=== PATIENT | male | born 1980 | race Caucasian/White ===

== ENCOUNTER 2018-04-01 10:23 | Observation (INO) | payer OTHER, SELFPAY ==
[2018-04-01] VITALS (9 sets, daily range): BP systolic 112–175; BP diastolic 76–127; PULSE 83–125; RESP 15–25; TEMP 36.7–36.9; O2SAT 93–99; BMI 27.0; BMI 24.4
--- NOTE | 2018-04-01 10:38 | EKG12_ITS ---
Test Reason : SOB Blood Pressure : / mmHG Vent. Rate : 113 BPM Atrial Rate : 113 BPM P-R Int : 134 ms QRS Dur : 084 ms QT Int : 322 ms P-R-T Axes : 061 052 048 degrees QTc Int : 441 ms Sinus tachycardia Otherwise normal ECG Confirmed by ELLY NICHOLS, AVELINO ([id number]), editor farm journal DIAMOND KIM ([id number]) on 04/03/2018 4:20:00 PM Referred By: Alhaji Martinez Confirmed By:AVELINO SANABRIA MD
--- NOTE | 2018-04-01 10:42 | NURSING ---
NO OLD EKGS
[2018-04-01 10:53] LABS: Absolute Lymphocyte Count 2.04 X10^3/ul (0.83-4.51); Absolute Neutrophil Count 7.9 X10^3/uL (2.0-7.7); Basophil# 0.02 X10^3/uL; Basophil% 0.2 % (0-1); Eosinophil# 0.32 X10^3/uL; Hematocrit 47.3 % (40-54); Hemoglobin 16.7 g/dl (13.0-16.5); Lymphocyte # 2.04 X10^3/ul (4.0); Lymphocyte % 18.9 % (19-41); Mean Corp Hgb Conc 35.3 g/gl (32-36); Mean Corpuscular Hgb 35.4 pg (27.0-32.0); Mean Corpuscular Volume 100.2 fL (80-94); Mean Platelet Vol. 9.2 fl (6.2-12.0); Monocyte# 0.44 X10^3/uL; Monocyte% 4.1 % (0-10); Neutrophil # 7.91 X10^3/uL (2.7-7.7); Neutrophil % 73.4 % (47-70); POSITIVE COUNT NO; POSITIVE DIFFERENTIAL NO; POSITIVE MORPHOLOGY NO; Platelet Count 169 K/mm3 (150-450); RBC Distribution Width CV 12.1 % (11.6-14.6); RBC Distribution Width SD 44.4 fl (35.1-43.9); Red Blood Count 4.72 M/mm3 (4.6-6.2); White Blood Count 10.8 K/mm3 (4.4-11.0)
--- NOTE | 2018-04-01 10:53 | ED.VISSUMM ---
- ER Visit Summary Date of Service: 04/01/18 Chief Complaint: Rash History of Present Illness: The patient is a 37 M presenting for evaluation secondary to a rash. Patient states that about 2 days ago he fell asleep with his hooded sweatshirt on. He woke up with a rash over his left posterior neck and upper shoulder area which he states that he has been putting antibiotic ointment on. He states that just prior to arrival however he broke out in a head to toe rash that initially was extremely itchy, and now was not so much itching. He denies that there is any sort of prodrome associated with this such as bug bite, fever, illness such as nausea vomiting diarrhea abdominal pain cough or sore throat. He denies any new exposures such as closed, foods, pets, detergents. Patient states that he did switch soaps but this was a couple of weeks ago, and nothing recently. He is never had any prior similar episodes in the past. He denies any travel. He denies anybody with any sort of similar skin rashes. He denies any history of injections or drug use. Denies any new [id number] remedies. Physical Examination: Vital signs notable for heart rate of 114. Well-nourished male no acute distress. Head normocephalic. No conjunctival pallor or scleral icterus. Mucous membranes are moist, no evidence of lip or tongue swelling oropharynx is clear. Neck was supple. Heart was tachycardic and regular no murmurs. Lung sounds are clear. Abdomen was soft nontender extremities were nontender nonedematous. Skin exam shows evidence of what appears to be healing vesicles on patient's left upper back. There are raised palpable wheals noted on the patient's chest, flanks, and arms. Some of these are rather erythematous, but still blanching especially one on the patient's right AC. Negative Nikolsky sign. Test Results: CBC, CMP, coags, urinalysis, toxicology, lactic acid, ethanol unremarkable. Chest x-ray unremarkable. EKG shows sinus tachycardia with rate of 113 no ischemic changes. Emergency Department Course and Treatment: Patient presented for evaluation secondary to a rash. This was a very abnormal appearing rash, so I performed a workup on the patient which ultimately was found to be negative. Patient was given Benadryl Pepcid Solu-Medrol and a liter of normal saline. Repeat evaluation actually showed the patient's rash to be worsening with involvement of his right elbow, nonblanching of the wheel on the patient's right forearm. And some worsening of the rash diffusely across the patient's rest of his body. This point I am unsure if this is infectious, allergic, rheumatologic, but it is worsening and I do believe that he warrants observation. I discussed this with hospitalist and the patient will be admitted. Disposition: Admission Impression: 1. Worsening rash This note was generated with [employer] dictation software. It may contain incorrect words, spelling, and punctuation that were not noted in review of the chart prior to signing ED Disposition - Plan for ED Patient: Chief Complaint: Allergic Reaction Referrals: Care Physician,No Primary [Primary Care Provider] -
[2018-04-01 10:56] LABS: Prothrombin Time (Protime)PT. 12.7 SECONDS (11.7-14.9)
[2018-04-01] MEDS: Famotidine 20 MG Tablet 40 MG PO (10:57)
[2018-04-01] MEDS: 0.9% Normal Saline 1,000 ML 1000 ML IV (10:57)
[2018-04-01] MEDS: MethylPREDNISolone 125 MG/2 ML Vial IV (10:57)
[2018-04-01] MEDS: DiphenhydrAMINE 50 MG/ML Syringe 25 MG IV (10:58)
[2018-04-01 11:05] LABS: ALB/GLOB Ratio 0.9 RATIO (0.9-2.4); AST(SGOT) 60 U/L (15-37); Alanine Aminotransfer ALT/SGPT 87 U/L (16-61); Albumin, Serum 3.9 g/dL (3.2-5.0); Alkaline Phosphatase 72 U/L (45-117); Anion Gap 8 (5-15); BUN 9 mg/dL (7-18); Chloride 107 mmol/L (98-107); EST Glomerular Filtration Rate 89 mL/min (>60); Est Glom Filt Rate - Afr Amer 107 mL/min (>60); Estimated Creatinine Clearance 113.19 ml/min; Globulin 4.2 g/dL (2.2-4.2); Glucose 105 mg/dL (74-106); Potassium 3.6 mmol/L (3.5-5.1); Protein, Total 8.1 g/dL (6.4-8.2); Sodium Level 138 mmol/L (136-145)
--- NOTE | 2018-04-01 11:15 | RAD_ITS ---
STUDY: X-RAY CHEST REASON FOR EXAM: Male, 37 years old. Allergic reaction. TECHNIQUE: PA and lateral views of the chest. COMPARISON: None. FINDINGS: The lungs are clear and expanded. There is no demonstrated pleural abnormality. Normal size heart. Normal mediastinum and yazan. Normal visualized pulmonary arteries. Normal visualized aortic arch and descending thoracic aorta. Normal visualized thoracic spine. Normal visualized ribs, clavicles, and shoulders. There is no demonstrated abnormality of the visualized soft tissue structures of the upper abdomen. RAD/Chest PA and Lateral IMPRESSION: No evidence of acute cardiopulmonary process. Electronically Signed: Jackson Monge DO at 11:30 EST , Service support ,
[2018-04-01 11:31] LABS: Lactic Acid 1.4 mmol/L (0.4-2.0)
[2018-04-01 11:34] LABS: Alcohol, Blood (Medical)-Serum < 3.0 mg/dL
[2018-04-01 12:13] LABS: Mucous, Urine 0 SEEN /hpf (<or=2+); Red Blood Cells-Urine 0 SEEN /hpf (0-5); Squamous Epithelial Cells - UA 0 SEEN /hpf (0-5); White Blood Cells 0 SEEN /hpf (0-5)
[2018-04-01 12:31] LABS: Color, Urine Yellow (Yellow); Glucose, Dipstick Normal (Normal); Ketone-Dipstick Negative (Negative); Leukocyte Esterase-Dipstick Negative /ul (Negative); Nitrite-Dipstick Negative (Negative); Occult Blood-Urine Negative /ul (Negative); Protein-Dipstick Negative (Negative); Urine Bilirubin Dipstick Negative (Negative); Urine Clarity Sl. Cloudy (Clear); Urine Urobilinogen Normal (Normal)
[2018-04-01 12:35] LABS: Amphetamine Urine VISTA NEGATIVE (<1000 ng/mL); Bacteria RARE /hpf (None Seen); Barbiturate Urine VISTA NEGATIVE (< 200 ng/mL); Benzodiazepine Urine VISTA NEGATIVE (< 200 ng/mL); Cocaine Urine VISTA NEGATIVE (< 300 ng/mL); Ecstacy Urine VISTA NEGATIVE (< 500 ng/mL); Methadone Urine VISTA NEGATIVE (< 300 ng/mL); PCP Urine VISTA NEGATIVE (< 25 ng/mL); THC Urine VISTA NEGATIVE (< 50 ng/mL); Vista UDS pH Range 5
--- NOTE | 2018-04-01 13:02 | NURSING ---
MED SURG RASH SEMENTI
--- NOTE | 2018-04-01 14:30 | PCM.HP.STD ---
Problem List (1) Tobacco dependence Status: Chronic History of Present Illness Date of Admission: 04/01/18 Chief Complaint: Rash. The patient is a 37 year old M who presents emergency room due to rash which began this morning. Patient reports itching on the back of the neck area which began this morning. He states he applied antibacterial cream with no relief. He states his rash began to appear other places including lower back, right arm and generalized as well. He reports itching has resolved. Denies fever, chills. He lives at home alone. Not on any daily medications. Has not taken any new medications or other drugs. Denies history of similar rash. He denies any medical history. He is a daily smoker and drinks 2 beers per day. Past Medical History Past Medical History (Chronic Problems): Chronic Problems Tobacco dependence (Chronic) Allergies No Known Allergies Allergy (Verified 04/01/18 10:24) Home Medications: Ambulatory Orders Medication Instructions Recorded NK 04/01/18 Surgical History: no surgical history Psychiatric History: No pertinent psych hx Smoking Status: Current every day smoker Tobacco Use: Cigarettes Drugs: None - *Family History Maternal History Items: Diabetes Paternal History Items: Heart Disease Review of Systems Constitutional: Denies: Chills, Fever, Weight Change HEENT: Denies: Head Aches, Sinus Congestion, Sinus Drainage Cardiovascular: Denies: Chest Pain, Palpitations Respiratory: Denies: Cough, Shortness of breath at rest, Sputum production Gastrointestinal: Denies: Abdominal Pain, Nausea, Vomiting Genitourinary: Denies: Dysuria Musculoskeletal: Denies: Joint Pain, Joint Tenderness Skin: Reports: Rash - Generalized, associated itching Neurological: Denies: Numbness, Tingling, Focal weakness Psychiatric: Denies: Anxiety, Depression, Homicidal Ideations, Suicidal Ideations Hematologic/ Lymphatic: Denies: Easy Bruising, Easy Bleeding VTE Information - Inpt Only VTE Present on Admission: No VTE Mechan Device Prophylaxis: None VTE Pharm Prophylaxis ordered?: No Reason prophylaxis not ordered:: Treatment Not Indicated - Physical Exam General: Alert, Oriented x3, Cooperative, No apparent distress HEENT: Atraumatic, PERRLA, EOMI, Normocephalic Neck: Supple, No JVD, Negative Carotid Bruits Lungs: Clear to auscultation, Normal air movement Cardiovascular: Regular rate, Regular Rhythm, Normal S1, Normal S2, No murmurs Abdomen: Bowel Sounds Present, Soft, Non Tender, Non-Distended Extremities: No clubbing, No cyanosis, No edema, Capillary Refill Less than 3 Seconds Skin: - - Generalized rash with worsened areas on the neck, right arm and lower back. Honey crust colored lesions as well as bullae which appear to be exudate filled with surrounding erythema. Vital Signs Temp Pulse Resp BP Pulse Ox 98.4 F 83 18 158/107 H 93 04/01/18 10:24 04/01/18 13:00 04/01/18 13:00 04/01/18 13:00 04/01/18 13:00 Oxygen Delivery Method Room Air Weight: 205 lb Body Mass Index (BMI) 27.0 Laboratory Tests Past 24 Hrs 04/01/18 04/01/18 04/01/18 10:33 10:33 10:33 WBC 10.8 RBC 4.72 Hgb 16.7 H Hct 47.3 MCV 100.2 H MCH 35.4 H MCHC 35.3 RDW 12.1 RDW Differential 44.4 H Plt Count 169 MPV 9.2 Immature Gran % (Auto) 0.400 Neut % (Auto) 73.4 H Lymph % (Auto) 18.9 L [place] % (Auto) 4.1 Eos % (Auto) 3.0 Baso % (Auto) 0.2 Absolute Neuts (auto) 7.9 H Absolute Lymphs (auto) 2.04 Total Counted Not Reportable PT 12.7 INR 1.0 APTT 23.0 L Sodium 138 Potassium 3.6 Chloride 107 Carbon Dioxide 23.0 Anion Gap 8 BUN 9 Creatinine 1.00 Estim Creat Clear Calc 113.19 Est GFR (MDRD) Af Amer 107 Est GFR (MDRD) Non-Af 89 BUN/Creatinine Ratio 9.0 L Glucose 105 Lactic Acid Calcium 9.0 Total Bilirubin 0.90 AST 60 H ALT 87 H Alkaline Phosphatase 72 Total Protein 8.1 Albumin 3.9 Globulin 4.2 Albumin/Globulin Ratio 0.9 Urine Color Urine Clarity Urine pH Ur Specific [place] Urine Protein Urine Glucose (UA) Urine Ketones Urine Occult Blood Urine Nitrite Urine Bilirubin Urine Urobilinogen Ur Leukocyte Esterase Urine RBC Urine WBC Ur Squamous Epith Cells Urine Bacteria Urine Mucus Urine Opiates Screen Urine Methadone Screen Ur Barbiturates Screen Ur Phencyclidine Scrn Ur Amphetamines Screen U Methamphetamin-MDMA U Benzodiazepines Scrn Urine Cocaine Screen U Cannabinoids Screen Ur Drug Screen Comment Ethyl Alcohol 04/01/18 04/01/18 04/01/18 10:55 10:55 11:55 WBC RBC Hgb Hct MCV MCH MCHC RDW RDW Differential Plt Count MPV Immature Gran % (Auto) Neut % (Auto) Lymph % (Auto) [place] % (Auto) Eos % (Auto) Baso % (Auto) Absolute Neuts (auto) Absolute Lymphs (auto) Total Counted PT INR APTT Sodium Potassium Chloride Carbon Dioxide Anion Gap BUN Creatinine Estim Creat Clear Calc Est GFR (MDRD) Af Amer Est GFR (MDRD) Non-Af BUN/Creatinine Ratio Glucose Lactic Acid 1.4 Calcium Total Bilirubin AST ALT Alkaline Phosphatase Total Protein Albumin Globulin Albumin/Globulin Ratio Urine Color Yellow Urine Clarity Sl. Cloudy Urine pH 6.0 Ur Specific [place] 1.010 Urine Protein Negative Urine Glucose (UA) Normal Urine Ketones Negative Urine Occult Blood Negative Urine Nitrite Negative Urine Bilirubin Negative Urine Urobilinogen Normal Ur Leukocyte Esterase Negative Urine RBC 0 SEEN Urine WBC 0 SEEN Ur Squamous Epith Cells 0 SEEN Urine Bacteria RARE Urine Mucus 0 SEEN Urine Opiates Screen Urine Methadone Screen Ur Barbiturates Screen Ur Phencyclidine Scrn Ur Amphetamines Screen U Methamphetamin-MDMA U Benzodiazepines Scrn Urine Cocaine Screen U Cannabinoids Screen Ur Drug Screen Comment Ethyl Alcohol < 3.0 04/01/18 11:55 WBC RBC Hgb Hct MCV MCH MCHC RDW RDW Differential Plt Count MPV Immature Gran % (Auto) Neut % (Auto) Lymph % (Auto) [place] % (Auto) Eos % (Auto) Baso % (Auto) Absolute Neuts (auto) Absolute Lymphs (auto) Total Counted PT INR APTT Sodium Potassium Chloride Carbon Dioxide Anion Gap BUN Creatinine Estim Creat Clear Calc Est GFR (MDRD) Af Amer Est GFR (MDRD) Non-Af BUN/Creatinine Ratio Glucose Lactic Acid Calcium Total Bilirubin AST ALT Alkaline Phosphatase Total Protein Albumin Globulin Albumin/Globulin Ratio Urine Color Urine Clarity Urine pH Ur Specific [place] Urine Protein Urine Glucose (UA) Urine Ketones Urine Occult Blood Urine Nitrite Urine Bilirubin Urine Urobilinogen Ur Leukocyte Esterase Urine RBC Urine WBC Ur Squamous Epith Cells Urine Bacteria Urine Mucus Urine Opiates Screen NEGATIVE Urine Methadone Screen NEGATIVE Ur Barbiturates Screen NEGATIVE Ur Phencyclidine Scrn NEGATIVE Ur Amphetamines Screen NEGATIVE U Methamphetamin-MDMA NEGATIVE U Benzodiazepines Scrn NEGATIVE Urine Cocaine Screen NEGATIVE U Cannabinoids Screen NEGATIVE Ur Drug Screen Comment Ethyl Alcohol Assessment/Plan 1. Generalized rash, high suspicion for bullous impetigo based on appearance with associated erythema nodosum-obtain culture if bullae area opens. Begin Bactrim DS 1 tab p.o. twice daily for 5 days given extent of lesions. Isolation precautions. Continue benadryl for itching. 2. Tobacco dependence-encouraged tobacco cessation. Nicotine replacement patch. DVT prophylaxis-not indicated. Encourage early ambulation. This patient was seen by RUSSELL Pérez under the supervision of Dr. Martinez.
[2018-04-01 14:53] LABS: Erythrocyte Sedimentation Rate 16 mm/hr (0-15)
[2018-04-01 14:59] LABS: CRP 4.11 mg/L (0.0-3.0)
[2018-04-01] MEDS: DiphenhydrAMINE 25 MG Capsule PO ×3 (16:57→23:31)
[2018-04-01] MEDS: 0.9% NaCl Peripheral Flush Adult/Peds IV (23:31)
[2018-04-02 02:11] VITALS: BP 132/97; PULSE 95; RESP 18; TEMP 36.9; O2SAT 99
[2018-04-02] MEDS: DiphenhydrAMINE 25 MG Capsule PO (06:21)
[2018-04-02] MEDS: 0.9% NaCl Peripheral Flush Adult/Peds IV (06:22)
[2018-04-02 08:11] VITALS: BP 132/92; PULSE 77; RESP 16; TEMP 36.7; O2SAT 97
[2018-04-02] MEDS: CHLORHEXIDINE GLUC 2% CLOTH 1 EACH TOWELETTE TOPICAL (09:21)
--- NOTE | 2018-04-02 10:32 | DCINST_ITS ---
- Discharge Diagnoses Current Active Problems: Current Active and Chronic Problems Tobacco dependence (Chronic) You will use the following diet at home:: No restrictions Discharge Activity: - - Good handwashing. Wash bedding and clothing at home in hot water. Complete full course of antibiotics. Call your doctor if your incision/area has: Increased Pain/ Swelling, Increased Redness Call your doctor if you observe: Fever of 101 or Higher Allergies/Adverse Reactions: Allergies No Known Allergies Allergy (Verified 04/01/18 10:24) Medications to take at Discharge Chlorhexidine Gluc 2% Cloth 1 each TOPICAL DAILY 5 Days #5 towelette 04/02/18 DiphenhydrAMINE [Benadryl] 25 mg PO TID PRN PRN #12 capsule 04/02/18 Mupirocin Calcium [Bactroban Nasal] 1 gm NS BID 5 Days #1 oint...g. 04/02/18 Smz/Tmp Ds [Bactrim Ds] 1 tablet PO BID #10 tablet 04/02/18 The following prescriptions were given: Chlorhexidine Gluc 2% Cloth 1 each TOPICAL DAILY 5 Days #5 towelette DiphenhydrAMINE [Benadryl] 25 mg PO TID PRN PRN #12 capsule PRN Reason: Itching Mupirocin Calcium [Bactroban Nasal] 1 gm NS BID 5 Days #1 oint...g. Smz/Tmp Ds [Bactrim Ds] 1 tablet PO BID #10 tablet Primary Care Physician: Care Physician,No Primary [Primary Care Provider] - Please follow up with your Primary Care Physician in: 1 Week Test Results: Test results from this visit will be discussed in further detail at your follow- up appointment, if applicable. Proposed Discharge Date: 04/02/18
--- NOTE | 2018-04-02 10:42 | DS.PCM_ITS ---
Discharge Date and Diagnosis Date of Admission: 04/01/18 Date of Discharge: 04/02/18 - Primary Discharge Diagnosis 1. Impetigo with dermal reaction 2. Tobacco dependence - Secondary Discharge Diagnosis Chronic Problems Tobacco dependence (Chronic) Hospital Course and Treatment Imaging Results: Diagnostic Data Chest X-Ray 04/01/18 11:15 IMPRESSION: No evidence of acute cardiopulmonary process. Electronically Signed: Jackson Monge DO at 11:30 EST , Service support , Operations: None Procedures: None Summary of Care Provided: The patient is a 37 year old M admitted 04/01/2018 due to rash. 1. Impetigo with dermal reaction-patient received IV Unasyn during admission. Improvement in overall appearance of lesions. Blood and wound cultures pending. Patient will continue chlorhexidine wipes daily for 5 days and nasal Bactroban twice daily for 5 days. Bactrim 1 tab p.o. twice daily for 5 days. Patient can continue Benadryl 25 mg p.o. 3 times daily as needed for itching. He was instructed not to drive or operate heavy equipment while taking Benadryl. Patient was instructed on handwashing and washing home bedding, towels and clothing in hot water. Follow-up with primary care physician in 1 week. 2. Tobacco dependence-encouraged tobacco cessation. Nicotine replacement patch. General: Alert, Oriented x3, Cooperative, No apparent distress HEENT: Atraumatic, PERRLA, EOMI, Normocephalic Neck: Supple, No JVD, Negative Carotid Bruits Lungs: Clear to auscultation, Normal air movement Cardiovascular: Regular rate, Regular Rhythm, Normal S1, Normal S2, No murmurs Abdomen: Bowel Sounds Present, Soft, Non Tender, Non-Distended Extremities: No clubbing, No cyanosis, No edema, Capillary Refill Less than 3 Seconds Skin: Generalized rash with worsened areas on the neck, right arm and lower back. Honey crust colored lesions as well as bullae with surrounding erythema. Lesions improved. Patient seen and examined prior to discharge. Physical assessment as noted above. Patient stable for discharge home with a follow-up accommodation's as noted above. This patient was seen by RUSSELL Pérez under the supervision of Dr. Martinez. - Physical Exam Vital Signs Temp Pulse Resp BP Pulse Ox 98.0 F 77 16 132/92 H 97 04/02/18 08:11 04/02/18 08:11 04/02/18 08:11 04/02/18 08:11 04/02/18 08:11 Oxygen Delivery Method Room Air Weight: 185 lb 3.013 oz Body Mass Index (BMI) 24.4 Intake and Output for Last 24 Hours 03/31/18 04/01/18 04/02/18 23:59 23:59 23:59 Intake Total 645 / 645 Balance 645 / 645 Laboratory Tests Past 24 Hrs 04/01/18 04/01/18 04/01/18 10:33 10:33 10:33 WBC 10.8 RBC 4.72 Hgb 16.7 H Hct 47.3 MCV 100.2 H MCH 35.4 H MCHC 35.3 RDW 12.1 RDW Differential 44.4 H Plt Count 169 MPV 9.2 Immature Gran % (Auto) 0.400 Neut % (Auto) 73.4 H Lymph % (Auto) 18.9 L [place] % (Auto) 4.1 Eos % (Auto) 3.0 Baso % (Auto) 0.2 Absolute Neuts (auto) 7.9 H Absolute Lymphs (auto) 2.04 Total Counted Not Reportable ESR PT 12.7 INR 1.0 APTT 23.0 L Sodium 138 Potassium 3.6 Chloride 107 Carbon Dioxide 23.0 Anion Gap 8 BUN 9 Creatinine 1.00 Estim Creat Clear Calc 113.19 Est GFR (MDRD) Af Amer 107 Est GFR (MDRD) Non-Af 89 BUN/Creatinine Ratio 9.0 L Glucose 105 Lactic Acid Calcium 9.0 Total Bilirubin 0.90 AST 60 H ALT 87 H Alkaline Phosphatase 72 C-React Prot Ext Range Total Protein 8.1 Albumin 3.9 Globulin 4.2 Albumin/Globulin Ratio 0.9 Urine Color Urine Clarity Urine pH Ur Specific [place] Urine Protein Urine Glucose (UA) Urine Ketones Urine Occult Blood Urine Nitrite Urine Bilirubin Urine Urobilinogen Ur Leukocyte Esterase Urine RBC Urine WBC Ur Squamous Epith Cells Urine Bacteria Urine Mucus Urine Opiates Screen Urine Methadone Screen Ur Barbiturates Screen Ur Phencyclidine Scrn Ur Amphetamines Screen U Methamphetamin-MDMA U Benzodiazepines Scrn Urine Cocaine Screen U Cannabinoids Screen Ur Drug Screen Comment Ethyl Alcohol 04/01/18 04/01/18 04/01/18 10:33 10:33 10:55 WBC RBC Hgb Hct MCV MCH MCHC RDW RDW Differential Plt Count MPV Immature Gran % (Auto) Neut % (Auto) Lymph % (Auto) [place] % (Auto) Eos % (Auto) Baso % (Auto) Absolute Neuts (auto) Absolute Lymphs (auto) Total Counted ESR 16 H PT INR APTT Sodium Potassium Chloride Carbon Dioxide Anion Gap BUN Creatinine Estim Creat Clear Calc Est GFR (MDRD) Af Amer Est GFR (MDRD) Non-Af BUN/Creatinine Ratio Glucose Lactic Acid Calcium Total Bilirubin AST ALT Alkaline Phosphatase C-React Prot Ext Range 4.11 H Total Protein Albumin Globulin Albumin/Globulin Ratio Urine Color Urine Clarity Urine pH Ur Specific [place] Urine Protein Urine Glucose (UA) Urine Ketones Urine Occult Blood Urine Nitrite Urine Bilirubin Urine Urobilinogen Ur Leukocyte Esterase Urine RBC Urine WBC Ur Squamous Epith Cells Urine Bacteria Urine Mucus Urine Opiates Screen Urine Methadone Screen Ur Barbiturates Screen Ur Phencyclidine Scrn Ur Amphetamines Screen U Methamphetamin-MDMA U Benzodiazepines Scrn Urine Cocaine Screen U Cannabinoids Screen Ur Drug Screen Comment Ethyl Alcohol < 3.0 04/01/18 04/01/18 04/01/18 10:55 11:55 11:55 WBC RBC Hgb Hct MCV MCH MCHC RDW RDW Differential Plt Count MPV Immature Gran % (Auto) Neut % (Auto) Lymph % (Auto) [place] % (Auto) Eos % (Auto) Baso % (Auto) Absolute Neuts (auto) Absolute Lymphs (auto) Total Counted ESR PT INR APTT Sodium Potassium Chloride Carbon Dioxide Anion Gap BUN Creatinine Estim Creat Clear Calc Est GFR (MDRD) Af Amer Est GFR (MDRD) Non-Af BUN/Creatinine Ratio Glucose Lactic Acid 1.4 Calcium Total Bilirubin AST ALT Alkaline Phosphatase C-React Prot Ext Range Total Protein Albumin Globulin Albumin/Globulin Ratio Urine Color Yellow Urine Clarity Sl. Cloudy Urine pH 6.0 Ur Specific [place] 1.010 Urine Protein Negative Urine Glucose (UA) Normal Urine Ketones Negative Urine Occult Blood Negative Urine Nitrite Negative Urine Bilirubin Negative Urine Urobilinogen Normal Ur Leukocyte Esterase Negative Urine RBC 0 SEEN Urine WBC 0 SEEN Ur Squamous Epith Cells 0 SEEN Urine Bacteria RARE Urine Mucus 0 SEEN Urine Opiates Screen NEGATIVE Urine Methadone Screen NEGATIVE Ur Barbiturates Screen NEGATIVE Ur Phencyclidine Scrn NEGATIVE Ur Amphetamines Screen NEGATIVE U Methamphetamin-MDMA NEGATIVE U Benzodiazepines Scrn NEGATIVE Urine Cocaine Screen NEGATIVE U Cannabinoids Screen NEGATIVE Ur Drug Screen Comment Ethyl Alcohol Discharge Diet: No Restrictions Discharge Activity: - - Good handwashing. Wash bedding and clothing at home in hot water. Complete full course of antibiotics. Call your doctor if your incision/area has: Increased Pain/ Swelling, Increased Redness Call your doctor if you observe: Fever of 101 or Higher Home Medications: Medications to take at Discharge Chlorhexidine Gluc 2% Cloth 1 each TOPICAL DAILY 5 Days #5 towelette 04/02/18 DiphenhydrAMINE [Benadryl] 25 mg PO TID PRN PRN #12 capsule 04/02/18 Mupirocin Calcium [Bactroban Nasal] 1 gm NS BID 5 Days #1 oint...g. 04/02/18 Smz/Tmp Ds [Bactrim Ds] 1 tablet PO BID #10 tablet 04/02/18 Following Prescrptions Were Given to Patient: Chlorhexidine Gluc 2% Cloth 1 each TOPICAL DAILY 5 Days #5 towelette DiphenhydrAMINE [Benadryl] 25 mg PO TID PRN PRN #12 capsule PRN Reason: Itching Mupirocin Calcium [Bactroban Nasal] 1 gm NS BID 5 Days #1 oint...g. Smz/Tmp Ds [Bactrim Ds] 1 tablet PO BID #10 tablet Primary Care Physician: Care Physician,No Primary [Primary Care Provider] - Please follow up with your Primary Care Physician in: 1 Week Disposition: Home Minutes spent on discharge:: 35 Patient Condition:: Stable Medical Necessity - Tobacco Use Smoking Status: Current every day smoker Tobacco Use: Cigarettes Meaningful Use Info Meaningful Use Diagnoses (Choose all that apply): None applicable
== END 2018-04-02 12:00 | disposition home or self-care (01) ==
LOC: ED 11:33 → MS3 13:28
PROVIDERS: Nurse Practitioner Family; Admitting Provider Internal Medicine; Emergency Provider Emergency Medicine; Referring Provider Internal Medicine; Visit Provider Internal Medicine
DX: L01.00 Impetigo, unspecified (principal); F17.210 Nicotine dependence, cigarettes, uncomplicated; R00.0 Tachycardia, unspecified
CPT/HCPCS: 71046; 80053; 80307; 80320; 81001; 83605; 85025; 85610; 85652; 85730; 86140; 87040; 87070; 87205; 93005; 96365; 96366; 96375; 99218; 99283; 99406; J7030; A4216; G0378; G0480; J0295

== ENCOUNTER → 2018-04-17 12:34 | Outpatient (CLI) | payer OTHER, SELFPAY ==
[2018-04-01 14:29] VITALS: BMI 24.4
--- NOTE | 2018-04-17 12:38 | RAD_ITS ---
STUDY: X-RAY - LEFT HIP REASON FOR EXAM: Male, 37 years old. Pain. TECHNIQUE: 2 views of the hip and a single image of the pelvis. COMPARISON: None. FINDINGS: Normal femoral head, neck, intertrochanteric region and visualized proximal femur. Normal acetabulum. Normal hip joint. Normal visualized superior and inferior pubic rami and ischial tuberosities. RAD/HIP, UNI W/ Pelvis 2-3 Views IMPRESSION: Within normal limits x-ray examination of the hip. Electronically Signed: Cait Villagran MD at 10:30 EST Tel , Service support ,
[2018-04-17 16:35] LABS: M R Staph aureus DNA By PCR Negative (Negative); Probe Check PASS; Specimen Processing Control PASS
--- OUTSIDE RECORDS SUMMARY | 2018-06-03 14:56 | XMS RPT_ITS | Continuity of Care Document ---
:1980 Author Organization [facility] Address [address] [facility] [address] [place] [address] Phone Care Team Providers Name Role Phone Peyton Dickens CNP Unavailable HelenaSelina flores Unavailable Unavailable Unavailable Unavailable Problems Name Dates Details BMI 26.0-26.9,adult (Z68.26, V85.22) Status: Active CRP elevated (R79.82, 790.95) Comments: CRP 4.11 Status: Active Current smoker (F17.200, 305.1) Status: Active Elevated hemoglobin (D58.2, 282.7) Comments: 16.7, is smoker Status: Active Elevated sed rate (R70.0, 790.1) Comments: 16 on 04-01 Status: Active Eye swelling, right (H57.89, 379.92) Comments: ? from rash fromhead Status: Active 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 (M25.552, 719.45) Comments: went to ER x 2 given meloxicam which did not help and xrays x 2 showing calcification and or loose body rt fem head, suggested to get MRI if not improving Status: Active Rash in adult (R21, 782.1) Comments: Impitiego with dermal reaction on antibiotics improving, now normal, was on bactrim Status: Active Staph infection (B95.8, 041.10) Comments: impetiago with dermal reaction per ER, given IV unisyn with improvment in appearnce? cellulitis Status: Active Tachycardia (R00.0, 785.0) Comments: encouraged fluids off work, repeat labs follow up 2 days Status: Active Tremors of nervous system (R25.1, 781.0) Comments: ? per pt since been on antibiotics Status: Active Unspecified Diagnosis Status: Active Medications Name Dates Details Cyclobenzaprine HCl 10 MG Oral Tablet 1 (one) Tablet three times daily prn for 30 days Quantity: 90 {Tablet} Refills: 3 Ordered:24-Apr-2018 Franka GERRI, Peyton Rocha CNP, Peyton Mota Start : 24-Apr-2018 Active DiphenhydrAMINE HCl 25 MG Oral Capsule 1 (one) Capsule tid prn for 30 days Quantity: 30 {Capsule} Refills: 0 Ordered:04-Apr-2018 Franka WASH MILL OPERATOR, Peyton Rocha CNP, Peyton Mota Start : 04-Apr-2018 Active Meloxicam 15 MG Oral Tablet 1 (one) Tablet daily for 30 days Quantity: 30 {Tablet} Refills: 3 Ordered:24-Apr-2018 Franka GERRI, Peyton Rocha CNP, Peyton Mota Start : 24-Apr-2018 Active Bactrim DS 800-160 MG Oral Tablet 1 (one) Tablet bid x 7 days for 7 days Quantity: 14 {Tablet} Refills: 0 Ordered:17-Apr-2018 Franka WASH MILL OPERATOR, Peyton Rocha CNP, Peyton Mota Start : 17-Apr-2018 End : 24-Apr-2018 Inactive Mupirocin 2 % External Ointment 1 (one) Application bid x5 days (nasal) for 30 days Quantity: 30 {Applicator} Refills: 0 Ordered:24-Apr-2018 Selina Malik Start : 04-Apr-2018 End : 24-Apr-2018 Discontinued Allergies and Adverse Reactions Name Dates Details No Known Allergies (Allergy) Onset: 04-Apr-2018 Status: Active No Known Drug Allergies (Allergy) Onset: 04-Apr-2018 Status: Active Procedures Procedure Dates Details left testicle Completed Comments: removal due to hydrocele Date Value Details 23-Apr-2018 Discharge Instruction Result: Comments: See Note; NOTES: [facility] Medical Records Department [address] [place] [address] Discharge Instruction 04/23/18 0626 MR#: [id number] Acct: [id number] Name: Loco UP Rep #: [id number] : 1980 37 From: Gabriele Dela Cruz MD PCP: Peyton Dickens NP Status: REG ER ED Disposition - Plan for ED Patient: Chief Complaint: Lower Extremity Injury Instructions: ED S train Muscle Ext Prescriptions: Cyclobenzaprine [Flexeril] 10 mg PO TID PRN #20 tab PRN Reason: Muscle Spasm Referrals: Peyton Dickens, PUBLIC RELATIONS SENIOR ASSOCIATE-C [Primary Care Provider] - What to do if you have Problems For any increased pain, shortness of breath, bleeding, nausea or vomiting, chest pain, or any unexpected problems, contact your Primary Care Provider. Call [facility] ([phone]) or report to the closest Emergency Room. Call 911 if necessary. 04/23/18626 <Electronically signed by Gabriele Dela Cruz MD> Date Gabriele Dela Cruz MD Co signer Signature (If Indicated): Date CC: Peyton Dickens NP 23-Apr-2018 Emergency Department Summary Result: Comments: See Note; NOTES: [facility] Medical Records Department [address] [place] [address] Emergency Department Summary 04/23/18 0623 MR#: [id number] Acct: [id number] Name: MELISSA UP Rep #: [id number] : 1980 37 From: Gabriele Dela Cruz MD PCP: Peyton Dickens NP Status: REG ER - ER Visit Summary Date of Service: 04/23/18 Chief Complaint: 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. History of Present Illness: The patient is a 37 M who presents with left hip pain. This has been present for about a week. He was seen in the emergency department 2 days ago and was diagnosed with tendinitis. Halie ent states this is not tendinitis. He states it feels like muscle is tight. He complains of some muscle spasm. No history of trauma or injury. No paresthesias or weak ness. He denies any other pain. No fever chest pain shortness of breath abdominal pain vomiting diarrhea. He was prescribed meloxicam which he states is not helping. Physical Examination: Afebrile may ls are unremarkable Heart regular rate and rhythm Lungs are clear Abdomen soft Patient does have lateral left hip and buttock tenderness overlying skin appears normal there is no erythema there is no cr epitus there is no fluctuance this is proximal and posterior to the trochanteric bursa I do not think this is trochanteric bursitis Active full range of motion of the hip without pain No lower extremity edema brisk capillary refill with normal sensation Test Results: Left hip x- ray shows a normal left hip there is a loose body or calcification of the right hip but he has no pain in that area and did not believe it is related to his current symptoms. Emergency Department Course and Treatment: I do believe this is due to musculoskeletal etiology. The patient is already on meloxicam. He is requesting a muscle relaxer. He was given Flexeril and a prescription for the same. I advised that he follow-up with his primary care provider. He may benefit from physical therapy. If symptoms are not improving he may need further evaluation such as an MRI. He understands to return for new or worsening symptoms. He was discharged. Treatment Plan: [] Disposition: Discharge Impression: 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 This n ote was generated with Eye-Fi dictation software. It may contain incorrect words, spelling, and punctuation that were not noted in review of the chart prior to signing ED Disposition - Plan for ED Noel weiss: Chief Complaint: Lower Extremity Injury Referrals: Peyton Dickens, PUBLIC RELATIONS SENIOR ASSOCIATE-C [Primary Care Provider] - What to do if you have Problems For any increased pain, shortness of breath, bleeding, nausea or vomiting, chest pain, or any unexpected problems, contact your Primary Care Provider. Call [facility] ([phone]) or report to the closest Emergency Room. Call 911 if necessary. 04/23/18 0626 <Electronically signed by Gabriele Dela Cruz MD> Date Gabriele Dela Cruz MD Cosigner Signature (If Indicated): Date CC: Peyton Dickens NP 23-Apr-2018 HIP, UNI W/ Pelvis 2-3 Views Result: Comments: See Note; NOTES: [facility] Imaging Services [address] [place] [address] HIP, UNI W/ Pelvis 2-3 Views MR#: [id number] Acct: [id number] Name: MELISSA UP Rep #: [id number] : 1980 M 37 From: Estevan Cunha PCP: Peyton Dickens NP Status: REG ER Study: HIP, UNI W/ Pelvis 2-3 Views Date of Exam: 04/23/18 Exam# [id number] Ordering Dr: Gabriele Dela Cruz MD STUDY: X-RAY - LEFT HIP, SINGLE VIEW OF THE PELVIS REASON FOR EXAM: Male, 37 years old. Left trochanteric tendinitis. TECHNIQUE: 2 views of the left hip. Single view of the pelvis. COMPARISON: None. FINDINGS: Normal femoral head, neck, intertrochanteric region and visualized proximal femur. Normal acetabulum. Normal hip joint. Incidentally noted is an accessory ossicl e less. Normal visualized superior and inferior pubic rami and ischial tuberosities. 7 mm ovoid density adjacent to the superior lateral aspect of the right femoral head. This could represent a soft ti ssue calcification or loose body in the right hip joint. RAD/HIP, UNI W/ Pelvis 2-3 Views IMPRESSION: Normal x-ray examination of the left hip. Soft tissue calcification versus loose body right hip. Correlate clinically. Electronically Signed: Estevan Cunha MD at 6:02 EST , Service support , Fax CC: Peyton Dickens NP; Gabriele Dela Cruz MD [employer]: Signed 23-Apr-2018 HIP, UNI W/ Pelvis 2-3 Views Result: Comments: See Note; NOTES: [facility] Imaging Services [address] [place] [address] HIP, UNI W/ Pelvis 2-3 Views MR#: [id number] Acct: [id number] Name: MELISSA UP Rep #: [id number] : 1980 M 37 From: Estevan Cunha PCP: Peyton Dickens NP Status: DEP ER Study: HIP, UNI W/ Pelvis 2-3 Views Date of Exam: 04/23/18 Exam# [id number] Ordering Dr: Gabriele Dela Cruz MD STUDY: X-RAY - LEFT HIP, SINGLE VIEW OF THE PELVIS REASON FOR EXAM: Male, 37 years old. Left trochanteric tendinitis. TECHNIQUE: 2 views of the left hip. Single view of the pelvis. COMPARISON: None. FINDINGS: Normal femoral head, neck, intertrochanteric region and visualized proximal femur. Normal acetabulum. Normal hip joint. Incidentally noted is an accessory ossicl e less. Normal visualized superior and inferior pubic rami and ischial tuberosities. 7 mm ovoid density adjacent to the superior lateral aspect of the right femoral head. This could represent a soft ti ssue calcification or loose body in the right hip joint. RAD/HIP, UNI W/ Pelvis 2-3 Views IMPRESSION: Normal x-ray examination of the left hip. Soft tissue calcification versus loose body right hip. Correlate clinically. Electronically Signed: Estevan Cunha MD at 6:02 EST , Service support , Fax CC: Peyton Dickens NP; Gabriele Dela Cruz MD [employer]: Signed 23-Apr-2018 HIP, UNI W/ Pelvis 2-3 Views Result: Comments: See Note; NOTES: [facility] Imaging Services [address] [place] [address] HIP, UNI W/ Pelvis 2-3 Views MR#: [id number] Acct: [id number] Name: MELISSA UP Rep #: [id number] : 1980 M 37 From: Estevan Cunha PCP: Chrissie CORRIGAN, Peyton Status: DEP ER Study: HIP, UNI W/ Pelvis 2-3 Views Date of Exam: 04/23/18 Exam# [id number] Ordering Dr: Gabriele Dela Cruz MD STUDY: X-RAY - LEFT HIP, SINGLE VIEW OF THE PELVIS REASON FOR EXAM: Male, 37 years old. Left trochanteric tendinitis. TECHNIQUE: 2 views of the left hip. Single view of the pelvis. COMPARISON: None. FINDINGS: Normal femoral head, neck, intertrochanteric region and visualized proximal femur. Normal acetabulum. Normal hip joint. Incidentally noted is an accessory ossicl e less. Normal visualized superior and inferior pubic rami and ischial tuberosities. 7 mm ovoid density adjacent to the superior lateral aspect of the right femoral head. This could represent a soft ti ssue calcification or loose body in the right hip joint. RAD/HIP, UNI W/ Pelvis 2-3 Views IMPRESSION: Normal x-ray examination of the left hip. Soft tissue calcification versus loose body right hip. Correlate clinically. Electronically Signed: Estevan Cunha MD at 6:02 EST , Service support , Fax CC: Peyton Dickens NP; Gabriele Dela Cruz MD [employer]: Signed 23-Apr-2018 HIP, UNI W/ Pelvis 2-3 Views Result: Comments: See Note; NOTES: [facility] Imaging Services [address] [place] [address] HIP, UNI W/ Pelvis 2-3 Views MR#: [id number] Acct: [id number] Name: MELISSA UP Rep #: [id number] : 1980 M 37 From: Estevan Cunha PCP: Peyton Dickens NP Status: DEP ER Study: HIP, UNI W/ Pelvis 2-3 Views Date of Exam: 04/23/18 Exam# [id number] Ordering Dr: Gabriele Dela Cruz MD STUDY: X-RAY - LEFT HIP, SINGLE VIEW OF THE PELVIS REASON FOR EXAM: Male, 37 years old. Left trochanteric tendinitis. TECHNIQUE: 2 views of the left hip. Single view of the pelvis. COMPARISON: None. FINDINGS: Normal femoral head, neck, intertrochanteric region and visualized proximal femur. Normal acetabulum. Normal hip joint. Incidentally noted is an accessory ossicl e less. Normal visualized superior and inferior pubic rami and ischial tuberosities. 7 mm ovoid density adjacent to the superior lateral aspect of the right femoral head. This could represent a soft ti ssue calcification or loose body in the right hip joint. RAD/HIP, UNI W/ Pelvis 2-3 Views IMPRESSION: Normal x-ray examination of the left hip. Soft tissue calcification versus loose body right hip. Correlate clinically. Electronically Signed: Estevan Cunha MD at 6:02 EST , Service support , Fax CC: Peyton Dickens NP; Gabriele Dela Cruz MD [employer]: Signed 23-Apr-2018 HIP, UNI W/ Pelvis 2-3 Views Result: Comments: See Note; NOTES: [facility] Imaging Services [address] [place] [address] HIP, UNI W/ Pelvis 2-3 Views MR#: [id number] Acct: [id number] Name: MELISSA UP Rep #: [id number] : 1980 M 37 From: Estevan Cnuha PCP: Peyton Dickens NP Status: DEP ER Study: HIP, UNI W/ Pelvis 2-3 Views Date of Exam: 04/23/18 Exam# [id number] Ordering Dr: Gabriele Dela Cruz MD STUDY: X-RAY - LEFT HIP, SINGLE VIEW OF THE PELVIS REASON FOR EXAM: Male, 37 years old. Left trochanteric tendinitis. TECHNIQUE: 2 views of the left hip. Single view of the pelvis. COMPARISON: None. FINDINGS: Normal femoral head, neck, intertrochanteric region and visualized proximal femur. Normal acetabulum. Normal hip joint. Incidentally noted is an accessory ossicl e less. Normal visualized superior and inferior pubic rami and ischial tuberosities. 7 mm ovoid density adjacent to the superior lateral aspect of the right femoral head. This could represent a soft ti ssue calcification or loose body in the right hip joint. RAD/HIP, UNI W/ Pelvis 2-3 Views IMPRESSION: Normal x-ray examination of the left hip. Soft tissue calcification versus loose body right hip. Correlate clinically. Electronically Signed: Estevan Cunha MD at 6:02 EST , Service support , Fax CC: Peyton Dickens NP; Gabriele Dela Cruz MD [employer]: Signed 21-Apr-2018 Emergency Department Summary Result: Comments: See Note; NOTES: [facility] Medical Records Department [address] [place] [address] Emergency Department Summary 04/21/181952 MR#: [id number] Acct: [id number] Name: MELISSA UP Rep #: [id number] : 1980 37 From: Hiram Hardy DO PCP: Peyton Dickens NP Status: REG ER - ER Visit Summary Date of Service: 04/21/18 Chief Complaint: 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 History of Pr esent Illness: The patient is a 37 M who presents with left hip pain that has been getting worse over the past 3 days. Patient denies any trauma or injury. Patient states the pain is over the lateral as pect of the left hip. Patient states pain is worse with weightbearing and ambulation. Patient does admit to some paresthesias over the lateral aspect of the left hip. Patient states the pain is now radi ating into the left thigh. Patient denies any fevers or chills. Patient denies any weakness. Physical Examination: Vital signs are stable. Patient is afebrile. Patient is in no acute distress. Musculos keletal exam reveals tenderness over the lateral aspect of the left hip just posterior to the greater trochanter at the insertion of the piriformis muscle. There is no bony crepitance or step-off. There is good range of motion. There is no laxity appreciated. There is no clicking or popping. Strength is 5/5 bilaterally. There are no sensory deficits noted. The remaining physical exam is within normal limits. Emergency Department Course and Treatment: Patient was given a prescription for meloxicam. Patient was instructed to use ice to the area. Patient was instructed to follow-up with his primary ca re physician in 5-7 days. Patient understood and was agreeable with the plan. All questions were answered. Disposition: Discharged home Impression: Tendinitis left hip This note was generated with Eye-Fi dictation software. It may contain incorrect words, spelling, and punctuation that were not noted in review of the chart prior to signing ED Disposition - Plan for ED Patient: Disposition: Jaron e or Assisted Living Chief Complaint: Lower Extremity Injury Diagnosis: Tendinitis of trochanteric region of left hip Instructions: ED Sprain Hip Prescriptions: Meloxicam [Mobic] 15 mg PO DAILY #10 tab Referrals: Peyton Dickens NP-C [Primary Care Provider] - What to do if you have Problems For any increased pain, shortness of breath, bleeding, nausea or vomiting, chest pain, or any unexpected proble ms, contact your Primary Care Provider. Call [facility] ([phone]) or report to the closest Emergency Room. Call 911 if necessary. 04/21/182000 <Electronically signed by Hiram Gomez er DO> Date Hiram Hardy DO Cosigner Signature (If Indicated): Date CC: Peyton Dickens NP 21-Apr-2018 Emergency Department Summary Result: Comments: See Note; NOTES: [facility] Medical Records Department [address] [place] [address] Emergency Department Summary 04/21/181952 MR#: [id number] Acct: [id number] Name: MELISSA UP Rep #: [id number] : 1980 37 From: Hiram Hardy DO PCP: Peyton Dickens NP Status: REG ER - ER Visit Summary Date of Service: 04/21/18 Chief Complaint: 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 History of Pr esent Illness: The patient is a 37 M who presents with left hip pain that has been getting worse over the past 3 days. Patient denies any trauma or injury. Patient states the pain is over the lateral as pect of the left hip. Patient states pain is worse with weightbearing and ambulation. Patient does admit to some paresthesias over the lateral aspect of the left hip. Patient states the pain is now radi ating into the left thigh. Patient denies any fevers or chills. Patient denies any weakness. Physical Examination: Vital signs are stable. Patient is afebrile. Patient is in no acute distress. Musculos keletal exam reveals tenderness over the lateral aspect of the left hip just posterior to the greater trochanter at the insertion of the piriformis muscle. There is no bony crepitance or step-off. There is good range of motion. There is no laxity appreciated. There is no clicking or popping. Strength is 5/5 bilaterally. There are no sensory deficits noted. The remaining physical exam is within normal limits. Emergency Department Course and Treatment: Patient was given a prescription for meloxicam. Patient was instructed to use ice to the area. Patient was instructed to follow-up with his primary ca re physician in 5-7 days. Patient understood and was agreeable with the plan. All questions were answered. Disposition: Discharged home Impression: Tendinitis left hip This note was generated with Eye-Fi dictation software. It may contain incorrect words, spelling, and punctuation that were not noted in review of the chart prior to signing ED Disposition - Plan for ED Patient: Disposition: Jaron e or Assisted Living Chief Complaint: Lower Extremity Injury Diagnosis: Tendinitis of trochanteric region of left hip Instructions: ED Sprain Hip Prescriptions: Meloxicam [Mobic] 15 mg PO DAILY #10 tab Referrals: Peyton Dickens, PUBLIC RELATIONS SENIOR ASSOCIATE-C [Primary Care Provider] - What to do if you have Problems For any increased pain, shortness of breath, bleeding, nausea or vomiting, chest pain, or any unexpected proble ms, contact your Primary Care Provider. Call [facility] ([phone]) or report to the closest Emergency Room. Call 911 if necessary. 04/21/182000 <Electronically signed by Hiram hall DO> Date Hiram Hardy DO Cosigner Signature (If Indicated): Date CC: Peyton Dickens NP 21-Apr-2018 Emergency Department Summary Result: Comments: See Note; NOTES: [facility] Medical Records Department [address] [place] [address] Emergency Department Summary 04/21/181952 MR#: [id number] Acct: [id number] Name: MELISSA UP Rep #: [id number] : 1980 37 From: Hiram Hardy DO PCP: Peyton Dickens NP Status: REG ER - ER Visit Summary Date of Service: 04/21/18 Chief Complaint: 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 History of Pr esent Illness: The patient is a 37 M who presents with left hip pain that has been getting worse over the past 3 days. Patient denies any trauma or injury. Patient states the pain is over the lateral as pect of the left hip. Patient states pain is worse with weightbearing and ambulation. Patient does admit to some paresthesias over the lateral aspect of the left hip. Patient states the pain is now radi ating into the left thigh. Patient denies any fevers or chills. Patient denies any weakness. Physical Examination: Vital signs are stable. Patient is afebrile. Patient is in no acute distress. Musculos keletal exam reveals tenderness over the lateral aspect of the left hip just posterior to the greater trochanter at the insertion of the piriformis muscle. There is no bony crepitance or step-off. There is good range of motion. There is no laxity appreciated. There is no clicking or popping. Strength is 5/5 bilaterally. There are no sensory deficits noted. The remaining physical exam is within normal limits. Emergency Department Course and Treatment: Patient was given a prescription for meloxicam. Patient was instructed to use ice to the area. Patient was instructed to follow-up with his primary ca re physician in 5-7 days. Patient understood and was agreeable with the plan. All questions were answered. Disposition: Discharged home Impression: Tendinitis left hip This note was generated with Eye-Fi dictation software. It may contain incorrect words, spelling, and punctuation that were not noted in review of the chart prior to signing ED Disposition - Plan for ED Patient: Disposition: Jaron e or Assisted Living Chief Complaint: Lower Extremity Injury Diagnosis: Tendinitis of trochanteric region of left hip Instructions: ED Sprain Hip Prescriptions: Meloxicam [Mobic] 15 mg PO DAILY #10 tab Referrals: Peyton Dickens, SHEKHAR-C [Primary Care Provider] - What to do if you have Problems For any increased pain, shortness of breath, bleeding, nausea or vomiting, chest pain, or any unexpected proble ms, contact your Primary Care Provider. Call [facility] ([phone]) or report to the closest Emergency Room. Call 911 if necessary. 04/21/182000 <Electronically signed by Hiram hall DO> Date Hiram Hayley Bereketfelicitarafael Signature (If Indicated): Date CC: Peyton Dickens NP 17-Apr-2018 HIP, UNI W/ Pelvis 2-3 Views Result: Comments: See Note; NOTES: [facility] Imaging Services [address] [place] [address] HIP, UNI W/ Pelvis 2-3 Views MR#: [id number] Acct: [id number] Name: MELISSA UP Rep #: [id number] : 1980 M 37 From: Cait Villagran MD PCP: Care Physician, No Primary Status: REG CLI Study: HIP, UNI W/ Pelvis 2-3 Views Date of Exam: 04/17/18 Exam# [id number] Ordering Dr: Peyton Dickens PUBLIC RELATIONS SENIOR ASSOCIATE-C STUDY: X-RAY - LEFT HIP REASON FOR EXAM: Male, 37 years old. Pain. TECHNIQUE: 2 views of the hip and a single image of the pelvis. COMPARISON: None. FINDIN GS: Normal femoral head, neck, intertrochanteric region and visualized proximal femur. Normal acetabulum. Normal hip joint. Normal visualized superior and inferior pubic rami and ischial tuberosities. RAD/HIP, UNI W/ Pelvis 2-3 Views IMPRESSION: Within normal limits x-ray examination of the hip. Electronically Signed: Cait Villagran MD 2017 at 10:30 EST Tel , Service support , CC: Peyton Dickens PUBLIC RELATIONS SENIOR ASSOCIATE; No Primary Care Physician [employer]: Signed Family History Unknown Family Member Name Dates Details Maternal Aunt Comments: colon cancer, lung cancer, diabetes Status: Active Maternal Uncle Comments: prostate cancer, diabetes Status: Active Mother Comments: breast cancer, diabetes, asthma Status: Active Social History Name Dates Details Alcohol use: Drinks beer. Comments: a couple daily Status: Active Caffeine use: Carbonated beverages. Comments: 1 daily Status: Active Drug Use: No drug use. Status: Active Tobacco Use: Current every day smoker. Status: Active Smoking Status Name Dates Details Current every day smoker Vital Signs Date Test Result Details :48 Temperature 98 f Comments: Method: Temporal Pulse 108 /min Comments: Pattern: Regular Respiration Rate 16 /min Comments: Pattern: Unlabored O2 SAT 98 % Comments: Room air BP Systolic 124 mm[Hg] Comments: Patient Position: Sitting; Cuff Location: Left Arm; Cuff Size: Standard BP Diastolic 84 mm[Hg] Comments: Patient Position: Sitting; Cuff Location: Left Arm; Cuff Size: Standard Weight 195 lb Height 72 in Body Mass Index Calculated 26.45 kg/m2 Body Surface Area Calculated 2.11 m2 :30 Temperature 98 f Comments: Method: Temporal Pulse 96 /min Comments: Pattern: Regular Respiration Rate 18 /min Comments: Pattern: Unlabored O2 SAT 98 % Comments: Room air Weight 195 lb Height 72 in Body Mass Index Calculated 26.45 kg/m2 Body Surface Area Calculated 2.11 m2 :45 Temperature 98.2 f Comments: Method: Temporal Pulse 82 /min Comments: Pattern: Regular Respiration Rate 17 /min Comments: Pattern: Unlabored O2 SAT 97 % Comments: Room air BP Systolic 126 mm[Hg] Comments: Patient Position: Sitting; Cuff Location: Left Arm; Cuff Size: Standard BP Diastolic 84 mm[Hg] Comments: Patient Position: Sitting; Cuff Location: Left Arm; Cuff Size: Standard Weight 196 lb Height 72 in Body Mass Index Calculated 26.58 kg/m2 Body Surface Area Calculated 2.11 m2 :45 Temperature 98.3 f Comments: Method: Temporal Pulse 122 /min Comments: Pattern: Regular Respiration Rate 16 /min Comments: Pattern: Unlabored O2 SAT 97 % Comments: Room air BP Systolic 140 mm[Hg] Comments: Patient Position: Sitting; Cuff Location: Left Arm; Cuff Size: Standard BP Diastolic 98 mm[Hg] Comments: Patient Position: Sitting; Cuff Location: Left Arm; Cuff Size: Standard Weight 196 lb Height 72 in Body Mass Index Calculated 26.58 kg/m2 Body Surface Area Calculated 2.11 m2 Results Date Description Value Details [id number] MRSA Culture ([id number]) Comments: nose; [facility] [id number] [place], [address] MRSA RESULT Negative (Normal) [id number] Aerobic Bacterial Culture Comments: head lesion; PATIENT NOT FASTINGPERFORMED BY: [facility] Hqpvlo7971 [facility] [id number] Information: HEAD SRC:WO ([id number]) Result 1 NG36 (Normal) Comments: No growth in 36 - 48 hours. Aerobic Bacterial Culture Final report (Normal) [id number] CBC, Platelets & Auto Diff Comments: PATIENT NOT FASTINGPERFORMED BY: [facility] Mylyis1295 [facility] [id number] ([id number]) Immature Grans (Abs) 0.0 {x10E3/uL} (Normal) Range: 0.0-0.1 Immature Granulocytes 0 % (Normal) Baso (Absolute) 0.0 {x10E3/uL} (Normal) Range: 0.0-0.2 Eos (Absolute) 0.3 {x10E3/uL} (Normal) Range: 0.0-0.4 Monocytes(Absolute) 0.4 {x10E3/uL} (Normal) Range: 0.1-0.9 Lymphs (Absolute) 3.3 {x10E3/uL} (Abnormal) Range: 0.7-3.1 Neutrophils (Absolute) 2.8 {x10E3/uL} (Normal) Range: 1.4-7.0 Basos 0 % (Normal) Eos 5 % (Normal) Monocytes 5 % (Normal) Lymphs 49 % (Normal) Neutrophils 41 % (Normal) Platelets 205 {x10E3/uL} (Normal) Range: 150-379 RDW 12.9 % (Normal) Range: 12.3-15.4 MCHC 34.7 g/dL (Normal) Range: 31.5-35.7 MCH 34.7 pg (Abnormal) Range: 26.6-33.0 MCV 100 fL (Abnormal) Range: 79-97 Hematocrit 46.4 % (Normal) Range: 37.5-51.0 Hemoglobin 16.1 g/dL (Normal) Range: 13.0-17.7 RBC 4.64 {x10E6/uL} (Normal) Range: 4.14-5.80 WBC 6.9 {x10E3/uL} (Normal) Range: 3.4-10.8 [id number] C-Reactive Protein ([id number]) Comments: PATIENT NOT FASTINGPERFORMED BY: [facility] [id number] C-Reactive Protein, Quant 1.8 mg/L (Normal) Range: 0.0-4.9 [id number] SED RATE ERYTHROCYTE ([id number]) Comments: PATIENT NOT FASTINGPERFORMED BY: [facility] [id number] Sedimentation Rate-Westergren 7 mm/h (Normal) Range: 0-15 Plan of Care Name Dates Details Instructions BMI 26.0-26.9,adult : Follow up if no improvement or if symptoms worsen Indication: BMI 26.0-26.9,adult 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 : Reviewed Diagnostic Tests Indication: 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 : Reviewed 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 Indication: 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 Current smoker : Eprescribed prescriptions (G8553) Indication: Current smoker Eye swelling, right : Follow up in 1 week Indication: Eye swelling, right BMI 26.0-26.9,adult : Follow up in 4 weeks Indication: BMI 26.0-26.9,adult Elevated sed rate : Reviewed Lab Indication: Elevated sed rate Tachycardia : Reviewed Diagnostic Tests Indication: Tachycardia Rash in adult : Reviewed Diagnostic Tests Indication: Rash in adult Rash in adult : Reviewed Lab Indication: Rash in adult Current smoker : Eprescribed prescriptions (G8553) Indication: Current smoker Elevated hemoglobin : Follow up in 2 days Indication: Elevated hemoglobin Current smoker : Eprescribed prescriptions (G8553) Indication: Current smoker Planned Encounters Medical; Acute Visit - On: 27-Apr-2018 10:30 [facility] Peyton Dickens CNP, CNP, [facility]; 1 Month FU - On: 04-May-2018 11:15 [facility] Peyton Dickens CNP, CNP, [facility] Planned Procedures MAGNETIC RESONANCE IMAGING OF LEFT HIP WITH AND WITHOUT On: 24-Apr-2018 Intent CONTRAST ([id number])By: Chrissie TALLEY JanisSvetlana Dickens CNP [facility] - Hip - LeftBy: Chrissie TALLEY JanisSvetlana Dickens CNP Peyton Mota On: 17-Apr-2018 Intent ELECTROCARDIOGRAM, COMPLETE (ECG) ([id number])By: Chrissie TALLEY [facility] On: 06-Apr-2018 Intent Chrissie TALLEY [facility] Instructions Name Dates Details Current smoker : How to access health information online Indication: Current smoker Current smoker : How to access health information online - Detail Indication: Current smoker Current smoker : Patient Instructions Indication: Current smoker Current smoker : How to access health information online Indication: Current smoker Current smoker : How to access health information online - Detail Indication: Current smoker Current smoker : Patient Instructions Indication: Current smoker Current smoker : How to access health information online Indication: Current smoker Current smoker : How to access health information online - Detail Indication: Current smoker Current smoker : Patient Instructions Indication: Current smoker Encounters Annotation/Addendum On: 24-Apr-2018 14:07 Encounter Diagnosis: Unspecified Diagnosis End: 24-Apr-2018 16:50 [facility] Office Visit On: 24-Apr-2018 10:47 Encounter Reason: Follow up acute care visit - The patient feeling better since last seen., [ADDITIONAL REASON] Hip Problem - Note for Hip problem: went to ER monday and monday for left hi End: 24-Apr-2018 11:47 p pain. muscle relaxers helping but xrays showing calcifi ation or loose body rt fem head. Encounter Diagnosis: Current smoker, BMI 26.0-26.9,adult, 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, Rash in adult [facility] Office Visit On: 17-Apr-2018 11:29 Encounter Reason: Skin Lesions - The last clinic visit was 2 week(s) ago. Symptoms include multiple skin lesions (2 on head that drain and swollen down to R eye --- one lesion on L forearm with swelling down to wrist). L End: 17-Apr-2018 12:24 esion(s) are located on the left arm and right side of the scalp. The patient describes the lesion(s) as draining (and swollen). Note for Skin lesions: New rash top of head and left arm with new arm swelling, [ADDITIONAL REASON] Hip Problem - Note for Hip problem: left hip pain feels like a cold in the hip Encounter Diagnosis: Eye swelling, right, Rash in adult, 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 [facility] Office Visit On: 06-Apr-2018 8:43 Encounter Reason: Follow up acute care visit - The patient feeling better since last seen. 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 General health: feels well with no complaints, has good energy level and is sleeping well. The patient's appetite is normal. Nutrition: appro End: 04-Apr-2018 10:31 priate balanced diet. Exercises 1 days per week. Sleeps on average 8 hours per night. Normal bowel and bladder habits. Safety measures include appropriate use of safety belts and home smoke detectors. T here are no current emotional problems. Note for Physical exam: Went to [facility] Mar 31 for rash on back which was diagnosed as staph infectionor impetigo with dermal reaction. ??A culture was sridhar en per pt. Given Chlorhexidine cloth daily x 5 days, and mupirocin nasal bid x 5 days and Bactrim bid x 5 days Rash started on back when fell asleep with hoodie on. Then back of neck started itching wit h bumps and spread to other body parts Diagnosed in ER with Impetigo with dermal reaction. 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
--- OUTSIDE RECORDS SUMMARY | 2018-06-03 14:56 | XMS RPT_ITS ---
:1980 Author Organization OHIP Support Name Relationship Address Phone [employer] Unavailable [address] + [address] [place] [address] RAE, ABHIJEET/CAN Unavailable [address] [phone] [place] [address] [employer] Unavailable [address] + [address] [place] [address] RAE, ABHIJEET/CAN Unavailable [address] [phone] [place] [address] [employer] Unavailable [address] + [address] [place] [address] RAE, ABHIJEET/CAN Unavailable [address] [phone] [place] [address] [employer] Unavailable [address] + [address] [place] [address] RAE, ABHIJEET/CAN Unavailable [address] [phone] [place] [address] [employer] Unavailable [address] + [address] [place] [address] RAE, ABHIJEET/CAN Unavailable [address] [facility] + [place] [address] [employer] Unavailable [address] + [address] [place] [address] RAE, ABHIJEET/CAN Unavailable [address] [phone] [place] [address] [employer] Unavailable [address] + [address] [place] [address] RAE, ABHIJEET/CAN Unavailable [address] [facility] [place] [address] Care Team Providers Name Role Phone Peyton Dickens Attending Unavailable Ciesa, Peyton Referring Unavailable Ciesa, Peyton Consulting Unavailable Ciesa, Peyton Attending Unavailable Ciesa, Peyton Referring Unavailable Primay Care Physicia, No Primary Care Unavailable Hiram Hardy Attending Unavailable Ciesa, Peyton Primary Care Unavailable Ciesa, Peyton Primary Care Unavailable Gabriele Dela Cruz Attending Unavailable Ciesa, Peyton Attending Unavailable Ciesa, Peyton Referring Unavailable Ciesa, Peyton Primary Care Unavailable Primay Care Physicia, No Primary Care Unavailable Sementi, Maci Admitting Unavailable Sementi, Maci Attending Unavailable Sementi, Maci Referring Unavailable Sementi, Maci Admitting Unavailable Sementi, Maci Referring Unavailable Primay Care Physicia, No Primary Care Unavailable Sementi, Maci Consulting Unavailable Sementi, Maci Attending Unavailable Sementi, Maci Admitting Unavailable Kandace Mcclain NP-C Attending Unavailable Sementi, Maci Referring Unavailable Primay Care Physicia, No Primary Care Unavailable Sementi, Maci Consulting Unavailable PROBLEMS PROBLEMS DATE TYPE CONDITION / CODE ATTENDING STATUS SOURCE 05/21/2018 Unknown M25.552 - Pain in Peyton Dickens left hip / Community M25.552(ICD-10) Hospital Repository 05/21/2018 Unknown M76.10 - Psoas Peyton Dickens tendinitis, Community unspecified hip / Hospital M76.10(ICD-10) Repository 04/17/2018 Unknown R21 - Rash and Peyton Dickens other nonspecific Community skin eruption / Hospital R21(ICD-10) Repository PROCEDURES PROCEDURES No Procedure Records FoundRESULTS RESULTS INITAL EVALUATION (1) Observed: 04/27/2018 Status: F Source: [place] - PT 1:33 PM [facility] REPOSITORY [facility] Physical Therapy [address] [place] [address] Fax REHABILITATION SERVICES INITIAL EVALUATION MR#: [id number] Acct: [id number] Name: MELISSA RAE Rep #: [id number] : 1980 37 From: Kayode Rosa PT, ATC Referring Dr.: Peyton Dickens NP Status: REG RCR Insurance: [facility] SELF PAY INSURANCE Patient's Visit Information MELISSA RAE is a 37 year old M referred to Physical Therapy by Peyton Dickens NP with a diagnosis of L hip pain. Date of Evaluation: 04/27/18 Physical Therapist: Kayode Rosa, PT, ATC - Visit Plan Frequency: 1x/Week Duration: 2 Weeks Plan: L LE stretching (piriformis and IT band), DTR, US, and HEP - Subjective Findings: Pt reports L hip has been sore for 2 weeks. Pt reports the pain had an insidious onset in nature. Pt reports he just woke up one day with the pain. Pt reports for the past 3 days his R hip is starting to get sore. Pt reports he did have xrays which revealed no positive findings. No PMHx. Pt reports he is on muscle relaxers now which are helping some with his pain. Pt reports his pain is located near the greater trochanter of L hip. No tingling or numbness in L LE. Difficulty with sleep secondary to pain. Pt works at [employer] and has been limited secondary to pain. 3/10 pain at rest. 10/10 at worst - Pain L hip Pain Intensity (Out of 10): 3 Pain Intensity Range: 10 - Objective Neuro: B LE sensation is WNL to light touch. B patellar tendon reflex= 2/3. Palpation: Pt is very tender along the greater trochanter. No obvious deformity. ROM: B LE's are equal and WNL. MMT: B LE's are rated at 5/5 throughout with exception to ER= 4/5 and painful. Flexibility: L piriformis muscle is moderately limited at this time. L Tensor is also tight at this time. - Goals Goal 1:: I with HEP in 2-3 visits Goal Time Frame: 2-4 Weeks - Rehabilitation Potential Physical Therapy Diagnosis: L hip pain, weakness, and limited tolerance for work secondary to piriformis syndrome Rehabilitation Potential: Good - Anticipated Interventions Patient/Client Instruction: Educate patient on: Condition, Plan of Care For the Purpose of:: To improve self management Therapeutic Exercise to Include: Body mechanics, Flexibilty training, Active ROM For the Purpose of:: To decrease pain Manual Therapy Techniques to Include: Soft tissue mobilization For the Purpose of:: To decrease pain Ultrasound (thermal/non thermal): Yes For the Purpose of:: To decrease pain Thank you for the opportunity to evaluate your patient. For Medicare and Medicare HMO plans, please review the plan of care and approve it. It will need to be FAXED BACK to us at [phone] for Medicare purposes. For Medicare only, by signing this I certify the plan of care. Please let me know if there are questions or concerns regarding this plan of care. Physician Signature: Date: <Electronically signed by Kayode Rosa PT, ATC> 04/27/18 1333 CC: Peyton Dickens NP [facility] Signed DISCHARGE INSTRUCTION Observed: 04/23/2018 Status: F Source: [place] 6:27 AM [facility] REPOSITORY [facility] Medical Records Department [address] [place] [address] Discharge Instruction 04/23/18 0626 MR#: [id number] Acct: [id number] Name: MELISSA RAE Rep #: [id number] : 1980 37 From: Gabriele Dela Cruz MD PCP: Peyton Dickens NP Status: REG ER ED Disposition - Plan for ED Patient: Chief Complaint: Lower Extremity Injury Instructions: ED Strain Muscle Ext Prescriptions: Cyclobenzaprine [Flexeril] 10 mg PO TID PRN #20 tab PRN Reason: Muscle Spasm Referrals: Peyton Dickens, SHEKHAR-C [Primary Care Provider] - What to do if you have Problems For any increased pain, shortness of breath, bleeding, nausea or vomiting, chest pain, or any unexpected problems, contact your Primary Care Provider. Call [facility] ([phone]) or report to the closest Emergency Room. Call 911 if necessary. 04/23/18 0627 <Electronically signed by Gabriele Dela Cruz MD> Date Gabriele Cubaign Signature (If Indicated): Date CC: Peyton Dickens NP EMERGENCY DEPARTMENT Observed: 04/23/2018 Status: F Source: [place] SUMMARY 6:26 AM [facility] REPOSITORY [facility] Medical Records Department [address] [place] [address] Emergency Department Summary 04/23/18 0623 MR#: [id number] Acct: [id number] Name: MELISSA RAE Rep #: [id number] : 1980 37 From: Gabriele Dela Cruz [...] days ago and was diagnosed with tendinitis. Patient states this is not tendinitis. He states it feels like muscle is tight. He complains of some muscle spasm. No history of trauma or injury. No paresthesias or weakness. He denies any other pain. No fever chest pain shortness of breath abdominal pain vomiting diarrhea. He was prescribed meloxicam which he states is not helping. Physical Examination: Afebrile vitals are unremarkable Heart regular rate and rhythm Lungs are clear Abdomen soft Patient does have lateral left hip and buttock tenderness overlying skin appears normal there is no erythema there is no crepitus there is no fluctuance this is proximal and posterior to the trochanteric bursa I do not think this is trochanteric bursitis Active full range of motion of the hip without pain No lower extremity edema brisk capillary refill with normal sensation Test Results: Left hip x-ray shows a normal left hip there is [...] Disposition: Discharge Impression: 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 This note was generated with [employer] dictation software. It may contain incorrect words, spelling, and punctuation that were not noted in review of the chart prior to signing ED Disposition - Plan for ED Patient: Chief Complaint: Lower Extremity Injury Referrals: Peyton Dickens, STULL HEWER-C [Primary Care Provider] - What to do if you have Problems For any increased pain, shortness of breath, bleeding, nausea or vomiting, chest pain, or any unexpected problems, contact your Primary Care Provider. Call [facility] ([phone]) or report to the closest Emergency Room. Call 911 if necessary. 04/23/18 0626 <Electronically signed by Gabriele Dela Cruz MD> Date Gabriele Dela Cruz MD Cosigner Signature (If Indicated): Date CC: Peyton Dickens NP HIP, UNI W/ PELVIS Observed: 04/23/2018 Status: F Source: [place] 2-3 VIEWS 5:17 AM [facility] REPOSITORY [facility] Imaging Services [address] [place] [address] HIP, UNI W/ Pelvis 2-3 Views MR#: [id number] Acct: [id number] Name: MELISSA RAE Rep #: [id number] : 1980 M 37 From: Estevan Cunha PCP: Peyton Dickens NP Status: DEP ER Study: HIP, UNI W/ Pelvis 2-3 Views Date of Exam: 04/23/18 Exam# [id number] Ordering Dr: Gabriele Dela Cruz MD ADDENDUM by Estevan Cunha on 05/06/18 at 1132 ADDENDUM The report should read: Incidentally noted is an accessory ossicle left hip. As stated in report the 7 mm ovoid density is adjacent to the superior lateral aspect of the right femoral head and is seen on the AP view of the pelvis. This could represent a soft tissue calcification or loose body in the right hip joint. 05/06/18 113 Date cc: Peyton Dickens NP; Gabriele Dela Cruz MD * Signed ADDENDUM by Estevan Cunha on 05/06/18 at 1132 RAD/HIP, UNI W/ Pelvis 2-3 Views IMPRESSION: Soft tissue calcification versus loose body right hip. Normal left hip. Electronically Signed: Estevan Cunha MD at 11:32 EST , Service support , 05/06/18 1138 Date cc: Peyton Dickens NP; Gabriele Dela Cruz MD * Signed STUDY: X-RAY - LEFT HIP, SINGLE VIEW OF THE PELVIS REASON FOR EXAM: Male, 37 years old. Left trochanteric tendinitis. TECHNIQUE: 2 views of the left hip. Single view of the pelvis. COMPARISON: None. FINDINGS: Normal femoral head, neck, intertrochanteric region and visualized proximal femur. Normal acetabulum. Normal hip joint. Incidentally noted is an accessory ossicle less. Normal visualized superior and inferior pubic rami and ischial tuberosities. 7 mm ovoid density adjacent to the superior lateral aspect of the right femoral head. This could represent a soft tissue calcification or loose body in the right hip joint. RAD/HIP, UNI W/ Pelvis 2-3 Views IMPRESSION: Normal x-ray examination of the left hip. Soft tissue calcification versus loose body right hip. Correlate clinically. Electronically Signed: Estevan Cunha MD at 6:02 EST , Service support , CC: Peyton Dickens NP; Gabriele Dela Cruz MD Aerographer: Signed EMERGENCY DEPARTMENT Observed: 04/21/2018 Status: F Source: [place] SUMMARY 8:01 PM [facility] REPOSITORY [facility] Medical Records Department [address] [place] [address] Emergency Department Summary 04/21/181952 MR#: [id number] Acct: [id number] Name: MELISSA RAE Rep #: [id number] : 1980 37 From: Hiram Hardy DO PCP: Peyton Dickens NP Status: REG ER - ER Visit Summary Date of Service: 04/21/18 Chief Complaint: 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 History of Present Illness: The patient is a 37 M who presents with left hip pain that has been getting worse over the past 3 days. Patient denies any trauma or injury. Patient states the pain is over the lateral aspect of the left hip. Patient states pain is worse with weightbearing and ambulation. Patient does admit to some paresthesias over the lateral aspect of the left hip. Patient states the pain is now radiating into the left thigh. Patient denies any fevers or chills. Patient denies any weakness. Physical Examination: Vital signs are stable. Patient is afebrile. Patient is in no acute distress. Musculoskeletal exam reveals tenderness over the lateral aspect [...] was instructed to follow-up with his primary care physician in 5-7 days. Patient understood and was agreeable with the plan. All questions were answered. Disposition: Discharged home Impression: Tendinitis left hip This note was generated with [employer] dictation software. It may contain incorrect words, spelling, and punctuation that were not noted in review of the chart prior to signing ED Disposition - Plan for ED Patient: Disposition: Home or Assisted Living Chief Complaint: Lower Extremity Injury Diagnosis: Tendinitis of trochanteric region of left hip Instructions: ED Sprain Hip Prescriptions: Meloxicam [Mobic] 15 mg PO DAILY #10 tab Referrals: Peyton Dickens, STULL HEWER-C [Primary Care Provider] - What to do if you have Problems For any increased pain, shortness of breath, bleeding, nausea or vomiting, chest pain, or any unexpected problems, contact your Primary Care Provider. Call [facility] ([phone]) or report to the closest Emergency Room. Call 911 if necessary. 04/21/182000 <Electronically signed by Hiram Hardy DO> Date Hiram Hardy DO Cosigner Signature (If Indicated): Date CC: Peyton Page [employer] Collected: 04/17/2018 Status: F Source: [place] DNA BY PCR 3:05 PM [facility] REPOSITORY TYPE CODE TESTS RESULT OUT OF RANGE REFERENCE UNITS LAB L8200.1100 Negative Normal MRSA Negative RESULT Performed By: #### L8200.1000 #### [facility] [address] [place], [address] HIP, UNI W/ PELVIS Observed: 04/17/2018 Status: F Source: [place] 2-3 VIEWS 12:38 PM [facility] REPOSITORY [facility] Imaging Services [address] [place] [address] HIP, UNI W/ Pelvis 2-3 Views MR#: [id number] Acct: [id number] Name: MELISSA RAE Rep #: [id number] : 1980 M 37 From: Cait Villagran MD PCP: Care Physician, No Primary Status: REG CLI Study: HIP, UNI W/ Pelvis 2-3 Views Date of Exam: 04/17/18 Exam# [id number] Ordering Dr: Peyton Dickens STULL HEWER-C STUDY: X-RAY - LEFT HIP REASON FOR EXAM: Male, 37 years old. Pain. TECHNIQUE: 2 views of the hip and a single image of the pelvis. COMPARISON: None. FINDINGS: Normal femoral head, neck, intertrochanteric region and visualized proximal femur. Normal acetabulum. Normal hip joint. Normal visualized superior and inferior pubic rami and ischial tuberosities. RAD/HIP, UNI W/ Pelvis 2-3 Views IMPRESSION: Within normal limits x-ray examination of the hip. Electronically Signed: Cait Villagran MD at 10:30 EST Tel , Service support , CC: Peyton Dickens STULL HEWER; No Primary Care Physician Aerographer: Signed 12 LEAD ELECTROCARDIOGRAM Observed: 04/06/2018 Status: F Source: [place] 9:25 AM [facility] REPOSITORY [facility] Cardiovascular Services [address] [place] [address] 12 Lead EKG 04/01/18 1040 MR#: [id number] Acct: [id number] Name: MELISSA RAE Rep #: [id number] : 1980 37 From: Cornelio Gibson MD Attending Dr: Maci Martinez Status: DIS [place] Ordering Dr: Abhijeet Daly MD Date: 04/01/18 Location: [facility]3 Sex: M C Admitted: 04/01/18 Test Reason : SOB Blood Pressure : / mmHG Vent. Rate : 113 BPM Atrial Rate : 113 BPM P-R Int : 134 ms QRS Dur : 084 ms QT Int : 322 ms P-R-T Axes : 061 052 048 degrees QTc Int : 441 ms Sinus tachycardia Otherwise normal ECG Confirmed by CORNELIO GIBSON MD ([id number]), film or videotape editor DIAMOND KIM ([id number]) on 04/03/2018 4:20:00 PM Referred By: Alhaji Martinez Confirmed By:CORNELIO GIBSON MD 04/03/18 1620 Date Cornelio Gibson MD CC: No Primary Care Physician; Maci Martinez; Abhijeet Daly Signed DISCHARGE SUMMARY Observed: 04/02/2018 Status: F Source: [place] 12:42 PM [facility] Medical Records Department [address] [place] [address] Discharge Summary 04/02/18 1034 MR#: [id number] Acct: [id number] Name: MELISSA RAE Rep #: [id number] : 1980 37 From: Kandace WELLS PCP: Care Physician, No Primary Status: ADM [place] Y Location: [facility]3 [id number] ADDENDUM by RUSSELL Mcclain on 04/02/18 at 1242 Code Visit OBSV E AND M: [id number] Observation care discharge 04/02/18 1242 <Electronically signed by Kandace WELLS> Date Kandace Mcclain cc: RUSSELL Mcclain; No Primary Care Physician * Signed Discharge Date and Diagnosis Date of Admission: 04/01/18 Date of Discharge: 04/02/18 - Primary Discharge Diagnosis 1. Impetigo with dermal reaction 2. Tobacco dependence - Secondary Discharge Diagnosis Chronic Problems Tobacco dependence (Chronic) Hospital Course and Treatment Imaging Results: Diagnostic Data Chest X-Ray 04/01/18 11:15 IMPRESSION: No evidence of acute cardiopulmonary process. Electronically Signed: Jackson DO Saleem at 11:30 EST , Service support , Operations: None Procedures: None Summary of Care Provided: The patient is a 37 year old M admitted 04/01/2018 due to rash. 1. Impetigo with dermal reaction-patient received IV Unasyn during admission. Improvement in overall appearance of lesions. Blood and wound cultures pending. Patient will continue chlorhexidine wipes daily for 5 days and nasal Bactroban twice daily for 5 days. Bactrim 1 tab p.o. twice daily for 5 days. Patient can continue Benadryl 25 mg p.o. 3 times daily as needed for itching. He was instructed not to drive or operate heavy equipment while taking Benadryl. Patient was instructed on handwashing and washing home bedding, towels and clothing in hot water. Follow-up with primary care physician in 1 week. 2. Tobacco dependence-encouraged tobacco cessation. Nicotine replacement patch. General: Alert, Oriented x3, Cooperative, No apparent distress HEENT: Atraumatic, PERRLA, EOMI, Normocephalic Neck: Supple, No JVD, Negative Carotid Bruits Lungs: Clear to auscultation, Normal air movement Cardiovascular: Regular rate, Regular Rhythm, Normal S1, Normal S2, No murmurs Abdomen: Bowel Sounds Present, Soft, Non Tender, Non-Distended Extremities: No clubbing, No cyanosis, No edema, Capillary Refill Less than 3 Seconds Skin: Generalized rash with worsened areas on the neck, right arm and lower back. Honey crust colored lesions as well as bullae with surrounding erythema. Lesions improved. Patient seen and examined prior to discharge. Physical assessment as noted above. Patient stable for discharge home with a follow-up accommodation's as noted above. This patient was seen by RUSSELL Pérez under the supervision of Dr. Martinez. - Physical Exam Vital Signs Temp Pulse Resp BP Pulse Ox 98.0 F 77 16 132/92 H 97 04/02/18 08:11 04/02/18 08:11 04/02/18 08:11 04/02/18 08:11 04/02/18 08:11 Oxygen Delivery Method Room Air Weight: 185 lb 3.013 oz Body Mass Index (BMI) 24.4 Intake and Output for Last 24 Hours Intake Total 645 / 645 Balance 645 / 645 Laboratory Tests Past 24 Hrs WBC 10.8 RBC 4.72 Hgb 16.7 H WBC RBC Hgb Hct WBC RBC Hgb Hct Discharge Diet: No Restrictions Discharge Activity: - - Good handwashing. Wash bedding and clothing at home in hot water. Complete full course of antibiotics. Call your doctor if your incision/area has: Increased Pain/ Swelling, Increased Redness Call your doctor if you observe: Fever of 101 or Higher Home Medications: Medications to take at Discharge Chlorhexidine Gluc 2% Cloth 1 each TOPICAL DAILY 5 Days #5 towelette 04/02/18 DiphenhydrAMINE [Benadryl] 25 mg PO TID PRN PRN #12 capsule 04/02/18 Mupirocin Calcium [Bactroban Nasal] 1 gm NS BID 5 Days #1 oint...g. 04/02/18 Smz/Tmp Ds [Bactrim Ds] 1 tablet PO BID #10 tablet 04/02/18 Following Prescrptions Were Given to Patient: Chlorhexidine Gluc 2% Cloth 1 each TOPICAL DAILY 5 Days #5 towelette DiphenhydrAMINE [Benadryl] 25 mg PO TID PRN PRN #12 capsule PRN Reason: Itching Mupirocin Calcium [Bactroban Nasal] 1 gm NS BID 5 Days #1 oint...g. Smz/Tmp Ds [Bactrim Ds] 1 tablet PO BID #10 tablet Primary Care Physician: Care Physician,No Primary [Primary Care Provider] - Please follow up with your Primary Care Physician in: 1 Week Disposition: Home Minutes spent on discharge:: 35 Patient Condition:: Stable Medical Necessity - Tobacco Use Smoking Status: Current every day smoker Tobacco Use: Cigarettes Meaningful Use Info Meaningful Use Diagnoses (Choose all that apply): None applicable 04/02/18 1046 <Electronically signed by Kandace WELLS> Date Kandace WELLS Cosigner Signature (if applicable): Date CC: STULL HEWERSisi Mcclain; No Primary Care Physician Signed DISCHARGE INSTRUCTION Observed: 04/02/2018 Status: F Source: [place] 10:33 AM [facility] REPOSITORY [facility] Medical Records Department [address] [place] [address] [place] [address] Instructions for Home/Discharge Instructions 04/02/18 1030 MR#: [id number] Acct: [id number] Name: MELISSA RAE Helen Rep #: [id number] : 1980 37 From: Kandace WELLS PCP: Care Physician, No Primary Status: ADM [place] - Discharge Diagnoses Current Active Problems: Current Active and Chronic Problems Tobacco dependence (Chronic) You will use the following diet at home:: No restrictions Discharge Activity: - - Good handwashing. Wash bedding and clothing at home in hot water. Complete full course of antibiotics. Call your doctor if your incision/area has: Increased Pain/ Swelling, Increased Redness Call your doctor if you observe: Fever of 101 or Higher Allergies/Adverse Reactions: Allergies No Known Allergies Allergy (Verified 04/01/18 10:24) Medications to take at Discharge Chlorhexidine Gluc 2% Cloth 1 each TOPICAL DAILY 5 Days #5 towelette 04/02/18 DiphenhydrAMINE [Benadryl] 25 mg PO TID PRN PRN #12 capsule 04/02/18 Mupirocin Calcium [Bactroban Nasal] 1 gm NS BID 5 Days #1 oint...g. 04/02/18 Smz/Tmp Ds [Bactrim Ds] 1 tablet PO BID #10 tablet 04/02/18 The following prescriptions were given: Chlorhexidine Gluc 2% Cloth 1 each TOPICAL DAILY 5 Days #5 towelette DiphenhydrAMINE [Benadryl] 25 mg PO TID PRN PRN #12 capsule PRN Reason: Itching Mupirocin Calcium [Bactroban Nasal] 1 gm NS BID 5 Days #1 oint...g. Smz/Tmp Ds [Bactrim Ds] 1 tablet PO BID #10 tablet Primary Care Physician: Care Physician,No Primary [Primary Care Provider] - Please follow up with your Primary Care Physician in: 1 Week Test Results: Test results from this visit will be discussed in further detail at your follow-up appointment, if applicable. Proposed Discharge Date: 04/02/18 04/02/18 1033 <Electronically signed by Kandace WELLS> Date Kandace WELLS CC: No Primary Care Physician Observed: 04/01/2018 Status: F Source: [place] CULTURE, WOUND 5:06 PM [facility] REPOSITORY Gram Stain Gram Stain No White Blood Cells No organisms seen Wound Culture No growth aerobically. Performed By: #### M100.1400 #### [facility] [address] [place], [address] EMERGENCY DEPARTMENT Observed: 04/01/2018 Status: F Source: [place] SUMMARY 4:49 PM [facility] REPOSITORY [facility] Medical Records Department [address] [place] [address] Emergency Department Summary 04/01/18 1053 MR#: [id number] Acct: [id number] Name: MELISSA RAE Rep #: [id number] : 1980 37 From: Abhijeet Daly MD PCP: Care Physician, No Primary Status: ADM [place] - ER Visit Summary Date of Service: 04/01/18 Chief Complaint: Rash History of Present Illness: The patient is a 37 M presenting for evaluation secondary to a rash. Patient states that about 2 days ago he fell asleep with his hooded sweatshirt on. He woke up with a rash over his left posterior neck and upper shoulder area which he states that he has been putting antibiotic ointment on. He states that just prior to arrival however he broke out in a head to toe rash that initially was extremely itchy, and now was not so much itching. He denies that there is any sort of prodrome associated with this such as bug bite, fever, illness such as nausea vomiting diarrhea abdominal pain cough or sore throat. He denies any new exposures such as closed, foods, pets, detergents. Patient states that he did switch soaps but this was a couple of weeks ago, and nothing recently. He is never had any prior similar episodes in the past. He denies any travel. He denies anybody with any sort of similar skin rashes. He denies any history of injections or drug use. Denies any new sgoi-ehf-fsidrcn remedies. Physical Examination: Vital signs notable for heart rate of 114. Well-nourished male no acute distress. Head normocephalic. No conjunctival pallor or scleral icterus. Mucous membranes are moist, no evidence of lip or tongue swelling oropharynx is clear. Neck was supple. Heart was tachycardic and regular no murmurs. Lung sounds are clear. Abdomen was soft nontender extremities were nontender nonedematous. Skin exam shows evidence of what appears to be healing vesicles on patient's left upper back. There are raised palpable wheals noted on the patient's chest, flanks, and arms. Some of these are rather erythematous, but still blanching especially one on the patient's right AC. Negative Nikolsky sign. Test Results: CBC, CMP, coags, urinalysis, toxicology, lactic acid, ethanol unremarkable. Chest x-ray unremarkable. EKG shows sinus tachycardia with rate of 113 no ischemic changes. Emergency Department Course and Treatment: Patient presented for evaluation secondary to a rash. This was a very abnormal appearing rash, so I performed a workup on the patient which ultimately was found to be negative. Patient was given Benadryl Pepcid Solu-Medrol and a liter of normal saline. Repeat evaluation actually showed the patient's rash to be worsening with involvement of his right elbow, nonblanching of the wheel on the patient's right forearm. And some worsening of the rash diffusely across the patient's rest of his body. This point I am unsure if this is infectious, allergic, rheumatologic, but it is worsening and I do believe that he warrants observation. I discussed this with hospitalist and the patient will be admitted. Disposition: Admission Impression: 1. Worsening rash This note was generated with [employer] dictation software. It may contain incorrect words, spelling, and punctuation that were not noted in review of the chart prior to signing ED Disposition - Plan for ED Patient: Chief Complaint: Allergic Reaction Referrals: Care Physician,No Primary [Primary Care Provider] - What to do if you have Problems For any increased pain, shortness of breath, bleeding, nausea or vomiting, chest pain, or any unexpected problems, contact your Primary Care Provider. Call [facility] ([phone]) or report to the closest Emergency Room. Call 911 if necessary. 04/01/18 1649 <Electronically signed by Abhijeet Daly MD> Date Abhijeet Daly MD Cosigner Signature (If Indicated): Date CC: No Primary Care Physician HISTORY AND PHYSICAL Observed: 04/01/2018 Status: F Source: [place] EXAM 4:23 PM [facility] REPOSITORY [facility] Medical Records Department [address] [place] [address] History and Physical 04/01/18 1430 MR#: [id number] Acct: [id number] Name: MELISSA RAE Rep #: [id number] : 1980 37 From: Kandace Mcclain STULL HEWER-C PCP: Care Physician, No Primary Status: ADM EL[place] Y Location: [place] [id number] ADDENDUM by Maci Martinez on 04/01/18 at 1623 Code Visit This patient was seen in conjunction with Kandace Mcclain NP. I have independently interviewed and examined the patient and reviewed pertinent historical, laboratory and other data. Please refer to history and physical note for details of this patient's presentation, findings and recommendations. I have reviewed Kandace's note and concur fully with documented findings. In brief, patient is a 37YO male admitted with rash. 2 days ago he started with a rash on the Left suprascapular area. He has been applying Neosporin. He denies fevers and denies sweats or chills. He had no pain in he area. Today he woke up with a red raised rash on the R forearm which was very pruritic and he has been scratching. He also developed smaller raised red areas on the trunk and a few on the legs. He was afebrile in the emergency room. White blood cell count is 10.8 with 73.4% neutrophils. Hemoglobin is increased at 16.7 and the MCV is 100.2. CMP is unremarkable with the exception of a mild elevation in transaminases. Sed rate was increased at 16 and the CRP is increased at 4.11. UA was negative. Chest x-ray shows no infiltrates. The itching resolved after Benadryl, Pepcid and Solu-medrol. Physical examination: He has a crusty patch on the left shoulder with roth crusts. There are some satellite lesions on the neck with roth DC. There are also some red raised areas on the trunk with roth DC. On the R flexor surface of the forearm there is a large raised area that is erythematous......this has decreased and become more flat since leaving the ER. Denies Pruritus at this time. Denies sore throat. Denies SOB. Lungs are CTA. Assessment: 1. Impetigo with dermal reaction due to vigorous scratching I have discussed my assessment with Kandace and orders have been written. Unasyn Chlorhexidine and nasal bactroban DC solumedrol Smoking cessation counselling given Continue the Benadryl OBSV E AND M: [id number] Initial observation care L3 04/01/18 1623 <Electronically signed by Alhaji Mratinez DO> Date Alhaji Martinze DO cc: RUSSELL Mcclain; No Primary Care Physician; Maci Martinez * Signed Problem List (1) Tobacco dependence Status: Chronic History of Present Illness Date of Admission: 04/01/18 Chief Complaint: Rash. The patient is a 37 year old M who presents emergency room due to rash which began this morning. Patient reports itching on the back of the neck area which began this morning. He states he applied antibacterial cream with no relief. He states his rash began to appear other places including lower back, right arm and generalized as well. He reports itching has resolved. Denies fever, chills. He lives at home alone. Not on any daily medications. Has not taken any new medications or other drugs. Denies history of similar rash. He denies any medical history. He is a daily smoker and drinks 2 beers per day. Past Medical History Past Medical History (Chronic Problems): Chronic Problems Tobacco dependence (Chronic) Allergies No Known Allergies Allergy (Verified 04/01/18 10:24) Home Medications: Ambulatory Orders Medication Instructions Recorded NK 04/01/18 Surgical History: no surgical history Psychiatric History: No pertinent psych hx Smoking Status: Current every day smoker Tobacco Use: Cigarettes Drugs: None - *Family History Maternal History Items: Diabetes Paternal History Items: Heart Disease Review of Systems Constitutional: Denies: Chills, Fever, Weight Change HEENT: Denies: Head Aches, Sinus Congestion, Sinus Drainage Cardiovascular: Denies: Chest Pain, Palpitations Respiratory: Denies: Cough, Shortness of breath at rest, Sputum production Gastrointestinal: Denies: Abdominal Pain, Nausea, Vomiting Genitourinary: Denies: Dysuria Musculoskeletal: Denies: Joint Pain, Joint Tenderness Skin: Reports: Rash - Generalized, associated itching Neurological: Denies: Numbness, Tingling, Focal weakness Psychiatric: Denies: Anxiety, Depression, Homicidal Ideations, Suicidal Ideations Hematologic/ Lymphatic: Denies: Easy Bruising, Easy Bleeding VTE Information - Inpt Only VTE Present on Admission: No VTE Mechan Device Prophylaxis: None VTE Pharm Prophylaxis ordered?: No Reason prophylaxis not ordered:: Treatment Not Indicated - Physical Exam General: Alert, Oriented x3, Cooperative, No apparent distress HEENT: Atraumatic, PERRLA, EOMI, Normocephalic Neck: Supple, No JVD, Negative Carotid Bruits Lungs: Clear to auscultation, Normal air movement Cardiovascular: Regular rate, Regular Rhythm, Normal S1, Normal S2, No murmurs Abdomen: Bowel Sounds Present, Soft, Non Tender, Non-Distended Extremities: No clubbing, No cyanosis, No edema, Capillary Refill Less than 3 Seconds Skin: - - Generalized rash with worsened areas on the neck, right arm and lower back. Honey crust colored lesions as well as bullae which appear to be exudate filled with surrounding erythema. Vital Signs Temp Pulse Resp BP Pulse Ox 98.4 F 83 18 158/107 H 93 04/01/18 10:24 04/01/18 13:00 04/01/18 13:00 04/01/18 13:00 04/01/18 13:00 Oxygen Delivery Method Room Air Weight: 205 lb Body Mass Index (BMI) 27.0 Laboratory Tests Past 24 Hrs WBC RBC Hgb Hct MCV MCH MCHC RDW RDW Differential Plt Count MPV WBC RBC Hgb Hct MCV MCH MCHC RDW RDW Differential Plt Count MPV Immature Gran % (Auto) Assessment/Plan 1. Generalized rash, high suspicion for bullous impetigo based on appearance with associated erythema nodosum-obtain culture if bullae area opens. Begin Bactrim DS 1 tab p.o. twice daily for 5 days given extent of lesions. Isolation precautions. Continue benadryl for itching. 2. Tobacco dependence-encouraged tobacco cessation. Nicotine replacement patch. DVT prophylaxis-not indicated. Encourage early ambulation. This patient was seen by RUSSELL Pérez under the supervision of Dr. Martinez. 04/01/18 1528 <Electronically signed by Kandace WELLS> Date Kandace WELLS 04/01/18 1603<Electronically signed by Alhaji Martinez DO> Cosigner Signature: Date (if applicable) Alhaji Martinez DO CC: RUSSELL Mcclain; No Primary Care Physician; Maci Martinez Signed URINE DRUG SCREEN Collected: 04/01/2018 Status: F Source: [place] (VISTA) 11:55 AM [facility] REPOSITORY Order Comment: Order Date: 04/01/18 TYPE CODE TESTS RESULT OUT OF RANGE REFERENCE UNITS LAB L505.0075 TO BE Normal CONFIRMED Result Comment: CONFIRMATORY TESTING FOR ALL POSITIVE URINE DRUG SCREEN RESULTS WILL ONLY BE SENT OUT UPON PHYSICIAN ORDER. VISTA Urine Drug Screen methods provide only preliminary analytical test results. A more specific alternate chemical method must be used in order to obtain a confirmed analytical result. Gas chromatography/mass spectrometery (GC/MS) is the preferred confirmatory method. Clinical consideration and professional judgement should be applied to any drug of abuse test result, particularly when preliminary positive results are used. URINE TCA TESTING MUST BE ORDERED SEPARATELY. USE TEST MNEMONIC: [facility] LAB L505.5005 VISTA UDS PH 5 Normal LAB L505.5015 <1000 ng/mL AMPHETAMINES Normal NEGATIVE LAB L505.5025 < 200 ng/mL BARBITIURATES Normal NEGATIVE LAB L505.5035 < 200 ng/mL BENZODIAZIPINE Normal NEGATIVE LAB L505.5045 < 300 ng/mL COCAINE Normal NEGATIVE LAB L505.5055 < 500 ng/mL ECSTACY Normal NEGATIVE LAB L505.5065 < 300 ng/mL METHADONE Normal NEGATIVE LAB L505.5075 < 300 ng/mL OPIATES Normal NEGATIVE LAB L505.5085 < 25 ng/mL PCP Normal NEGATIVE LAB L505.5095 < 50 ng/mL THC Normal NEGATIVE Performed By: #### L505.5000 #### [facility] [address] [place], [address] URINALYSIS, COMPLETE Collected: 04/01/2018 Status: F Source: [place] 11:55 AM [facility] REPOSITORY Order Comment: Order Date: 04/01/18 How was Urine Obtained? CLEAN CATCH TYPE CODE TESTS RESULT OUT OF RANGE REFERENCE UNITS LAB L400.3000 Yellow COLOR Normal Yellow LAB L400.3050 Clear Normal CLARITY Sl. Cloudy LAB L400.3200 Normal mg/dl Normal GLUCOSE, UR Normal LAB L400.3300 Negative mg/dL Normal BILIRUBIN URINE Negative LAB L400.3400 Negative mg/dl Normal KETONE UR Negative LAB L400.3465 1.002-1.030 Normal SP.GR. DIPSTX 1.010 LAB L400.3550 5.0 - 8.0 pH UR Normal 6.0 LAB L400.3600 Negative mg/dl PROT Normal DIPSTX Negative LAB L400.3700 Normal mg/dl Normal UROBILI Normal LAB L400.3750 Negative Normal NITRITE UR Negative LAB L400.3780 Negative /ul Normal OCCULT BLOOD-UR Negative LAB L400.3800 Negative /ul LEUK Normal ESTERASE Negative LAB L400.4050 0-5 /hpf WBC 0 Normal SEEN LAB L400.4100 0-5 /hpf 0 Normal RBC-UA SEEN LAB L400.4150 0-5 /hpf SQUAM 0 Normal EPI SEEN LAB L400.4300 None Seen /hpf Normal BACTERIA RARE LAB L400.4350 <or=2+ /hpf 0 Normal MUCUS, URINE SEEN Performed By: #### L400.0001 #### [facility] [address] [place], [address] Observed: 04/01/2018 Status: F Source: [place] CULTURE, BLOOD (WB) 11:55 AM [facility] REPOSITORY BC No growth in 5 days. Performed By: #### M200.1000 #### [facility] [place], [address] LACTIC ACID Collected: 04/01/2018 Status: F Source: [place] 10:55 AM [facility] REPOSITORY Order Comment: Yes/No query for Sepsis Lactate Rule Y TYPE CODE TESTS RESULT OUT OF RANGE REFERENCE UNITS LAB L503.6005 0.4-2.0 mmol/L Normal LACTIC ACID 1.4 Performed By: #### L503.6005 #### [facility] [address] [place] [address], [address] ALCOHOL, BLOOD Collected: 04/01/2018 Status: F Source: [place] (MEDICAL)-SERUM 10:55 AM [facility] REPOSITORY TYPE CODE TESTS RESULT OUT OF RANGE REFERENCE UNITS LAB L501.9100 mg/dL Normal SERUM < 3.0 ETOH Result Comment: The serum:whole blood ethanol ratio is approximately 1.14 and varies slightly with hematocrit. Medical Alcohol reference interval and critical value in non-tolerant individuals; 50 - 100 Impairment 100 Intoxication 100 - 250 Severe Poisoning 250 - 400 Deep/possible fatal coma Performed By: #### L501.9100 #### [facility] [address] [place], [address] Observed: 04/01/2018 Status: F Source: [place] CULTURE, BLOOD (WB) 10:55 AM [facility] REPOSITORY BC No growth in 5 days. Performed By: #### M200.1000 #### [facility] [address] [place], [address] CHEST PA AND LATERAL Observed: 04/01/2018 Status: F Source: [place] 10:40 AM [facility] REPOSITORY [facility] Imaging Services [address] [place] [address] Chest PA and Lateral MR#: [id number] Acct: [id number] Name: MELISSA RAE Rep #: [id number] : 1980 M 37 From: Jackson Monge DO PCP: Care Physician, No Primary Status: PRE ER Study: Chest PA and Lateral Date of Exam: 04/01/18 Exam# [id number] Ordering Dr: Abhijeet Daly MD STUDY: X-RAY CHEST REASON FOR EXAM: Male, 37 years old. Allergic reaction. TECHNIQUE: PA and lateral views of the chest. COMPARISON: None. FINDINGS: The lungs are clear and expanded. There is no demonstrated pleural abnormality. Normal size heart. Normal mediastinum and yazan. Normal visualized pulmonary arteries. Normal visualized aortic arch and descending thoracic aorta. Normal visualized thoracic spine. Normal visualized ribs, clavicles, and shoulders. There is no demonstrated abnormality of the visualized soft tissue structures of the upper abdomen. RAD/Chest PA and Lateral IMPRESSION: No evidence of acute cardiopulmonary process. Electronically Signed: Jackson Monge DO at 11:30 EST , Service support , CC: No Primary Care Physician; Abhijeet Daly Aerographer: Signed CBC W/DIFF, AUTOMATED Collected: 04/01/2018 Status: F Source: [place] 10:33 AM [facility] REPOSITORY TYPE CODE TESTS RESULT OUT OF RANGE REFERENCE UNITS LAB L100.1000 4.4-11.0 K/mm3 Normal WBC 10.8 LAB L100.1200 4.6-6.2 M/mm3 Normal RBC 4.72 LAB L100.1300 13.0-16.5 g/dl High HGB 16.7 LAB L100.1400 40-54 % Normal HCT 47.3 LAB L100.1500 80-94 fL High MCV 100.2 LAB L100.1600 27.0-32.0 pg High MCH 35.4 LAB L100.1700 32-36 g/gl Normal MCHC 35.3 LAB L100.1810 11.6-14.6 % Normal RDW CV 12.1 LAB L100.1820 35.1-43.9 fl High RDW SD 44.4 LAB L100.1900 150-450 K/mm3 Normal PLT 169 LAB L100.2000 6.2-12.0 fl Normal MPV 9.2 LAB L100.2100 47-70 % High NEUT% 73.4 LAB L100.2200 19-41 % Low LY% 18.9 LAB L100.2300 0-10 % Normal MONO% 4.1 LAB L100.2400 0-5 % Normal EO% 3.0 LAB L100.2500 0-1 % Normal BASO% 0.2 LAB L100.2550 0.0-0.9 % Normal IM GRAN % 0.400 Result Comment: IG% - Immature Granulocytes (promyelocytes, myelocytes and metamyelocytes) > 1% indicates that a LEFT SHIFT is Present. LAB L100.2620 2.0-7.7 X10 3/uL High Absolute Neut 7.9 LAB L100.2720 0.83-4.51 X10 3/ul Normal Absolute Lymph 2.04 Performed By: #### L100.0100 #### [facility] [address] [place], [address] PROTHROMBIN TIME W/INR Collected: 04/01/2018 Status: F Source: [place] 10:33 AM [facility] REPOSITORY TYPE CODE TESTS RESULT OUT OF RANGE REFERENCE UNITS LAB L300.4150 11.7-14.9 SECONDS Normal PROTIME 12.7 LAB L300.4200 Normal INR 1.0 Performed By: #### L300.3900, L300.4310 #### [facility] [address] [place], [address] PARTIAL THROMBOPLAST Collected: 04/01/2018 Status: F Source: [place] TIME 10:33 AM [facility] REPOSITORY TYPE CODE TESTS RESULT OUT OF REFERENCE UNITS RANGE LAB L300.4310 24.1-36.2 Seconds Low PTT 23.0 Performed By: #### L300.3900, L300.4310 #### [facility] [address] [place], [address] COMPREHENSIVE METABOLIC Collected: 04/01/2018 Status: F Source: [place] PROFIL 10:33 AM [facility] REPOSITORY TYPE CODE TESTS RESULT OUT OF RANGE REFERENCE UNITS LAB L501.0100 74-106 mg/dL Normal GLU 105 Result Comment: Fasting Glucose result from 100 to 125 mg/dL suggests IMPAIRED HOMEOSTASIS per A.D.A. criteria. Please note revised GLUCOSE reference range effective 2017. LAB L501.1000 7-18 mg/dL Normal BUN 9 LAB L501.1100 0.70-1.30 mg/dL Normal CREAT,SERUM 1.00 Result Comment: The validity of the calculated GFR AND GFRAA in patients over 70 years has not been determined. Clinical correlation is essential. LAB L501.1110 >60 mL/min Normal EST GFR 89 Result Comment: Non- GFR Calc LAB L501.1115 >60 mL/min Normal EST GFR - AA 107 Result Comment: GFR Calc LAB L501.1255 ml/min Normal Estimated CRCL 113.19 LAB L501.1300 10-20 RATIO Low BUN/CRE 9.0 LAB L501.1500 6.4-8. g/dL 2 T PROT Normal 8.1 LAB L501.1800 3.2-5. g/dL 0 ALB Normal 3.9 LAB L501.1950 2.2-4. g/dL 2 GLOB Normal 4.2 LAB L501.2000 0.9-2. RATIO 4 A/G Normal 0.9 LAB L501.2200 8.5-10 mg/dL .1 CA Normal 9.0 LAB L501.4100 15-37 U/L High AST 60 LAB L501.4305 45-117 U/L ALK P Normal 72 LAB L501.4405 16-61 U/L High ALT 87 LAB L501.4600 0.20-1 mg/dL .00 T BILI Normal 0.90 LAB L501.5300 136-14 mmol/L 5 NA Normal 138 LAB L501.5600 3.5-5. mmol/L 1 K Normal 3.6 LAB L501.5900 98-107 mmol/L CL Normal 107 LAB L501.6100 21.0-3 mmol/L 2.0 CO2 Normal 23.0 LAB L501.6200 5-15 GAP Normal 8 Performed By: #### L500.4050 #### [facility] [address] [facility] [id number] ERYTHROCYTE SED RATE Collected: 04/01/2018 Status: F Source: [place] 10:33 AM [facility] REPOSITORY Order Comment: Comments: please add on to ER labs if possible TYPE CODE TESTS RESULT OUT OF RANGE REFERENCE UNITS LAB L102.0000 0-15 mm/hr High SED RATE 16 Performed By: #### L101.9900 #### [facility] [address] [facility] [id number] CRP Collected: 04/01/2018 Status: F Source: [place] 10:33 [facility] REPOSITORY Order Comment: Comments: please add on to ER labs if possible TYPE CODE TESTS RESULT OUT OF RANGE REFERENCE UNITS LAB L501.6710 0.0-3.0 mg/L High 4.11 C-REACTIVE PROT Result Comment: C-Reactive Protein (CRP) provides useful information for the diagnosis, therapy and monitoring of inflammatory processes and associated diseases. For the evaluation of Relative Risk for Cardiovascular Disease, a High Sensitivity CRP (HSCRP) should be ordered. Performed By: #### L501.6710 #### [facility] [address] [facility] [place], [place], [address] ALLERGIES ALLERGIES DATE TYPE / CODE NAME / CODE REACTION SEVERITY SOURCE 04/23/2018 Drug No Known Unknown [facility] Allergy/4160 Allergies/F00 [facility] 51335(SNOMED 6402253(RXNOR Repository CT) M) ENCOUNTERS ENCOUNTERS ADMIT/DISCHARGE ACCOUNT ADMITTING ENCOUNTER LOCATION SOURCE NUMBER CLASS 05/10/2018 [id number] Ambulatory [place] 3 [facility] ing:PT Repository 05/04/2018 [id number] Ambulatory Building:[facility] [place] Practices Repository 04/23/2018/ [id number] Emergency [place] 8 4 [facility] ing:ED Repository 04/21/2018/ [id number] Emergency [place] 8 6 [facility] ing:ED Repository 04/17/2018 [id number] Ambulatory [place] Michael 4 [facility] ing:HPRAD Repository 04/01/2018/ [id number] [place], Ambulatory Michael Michael 8 7 [facility] ing:VU9Vtay: Repository UQ501Sol: 1 04/01/2018 [id number] [place], Ambulatory BMSBuilding:B Michael 5 [facility]i [facility] Repository 04/01/2018 [id number] [place], Ambulatory BMSBuilding:B Michael 8 [facility] Repository PAYERS PAYERS ENCOUNTER GUARANTOR PAYER SUBSCRIBER SOURCE 05/10/2018 MELISSA [place] [id number] Insurance:MEDICAL BOOTHDOB: [facility] [id number] Number: Repository [place], [place] [id number]: (330) Date:1274-63-61YZ [phone] () [address] [address]NV: 05/10/2018 Secondary NOT GIVENUNK Michael Insurance:SELF PAY [facility] Number: Effective Repository Date:2018-04-27 05/04/2018 Melissa VerdinB: Primary Melissa VerdinB: [facility] Practices Insurance:Medical [id number] Repository [address] Number: [place], [place] [id number] CHARITY Meyer [address]Sjq: (330) Date:3100-72-43Mtaj [address]Nqp: Name:[facility] [phone] () ()Tel: [phone] [address] [place] [address] [phone] () [id number]: 04/23/2018 MELISSA Cervantes Primary MELISSA Rodriguez [id number] Insurance:MEDICAL BOOTHDOB: [facility] [id number]-[facility] Centerb Number: Repository charity MEYER [id number]: (330) Date:0201-47-43DU [phone] () [address] [place] [phone]: 04/23/2018 Secondary NOT GIVENUNK [place] Insurance:SELF PAY [facility] Number: Effective Repository Date:2018-04-23 04/21/2018 MELISSA Cervantes Primary MELISSA Rodriguez [id number] Insurance:MEDICAL BOOTHDOB: [facility] [id number]-[facility] Centerb Number: Repository charity MEYER [id number]: (330) Date:4150-96-50UF [phone] () [address] [place] [phone]: 04/21/2018 Secondary NOT GIVENUNK [place] Insurance:SELF PAY [facility] Number: Effective Repository Date:2018-04-21 04/17/2018 MELISSA Cervantes Primary MELISSA [place] [id number] Insurance:MEDICAL BOOTHDOB: [facility] [id number]-Northern Navajo Medical Centerb Number: Repository charity MEYER [id number]: (330) Date:3754-72-15CQ [phone] () [address] [place] [phone]: 04/17/2018 Secondary NOT GIVENUNK [place] Insurance:SELF PAY [facility] Number: Effective Repository Date:2018-04-17 04/01/2018 MELISSA Cervantes Primary MELISSA Cervantes [place] [id number] Insurance:MEDICAL BOOTHDOB: [facility] [id number]-Northern [facility]ajo Medical Centerb Number: Repository charity MEYER [id number]: (330) Date:6927-95-77LA [phone] () [address] [phone]: 04/01/2018 Secondary NOT GIVENUNK Michael Insurance:SELF PAY [facility] Number: Effective Repository Date:2018-04-01 04/01/2018 MELISSA Cervantes Primary MELISSA Cervantes Michael [id number] Insurance:MEDICAL BOOTHDOB: [facility] [id number]-Northern [facility]ajo Medical Centerb Number: Repository [place] [id number]: (330) Date:5446-68-80FE [phone] () [place] [phone]: 04/01/2018 Secondary NOT GIVENUNK [place] Insurance:SELF PAY [facility] Number: Effective Repository Date:2018-04-01 04/01/2018 MELISSA Cervantes Primary MELISSA Rodriguez [id number] Insurance:MEDICAL BOOTHDOB: [id number] Number: Repository [place] [id number]: (330) Date:1031-80-07BV [phone] () [address] [place], [place] [address]WP: 04/01/2018 Secondary NOT GIVENUNK [place] Insurance:SELF PAY [facility] Number: Effective Repository Date:2018-04-01
== END ==
PROVIDERS: Referring Provider Nurse Practitioner; Visit Provider Nurse Practitioner
DX: R21 Rash and other nonspecific skin eruption (principal)
CPT/HCPCS: 73502; 87641

== ENCOUNTER 2018-04-21 18:58 | Emergency (ER) | payer OTHER, SELFPAY ==
[2018-04-01 14:29] VITALS: BMI 24.4
[2018-04-21 18:59] VITALS: BP 144/104; PULSE 121; RESP 20; TEMP 36.4; O2SAT 100; BMI 25.4
--- NOTE | 2018-04-21 19:53 | ED.VISSUMM ---
- ER Visit Summary Date of Service: 04/21/18 Chief Complaint: 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 History of Present Illness: The patient is a 37 M who presents with left hip pain that has been getting worse over the past 3 days. Patient denies any trauma or injury. Patient states the pain is over the lateral aspect of the left hip. Patient states pain is worse with weightbearing and ambulation. Patient does admit to some paresthesias over the lateral aspect of the left hip. Patient states the pain is now radiating into the left thigh. Patient denies any fevers or chills. Patient denies any weakness. Physical Examination: Vital signs are stable. Patient is afebrile. Patient is in no acute distress. Musculoskeletal exam reveals tenderness over the lateral aspect of the left hip just posterior to the greater trochanter at the insertion of the piriformis muscle. There is no bony crepitance or step-off. There is good range of motion. There is no laxity appreciated. There is no clicking or popping. Strength is 5/5 bilaterally. There are no sensory deficits noted. The remaining physical exam is within normal limits. Emergency Department Course and Treatment: Patient was given a prescription for meloxicam. Patient was instructed to use ice to the area. Patient was instructed to follow-up with his primary care physician in 5-7 days. Patient understood and was agreeable with the plan. All questions were answered. Disposition: Discharged home Impression: Tendinitis left hip This note was generated with [employer] dictation software. It may contain incorrect words, spelling, and punctuation that were not noted in review of the chart prior to signing ED Disposition - Plan for ED Patient: Disposition: Home or Assisted Living Chief Complaint: Lower Extremity Injury Diagnosis: Tendinitis of trochanteric region of left hip Instructions: ED Sprain Hip Prescriptions: Meloxicam [Mobic] 15 mg PO DAILY #10 tab Referrals: Peyton Dickens NP-C [Primary Care Provider] -
--- NOTE | 2018-04-21 19:57 | ED.DCSUM_ITS ---
- ER Visit Summary Date of Service: 04/21/18 Chief Complaint: 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 History of Present Illness: The patient is a 37 M who presents with left hip pain that has been getting worse over the past 3 days. Patient denies any trauma or injury. Patient states the pain is over the lateral aspect of the lef t hip. Patient states pain is worse with weightbearing and ambulation. Patient does admit to some paresthesias over the lateral aspect of the left hip. Patient states the pain is now radiating into the left thigh. Patient denies any fevers or chills. Patient denies any weakness. Physical Examination: Vital signs are stable. Patient is afebrile. Patient is in no acute distress. Musculoskeletal exam reveals tenderness over the lateral aspect of the left hip just posterior to the greater trochanter at the insertion of the piriformis muscle. There is no bony crepitance or step-off. There is good range of motion. There is no laxity appreciated. There is no clicking or popping. Strength is 5/5 bilaterally. There are no sensory deficits noted. The remaining physical exam is within normal limits. Emergency Department Course and Treatment: Patient was given a prescription for meloxicam. Patient was instructed to use ice to the area. Patient was instructed to follow-up with his primary care physician in 5-7 days. Patient understood and was agreeable with the plan. All questions were answered. Disposition: Discharged home Impression: Tendinitis left hip This note was generated with [employer] dictation software. It may contain incorrect words, spelling, and punctuation that were not noted in review of the chart prior to signing ED Disposition - Plan for ED Patient: Disposition: Home or Assisted Living Chief Complaint: Lower Extremity Injury Diagnosis: Tendinitis of trochanteric region of left hip Instructions: ED Sprain Hip Prescriptions: Meloxicam [Mobic] 15 mg PO DAILY #10 tab Referrals: Peyton Dickens NP-C [Primary Care Provider] -
[2018-04-21 20:36] VITALS: BP 132/100; PULSE 76; RESP 17
--- OUTSIDE RECORDS SUMMARY | 2018-07-25 12:25 | XMS RPT_ITS ---
:1980 Author Organization OHIP Support Name Relationship Address Phone [employer] Unavailable [address] + [address] [place] [address] RAE, ABHIJEET/CAN Unavailable [address] [phone] [place] [address] [employer] Unavailable [address] + [address] [place] [address] RAE, ABHIJEET/CAN Unavailable [address] [phone] [place] [address] [employer] Unavailable [address] + [address] [place] [address] RAE, ABHIJEET/CAN Unavailable [address] [phone] [place] [address] [employer] Unavailable [address] + [address] [place] [address] RAE, ABHIJEET/CAN Unavailable [address] [phone] [place] [address] [employer] Unavailable [address] + [address] [place] [address] RAE, ABHIJEET/CAN Unavailable [address] [facility] [place] [address] [employer] Unavailable [address] + [address] [place] [address] RAE, ABHIJEET/CAN Unavailable [address] [phone] [place] [address] [employer] Unavailable [address] + [address] [place] [address] RAE, ABHIJEET/CAN Unavailable [address] [facility] + [place] [address] Care Team Providers Name Role Phone Peyton Dickens Attending Unavailable Ciesa, Peyton Referring Unavailable Ciesa, Peyton Consulting Unavailable Ciesa, Peyton Attending Unavailable Ciesa, Peyton Referring Unavailable Primay Care Physicia, No Primary Care Unavailable Hiram Hardy Attending Unavailable Ciesa, Peyton Primary Care Unavailable Primay Care Physicia, No Primary Care Unavailable Sementi, Maci Admitting Unavailable Sementi, Maci Attending Unavailable Sementi, Maci Referring Unavailable Sementi, Maci Admitting Unavailable Sementi, Maci Referring Unavailable Primay Care Physicia, No Primary Care Unavailable Sementi, Maci Consulting Unavailable Sementi, Maci Attending Unavailable Ciesa, Peyton Primary Care Unavailable Jose De JesusGabriele wilson Attending Unavailable Ciesa, Peyton Attending Unavailable Ciesa, Peyton Referring Unavailable Ciesa, Peyton Primary Care Unavailable Sementi, Maci Admitting Unavailable Kandace Mcclain [...] F Source: [place] - PT 1:33 PM [facility] REPOSITORY [facility] Physical Therapy [address] [place] [address] Fax REHABILITATION SERVICES INITIAL EVALUATION MR#: [id number] Acct: [id number] Name: MELISSA RAE Rep #: [id number] : 1980 37 From: Kayode Rosa PT, ATC Referring Dr.: Peyton Dickens NP Status: REG RCR Insurance: [facility] SELF PAY INSURANCE Patient's Visit Information [...] sleep secondary to pain. Pt works at [employer] and has been limited secondary to pain. [...] to be FAXED BACK to us at [phone] for Medicare purposes. For Medicare only, by signing this I certify the plan of care. Please let me know if there are questions or concerns regarding this plan of care. Physician Signature: Date: <Electronically signed by Kayode Rosa PT, ATC> 04/27/18 1333 CC: Peyton Dickens NP [facility] Signed DISCHARGE INSTRUCTION Observed: 04/23/2018 Status: F Source: [place] 6:27 AM [facility] REPOSITORY [facility] Medical Records Department [address] [place] [address] Discharge Instruction 04/23/18 0626 MR#: [id number] Acct: [id number] Name: MELISSA RAE Rep #: [id number] : 1980 37 From: Gabriele Dela Cruz [...] your Primary Care Provider. Call [facility] ([phone]) or report to the closest Emergency Room. Call 911 if necessary. 04/23/18 0627 <Electronically signed by Gabriele Dela Cruz MD> Date Gabriele Cubaign Signature (If Indicated): Date CC: Peyton Dickens NP EMERGENCY DEPARTMENT Observed: 04/23/2018 Status: F Source: [place] SUMMARY 6:26 AM [facility] REPOSITORY [facility] Medical Records Department [address] [place] [address] Emergency Department Summary 04/23/18 0623 MR#: [id number] Acct: [id number] Name: MELISSA RAE Rep #: [id number] : 1980 37 From: Gabriele Dela Cruz [...] hip pain This note was generated with [employer] dictation software. It may contain incorrect words, spelling, and punctuation that were not noted in review of the chart prior to signing ED Disposition - Plan for ED Patient: Chief Complaint: Lower Extremity Injury Referrals: Peyton Dickens, FREIGHT BROKER-C [Primary Care Provider] - What to do if you have Problems For any increased pain, shortness of breath, bleeding, nausea or vomiting, chest pain, or any unexpected problems, contact your Primary Care Provider. Call [email or web address] Registry ([phone]) or report to the closest Emergency Room. Call 911 if necessary. 04/23/18 0626 <Electronically signed by Gabriele Dela Cruz MD> Date Gabriele Dela Cruz MD Cosigner Signature (If Indicated): Date CC: Peyton Dickens NP HIP, UNI W/ PELVIS Observed: 04/23/2018 Status: F Source: [place] 2-3 VIEWS 5:17 AM [facility] REPOSITORY [facility] Imaging Services [address] [place] [address] HIP, UNI W/ Pelvis 2-3 Views MR#: [id number] Acct: [id number] Name: MELISSA RAE Rep #: [id number] : 1980 M 37 From: Estevan Cunha PCP: Peyton Dickens NP Status: DEP ER Study: HIP, UNI W/ Pelvis 2-3 Views Date of Exam: 04/23/18 Exam# [id number] Ordering Dr: Gabriele Dela Cruz MD ADDENDUM [...] Peyton Dickens NP; Gabriele Dela Cruz MD Family Resource Management Specialist: Signed EMERGENCY DEPARTMENT Observed: 04/21/2018 Status: F Source: CAPT[place]A SUMMARY 8:01 PM [facility] REPOSITORY [facility] Medical Records Department [address] [place] [address] Emergency Department Summary 04/21/181952 MR#: [id number] Acct: [id number] Name: MELISSA RAE Rep #: [id number] : 1980 37 From: Hiram Hardy DO [...] left hip This note was generated with [employer] dictation software. It may contain incorrect words, spelling, and punctuation that were not noted in review of the chart prior to signing ED Disposition - Plan for ED Patient: Disposition: Home or Assisted Living Chief Complaint: Lower Extremity Injury Diagnosis: Tendinitis of trochanteric region of left hip Instructions: ED Sprain Hip Prescriptions: Meloxicam [Mobic] 15 mg PO DAILY #10 tab Referrals: Peyton Dickens, FREIGHT BROKER-C [Primary Care Provider] - What to do if you have Problems For any increased pain, shortness of breath, bleeding, nausea or vomiting, chest pain, or any unexpected problems, contact your Primary Care Provider. Call [facility] ([phone]) or report to the closest Emergency Room. Call 911 if necessary. 04/21/182000 <Electronically signed by Hiram Hardy DO> Date Hiram Hardy DO Cosigner Signature (If Indicated): Date CC: Peyton Page [employer] Collected: 04/17/2018 Status: F Source: [place] DNA BY PCR 3:05 PM [facility] REPOSITORY TYPE CODE TESTS RESULT OUT OF RANGE REFERENCE UNITS LAB L8200.1100 Negative Normal MRSA Negative RESULT Performed By: #### L8200.1000 #### [facility] [address] [place], [address] HIP, UNI W/ PELVIS Observed: 04/17/2018 Status: F Source: [place] 2-3 VIEWS 12:38 PM [facility] REPOSITORY [facility] Imaging Services [address] [place] [address] HIP, UNI W/ Pelvis 2-3 Views MR#: [id number] Acct: [id number] Name: MELISSA RAE Rep #: [id number] : 1980 M 37 From: Cait Villagran MD PCP: Care Physician, No Primary Status: REG CLI Study: HIP, UNI W/ Pelvis 2-3 Views Date of Exam: 04/17/18 Exam# [id number] Ordering Dr: Peyton Dickens FREIGHT BROKER-C STUDY: X-RAY - LEFT HIP REASON FOR [...] , Service support , CC: Peyton Dickens FREIGHT BROKER; No Primary Care Physician Family Resource Management Specialist: Signed 12 LEAD ELECTROCARDIOGRAM Observed: 04/06/2018 Status: F Source: [place] 9:25 AM [facility] REPOSITORY [facility] Cardiovascular Services [address] [place] [address] 12 Lead EKG 04/01/18 1040 MR#: [id number] Acct: [id number] Name: MELISSA RAE Rep #: [id number] : 1980 37 From: Cornelio Gibson MD [...] ECG Confirmed by CORNELIO GIBSON MD ([id number]), video tape editor DIAMOND KIM ([id number]) on 04/03/2018 4:20:00 PM Referred By: Alhaji Martinez Confirmed By:CORNELIO GIBSON MD 04/03/18 1620 Date Cornelio Gibson MD CC: No Primary Care Physician; Maci Martinez; Abhijeet Daly Signed DISCHARGE SUMMARY Observed: 04/02/2018 Status: F Source: CAPT[place]A 12:42 PM [facility] Medical Records Department [address] [place] [address] Discharge Summary 04/02/18 1034 MR#: [id number] Acct: [id number] Name: MELISSA RAE Rep #: [id number] : 1980 37 From: Kandace WELLS PCP: Care Physician, No Primary Status: ADM EL[place] Y Location: MS3 [id number] ADDENDUM by RUSSELL Mcclain on 04/02/18 at 1242 Code Visit OBSV E AND M: 43170 Observation care discharge 04/02/18 1242 <Electronically signed [...] <Electronically signed by Kandace WELLS> Date Kandace WLELS Cosigner Signature (if applicable): Date CC: FREIGHT BROKERSisi Mcclain; No Primary Care Physician Signed DISCHARGE INSTRUCTION Observed: 04/02/2018 Status: F Source: [place] 10:33 AM [facility] REPOSITORY [facility] Medical Records Department [address] [place] [address] [place] [address] Instructions for Home/Discharge Instructions 04/02/18 1030 MR#: [id number] Acct: [id number] Name: MELISSA RAE Helne Rep #: [id number] : 1980 37 From: Kandace WELLS PCP: [...] Care Physician Observed: 04/01/2018 Status: F Source: [place] CULTURE, WOUND 5:06 PM [facility] REPOSITORY Gram Stain Gram Stain No White Blood Cells No organisms seen Wound Culture No growth aerobically. Performed By: #### M100.1400 #### [facility] [address] [place], [address] EMERGENCY DEPARTMENT Observed: 04/01/2018 Status: F Source: CAPTIVA SUMMARY 4:49 PM [facility] REPOSITORY [facility] Medical Records Department [address] [place] [address] Emergency Department Summary 04/01/18 1053 MR#: [id number] Acct: [id number] Name: MELISSA RAE Rep #: [id number] : 1980 37 From: Abhijeet Daly MD [...] injections or drug use. Denies any new raza-aaw-xjzihme remedies. Physical Examination: Vital signs notable for [...] Worsening rash This note was generated with [employer] dictation software. It may contain incorrect words, [...] problems, contact your Primary Care Provider. Call [email or web address] Registry ([phone]) or report to the closest Emergency Room. Call 911 if necessary. 04/01/18 1649 <Electronically signed by Abhijeet Daly MD> Date Abhijeet Daly MD Cosigner Signature (If Indicated): Date CC: No Primary Care Physician HISTORY AND PHYSICAL Observed: 04/01/2018 Status: F Source: [place] EXAM 4:23 PM [facility] REPOSITORY [facility] Medical Records Department [address] [place] [address] History and Physical 04/01/18 1430 MR#: [id number] Acct: [id number] Name: MELISSA RAE Rep #: [id number] : 1980 37 From: Kandace Mcclain FREIGHT BROKER-C PCP: Care Physician, No Primary Status: ADM [place] Y Location: [place] [address]-1 ADDENDUM by Maci Martinez on 04/01/18 at [...] Continue the Benadryl OBSV E AND M: 96332 Initial observation care L3 04/01/18 1623 <Electronically signed by Alhaji Martinez DO> Date Alhaji Martinez DO cc: RUSSELL Mcclain; No Primary Care [...] Status: F Source: [place] (VISTA) 11:55 AM [facility] REPOSITORY Order Comment: Order Date: 04/01/18 TYPE [...] Normal NEGATIVE Performed By: #### L505.5000 #### [facility] [address] [place], [address] URINALYSIS, COMPLETE Collected: 04/01/2018 Status: F Source: [place] 11:55 AM [facility] REPOSITORY Order Comment: Order Date: 04/01/18 How [...] URINE SEEN Performed By: #### L400.0001 #### [facility] [address] [place], [address] Observed: 04/01/2018 Status: F Source: [place] CULTURE, BLOOD (WB) 11:55 AM [facility] REPOSITORY BC No growth in 5 days. Performed By: #### M200.1000 #### [facility] [place], [address] LACTIC ACID Collected: 04/01/2018 Status: F Source: [place] 10:55 AM [facility] REPOSITORY Order Comment: Yes/No query for Sepsis Lactate Rule Y TYPE CODE TESTS RESULT OUT OF RANGE REFERENCE UNITS LAB L503.6005 0.4-2.0 mmol/L Normal LACTIC ACID 1.4 Performed By: #### L503.6005 #### [facility] [address] [place] [address], [address] ALCOHOL, BLOOD Collected: 04/01/2018 Status: F Source: [place] (MEDICAL)-SERUM 10:55 AM [facility] REPOSITORY TYPE CODE TESTS RESULT OUT OF [...] fatal coma Performed By: #### L501.9100 #### [facility] [address] [place], [address] Observed: 04/01/2018 Status: F Source: [place] CULTURE, BLOOD (WB) 10:55 AM [facility] REPOSITORY BC No growth in 5 days. Performed By: #### M200.1000 #### [facility] [address] [place], [address] CHEST PA AND LATERAL Observed: 04/01/2018 Status: F Source: [place] 10:40 AM [facility] REPOSITORY [facility] Imaging Services [address] [place] [address] Chest PA and Lateral MR#: [id number] Acct: [id number] Name: MELISSA RAE Rep #: [id number] : 1980 M 37 From: Jackson Monge DO PCP: Care Physician, No Primary Status: PRE ER Study: Chest PA and Lateral Date of Exam: 04/01/18 Exam# [id number] Ordering Dr: Abhijeet Daly MD STUDY: X-RAY [...] CC: No Primary Care Physician; Abhijeet Daly Family Resource Management Specialist: Signed CBC W/DIFF, AUTOMATED Collected: 04/01/2018 Status: F Source: [place] 10:33 AM [facility] REPOSITORY TYPE CODE TESTS RESULT OUT OF [...] Lymph 2.04 Performed By: #### L100.0100 #### [facility] [address] [place], [address] PROTHROMBIN TIME W/INR Collected: 04/01/2018 Status: F Source: [place] 10:33 AM [facility] REPOSITORY TYPE CODE TESTS RESULT OUT OF RANGE REFERENCE UNITS LAB L300.4150 11.7-14.9 SECONDS Normal PROTIME 12.7 LAB L300.4200 Normal INR 1.0 Performed By: #### L300.3900, L300.4310 #### [facility] [address] [place], [address] PARTIAL THROMBOPLAST Collected: 04/01/2018 Status: F Source: [place] TIME 10:33 AM [facility] REPOSITORY TYPE CODE TESTS RESULT OUT OF REFERENCE UNITS RANGE LAB L300.4310 24.1-36.2 Seconds Low PTT 23.0 Performed By: #### L300.3900, L300.4310 #### [facility] [address] [place], [address] COMPREHENSIVE METABOLIC Collected: 04/01/2018 Status: F Source: [place] PROFIL 10:33 AM [facility] REPOSITORY TYPE CODE TESTS RESULT OUT OF [...] Normal 8 Performed By: #### L500.4050 #### [facility] [address] [facility] [id number] ERYTHROCYTE SED RATE Collected: 04/01/2018 Status: F Source: [place] 10:33 AM [facility] REPOSITORY Order Comment: Comments: please add on to ER labs if possible TYPE CODE TESTS RESULT OUT OF RANGE REFERENCE UNITS LAB L102.0000 0-15 mm/hr High SED RATE 16 Performed By: #### L101.9900 #### [facility] [address] [facility] [id number] CRP Collected: 04/01/2018 Status: F Source: [place] 10:33 [facility] REPOSIT[facility] Order Comment: Comments: please add on [...] be ordered. Performed By: #### L501.6710 #### [facility] [address] [facility] [place], [place], [address] ALLERGIES ALLERGIES DATE TYPE / CODE NAME / CODE REACTION SEVERITY SOURCE 04/23/2018 Drug No Known Unknown [facility] Allergy/4160 Allergies/F00 [facility] 31034(SNOMED 5411794(RXNOR Repository CT) M) ENCOUNTERS ENCOUNTERS ADMIT/DISCHARGE ACCOUNT ADMITTING ENCOUNTER LOCATION SOURCE NUMBER CLASS 05/10/2018 [id number] Ambulatory [place] 3 [facility] ing:PT Repository 05/04/2018 [id number] Ambulatory Building:[facility] [place] Practices Repository 04/23/2018/ [id number] Emergency [place] 8 4 [facility] ing:ED Repository 04/21/2018/ [id number] Emergency [place] 8 6 [facility] ing:ED Repository 04/17/2018 [id number] Ambulatory [place] 4 [facility] ing:HPRAD Repository 04/01/2018/ [id number] [place], Ambulatory [place] 8 7 [facility] ing:LU4Zrlv: Repository [id number]: 1 04/01/2018 [id number] [place], Ambulatory BMSBuilding:B [place] 5 [place] [facility] Repository 04/01/2018 [id number] [place], Ambulatory BMSBuilding:B [place] 8 [place] [facility] Repository PAYERS PAYERS ENCOUNTER GUARANTOR PAYER SUBSCRIBER SOURCE 05/10/2018 M[place]SA [place] [id number] Insurance:MEDICAL BOOTHDOB: [id number] [place] Number: Repository [place], [place] [id number]: (330) Date:1977-13-72RM [phone] () [address], [place] [address]WO: 05/10/2018 Secondary NOT GIVENUNK [place] Insurance:SELF PAY [facility] Number: Effective Repository Date:2018-04-27 05/04/2018 Melissa VerdinB: Primary Melissa VerdinB: [facility] Practices Insurance:Medical [id number] Repository [address] Number: [place], [place] [id number] CHARITY Meyer [id number]: (330) Date:8577-85-96Yspp 275[address]Irf: Name:[facility] [phone] () ()Tel: (500) Nolan[address] [place] [address] [phone] () [id number]: 04/23/2018 MELISSA Cervantes Primary MELISSA Rodriguez [id number] Insurance:MEDICAL BOOTHDOB: [facility] [id number] [place] Number: Repository charity [place] [id number]: (330) Date:4056-64-04XL [phone] () [address] [place] [phone]: 04/23/2018 Secondary NOT GIVENUNK [place] Insurance:SELF PAY [facility] Number: Effective Repository Date:2018-04-23 04/21/2018 MELISSA Cervantes Primary MELISSA Rodriguez [id number] Insurance:MEDICAL BOOTHDOB: [facility] [id number] [place] Number: Repository charity MEYER [id number]: (330) Date:8243-70-45ZE [phone] () [address] [place] [phone]: 04/21/2018 Secondary NOT GIVENUNK [place] Insurance:SELF PAY [facility] Number: Effective Repository Date:2018-04-21 04/17/2018 MLEISSA Cervantes Primary MELISSA [place] [id number] Insurance:MEDICAL BOOTHDOB: [facility] [id number] [place] Number: Repository charity [place] [id number]: (330) Date:5998-00-47ZB [phone] () [address] [place] [address]OP: 04/17/2018 Secondary NOT GIVENUNK [place] Insurance:SELF PAY [facility] Number: Effective Repository Date:2018-04-17 04/01/2018 MELISSA Cervantes Primary MELISSA Cervantes [place] [id number] Insurance:MEDICAL BOOTHDOB: [facility] [id number] [facility], [place] Number: Repository charity MEYER [id number]: (330) Date:9944-03-81MC [phone] () [place] [phone]: 04/01/2018 Secondary NOT GIVENUNK [place] Insurance:SELF PAY [facility] Number: Effective Repository Date:2018-04-01 04/01/2018 MELISSA Cervantes Primary MELISSA Cervantes [place] [id number] Insurance:MEDICAL BOOTHDOB: [facility] [id number] [facility], [place] Number: [place]ository [place] [id number]: (330) Date:5086-27-79EE [phone] () [place] [phone]: 04/01/2018 Secondary NOT GIVENUNK [place] Insurance:SELF PAY [facility] Number: Effective Repository Date:2018-04-01 04/01/2018 MELISSA Cervantes Primary MELISSA Rodriguez [id number] Insurance:MEDICAL BOOTHDOB: [facility] [id number] [facility], [place] Number: [place]ository [place] [id number]: (330) Date:5140-98-92VB [phone] () [address] [place], [place] [phone]: 04/01/2018 Secondary NOT GIVENUNK [place] Insurance:SELF PAY [facility] Number: Effective Repository Date:2018-04-01
== END 2018-04-21 20:36 | disposition home or self-care (01) ==
PROVIDERS: Emergency Provider Emergency Medicine; Family Provider Nurse Practitioner; PCP Nurse Practitioner
DX: M76.9 Unspecified enthesopathy, lower limb, excluding foot (principal); F17.210 Nicotine dependence, cigarettes, uncomplicated
CPT/HCPCS: 99282

== ENCOUNTER 2018-04-23 04:55 | Emergency (ER) | payer OTHER, SELFPAY ==
[2018-04-23 04:56] VITALS: BP 147/99; PULSE 20; RESP 76; TEMP 36.4; O2SAT 99; BMI 24.4
--- NOTE | 2018-04-23 05:16 | RAD_ITS ---
STUDY: X-RAY - LEFT HIP, SINGLE VIEW OF THE PELVIS REASON FOR EXAM: Male, 37 years old. Left trochanteric tendinitis. TECHNIQUE: 2 views of the left hip. Single view of the pelvis. COMPARISON: None. FINDINGS: Normal femoral head, neck, intertrochanteric region and visualized proximal femur. Normal acetabulum. Normal hip joint. Incidentally noted is an accessory ossicle less. Normal visualized superior and inferior pubic rami and ischial tuberosities. 7 mm ovoid density adjacent to the superior lateral aspect of the right femoral head. This could represent a soft tissue calcification or loose body in the right hip joint. RAD/HIP, UNI W/ Pelvis 2-3 Views IMPRESSION: Normal x-ray examination of the left hip. Soft tissue calcification versus loose body right hip. Correlate clinically. Electronically Signed: Estevan Cunha MD at 6:02 EST , Service support ,
--- NOTE | 2018-04-23 06:26 | ED.DCSUM_ITS ---
- ER Visit Summary Date of Service: 04/23/18 Chief Complaint: 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. History of Present Illness: The patient is a 37 M who presents with left hip pain. This has been present for about a week. He was seen in the emergency department 2 days ago and was diagnosed with tendinitis. Patient states this is not tendinitis. He states it feels like muscle is tight. He complains of some muscle spasm. No history of trauma or injury. No paresthesias or weakness. He denies any other pain. No fever chest pain shortness of breath abdominal pain vomiting diarrhea. He was prescribed meloxicam which he states is not helping. Physical Examination: Afebrile vitals are unremarkable Heart regular rate and rhythm Lungs are clear Abdomen soft Patient does have lateral left hip and buttock tenderness overlying skin appears normal there is no erythema there is no crepitus there is no fluctuance this is proximal and posterior to the trochanteric bursa I do not think this is trochanteric bursitis Active full range of motion of the hip without pain No lower extremity edema brisk capillary refill with normal sensation Test Results: Left hip x-ray shows a normal left hip there is a loose body or calcification of the right hip but he has no pain in that area and did not believe it is related to his current symptoms. Emergency Department Course and Treatment: I do believe this is due to musculoskeletal etiology. The patient is already on meloxicam. He is requesting a muscle relaxer. He was given Flexeril and a prescription for the same. I advised that he follow-up with his primary care provider. He may benefit from physical therapy. If symptoms are not improving he may need further evaluation such as an MRI. He understands to return for new or worsening symptoms. He was discharged. Treatment Plan: [] Disposition: Discharge Impression: 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 This note was generated with [employer] dictation software. It may contain incorrect words, spelling, and punctuation that were not noted in review of the chart prior to signing ED Disposition - Plan for ED Patient: Chief Complaint: Lower Extremity Injury Referrals: Peyton Dickens, SHEKHAR-C [Primary Care Provider] -
--- NOTE | 2018-04-23 06:26 | ED.DEP ---
ED Disposition - Plan for ED Patient: Chief Complaint: Lower Extremity Injury Instructions: ED Strain Muscle Ext Prescriptions: Cyclobenzaprine [Flexeril] 10 mg PO TID PRN #20 tab PRN Reason: Muscle Spasm Referrals: Peyton Dickens NP-C [Primary Care Provider] -
[2018-04-23 06:39] VITALS: BP 119/67; PULSE 71; RESP 16; O2SAT 99
--- OUTSIDE RECORDS SUMMARY | 2018-07-25 16:00 | XMS RPT_ITS ---
:1980 Author Organization OHIP Support Name Relationship Address Phone [employer] Unavailable [address] + [address] [place] [address] RAE, ABHIJEET/CAN Unavailable [address] [phone] [place] [address] [employer] Unavailable [address] + [address] [place] [address] RAE, ABHIJEET/CAN Unavailable [address] [phone] [place] [address] [employer] Unavailable [address] + [address] [place] [address] RAE, ABHIJEET/CAN Unavailable [address] [phone] [place] [address] [employer] Unavailable [address] + [address] [place] [address] RAE, ABHIJEET/CAN Unavailable [address] [phone] [place] [address] [employer] Unavailable [address] + [address] [place] [address] RAE, ABHIJEET/CAN Unavailable [address] [facility] + [place] [address] [employer] Unavailable [address] + [address] [place] [address] RAE, ABHIJEET/CAN Unavailable [address] [phone] [place] [address] [employer] Unavailable [address] + [address] [place] [address] RAE, ABHIJEET/CAN Unavailable [address] [facility] + [place] [address] Care Team Providers Name Role Phone Peyton Dickens Attending Unavailable Ciesa, Peyton Referring Unavailable Ciesa, Peyton Consulting Unavailable Schwiger, Hiram Attending Unavailable Dafneesa, Peyton Primary Care Unavailable Primay Care Physicia, No Primary Care Unavailable Sementi, Maci Admitting Unavailable Sementi, Maci Attending Unavailable Sementi, Maci Referring Unavailable Ciesa, Peyton Primary Care Unavailable Gabriele Dela Cruz Attending Unavailable Sementi, Mcai Admitting Unavailable Kandace Mcclain WORK MANAGER-C Attending Unavailable Sementi, Maci Referring Unavailable Primay Care Physicia, No Primary Care Unavailable Sementi, Maci Consulting Unavailable Ciesa, Peyton Attending Unavailable Ciesa, Peyton Referring Unavailable Ciesa, Peyton Primary Care Unavailable Sementi, Maci Admitting Unavailable Sementi, Maci Referring Unavailable Primay Care Physicia, No Primary Care Unavailable Sementi, Maci Consulting Unavailable Sementi, Maci Attending Unavailable Ciesa, Peyton Attending Unavailable Ciesa, Peyton Referring Unavailable Primay Care Physicia, No Primary Care Unavailable PROBLEMS PROBLEMS DATE TYPE CONDITION / [...] 1:33 PM [facility] REPOSITORY [facility] Health[address] [place] [address] Fax REHABILITATION SERVICES INITIAL EVALUATION MR#: [id number] Acct: [id number] Name: MELISSA RAE Rep #: [id number] : 1980 37 From: Kayode Rosa PT, ATC Referring Dr.: Peyton Dickens NP Status: REG RCR Insurance: [facility] SELF PAY INSURANCE Patient's Visit Information MELISSA [...] sleep secondary to pain. Pt works at [employer] and has been limited secondary to pain. [...] to be FAXED BACK to us at [phone] for Medicare purposes. For Medicare only, by signing this I certify the plan of care. Please let me know if there are questions or concerns regarding this plan of care. Physician Signature: Date: <Electronically signed by Kayode Rosa PT, ATC> 04/27/18 1333 CC: Peyton Dickens NP [facility] Signed DISCHARGE INSTRUCTION Observed: 04/23/2018 Status: F Source: [place] 6:27 AM [facility] REPOSITORY [facility] Medical Records Department [address] [place] [address] Discharge Instruction 04/23/18 0626 MR#: [id number] Acct: [id number] Name: MELISSA RAE Rep #: [id number] : 1980 37 From: Gabriele Dela Cruz [...] your Primary Care Provider. Call [facility] ([phone]) or report to the closest Emergency Room. Call 911 if necessary. 04/23/18 0627 <Electronically signed by Gabriele Dela Cruz MD> Date Gabriele Cubaign Signature (If Indicated): Date CC: Peyton Dickens NP EMERGENCY DEPARTMENT Observed: 04/23/2018 Status: F Source: [place] SUMMARY 6:26 AM [facility] REPOSITORY [facility] Medical Records Department [address] [place] [address] Emergency Department Summary 04/23/18 0623 MR#: [id number] Acct: [id number] Name: MELISSA RAE Rep #: [id number] : 1980 37 From: Gabriele Dela Cruz [...] hip pain This note was generated with Anna Lozabai dictation software. It may contain incorrect words, spelling, and punctuation that were not noted in review of the chart prior to signing ED Disposition - Plan for ED Patient: Chief Complaint: Lower Extremity Injury Referrals: Peyton Dickens, WORK MANAGER-C [Primary Care Provider] - What to do if you have Problems For any increased pain, shortness of breath, bleeding, nausea or vomiting, chest pain, or any unexpected problems, contact your Primary Care Provider. Call [facility] ([phone]) or report to the closest Emergency Room. Call 911 if necessary. 04/23/18 0626 <Electronically signed by Gabriele Dela Cruz MD> Date Gabriele Dela Cruz MD Cosigner Signature (If Indicated): Date CC: Peyton Dickens NP HIP, UNI W/ PELVIS Observed: 04/23/2018 Status: F Source: [place] 2-3 VIEWS 5:17 AM [facility] REPOSITORY [facility] Imaging Services [address] [place] [address] HIP, UNI W/ Pelvis 2-3 Views MR#: [id number] Acct: [id number] Name: MELISSA RAE Rep #: [id number] : 1980 M 37 From: Estevan Cunha PCP: Peyton Dickens NP Status: DEP ER Study: HIP, UNI W/ Pelvis 2-3 Views Date of Exam: 04/23/18 Exam# [id number] Ordering Dr: Gabriele Dela Cruz MD ADDENDUM [...] Peyton Dickens NP; Gabriele Dela Cruz MD Professor Of History: Signed EMERGENCY DEPARTMENT Observed: 04/21/2018 Status: F Source: [place] SUMMARY 8:01 PM [facility] REPOSITORY [facility] Medical Records Department [address] [place] [address] Emergency Department Summary 04/21/181952 MR#: [id number] Acct: [id number] Name: MELISSA RAE Rep #: [id number] : 1980 37 From: Hiram Hardy DO [...] left hip This note was generated with Anna Lozabai dictation software. It may contain incorrect words, spelling, and punctuation that were not noted in review of the chart prior to signing ED Disposition - Plan for ED Patient: Disposition: Home or Assisted Living Chief Complaint: Lower Extremity Injury Diagnosis: Tendinitis of trochanteric region of left hip Instructions: ED Sprain Hip Prescriptions: Meloxicam [Mobic] 15 mg PO DAILY #10 tab Referrals: Peyton Dickens, WORK MANAGER-C [Primary Care Provider] - What to do if you have Problems For any increased pain, shortness of breath, bleeding, nausea or vomiting, chest pain, or any unexpected problems, contact your Primary Care Provider. Call [facility] ([phone]) or report to the closest Emergency Room. Call 911 if necessary. 04/21/182000 <Electronically signed by Hiram Hardy DO> Date Hiram Hardy DO Cosigner Signature (If Indicated): Date CC: Peyton Page [employer] Collected: 04/17/2018 Status: F Source: [place] DNA BY PCR 3:05 PM [facility] REPOSITORY TYPE CODE TESTS RESULT OUT OF RANGE REFERENCE UNITS LAB L8200.1100 Negative Normal MRSA Negative RESULT Performed By: #### L8200.1000 #### [facility] [address] [place], [address] HIP, UNI W/ PELVIS Observed: 04/17/2018 Status: F Source: [place] 2-3 VIEWS 12:38 PM [facility] REPOSITORY [facility] Imaging Services [address] [place] [address] HIP, UNI W/ Pelvis 2-3 Views MR#: [id number] Acct: [id number] Name: MELISSA RAE Rep #: [id number] : 1980 M 37 From: Cait Villagran MD PCP: Care Physician, No Primary Status: REG CLI Study: HIP, UNI W/ Pelvis 2-3 Views Date of Exam: 04/17/18 Exam# [id number] Ordering Dr: Peyton Dickens WORK MANAGER-C STUDY: X-RAY - LEFT HIP REASON FOR [...] , Service support , CC: Peyton Dickens WORK MANAGER; No Primary Care Physician Professor Of History: Signed 12 LEAD ELECTROCARDIOGRAM Observed: 04/06/2018 Status: F Source: [place] 9:25 AM [facility] REPOSITORY [facility] Cardiovascular Services [address] [place] [address] 12 Lead EKG 04/01/18 1040 MR#: [id number] Acct: [id number] Name: MELISSA RAE Rep #: [id number] : 1980 37 From: Cornelio Gibson MD [...] ECG Confirmed by CORNELIO GIBSON MD ([id number]), editor producer DIAMOND KIM ([id number]) on 04/03/2018 4:20:00 PM Referred By: Alhaji Martinez Confirmed By:CORNELIO GIBSON MD 04/03/18 1620 Date Cornelio Gibson MD CC: No Primary Care Physician; Maci Martinez; Abhijeet Daly Signed DISCHARGE SUMMARY Observed: 04/02/2018 Status: F Source: [place] 12:42 PM [facility] Medical Records Department [address] [place] [address] Discharge Summary 04/02/18 1034 MR#: [id number] Acct: [id number] Name: MELISSA RAE Rep #: [id number] : 1980 37 From: Kandace WELLS PCP: Care Physician, No Primary Status: ADM [place] Y Location: MS3 HL129-4 ADDENDUM by RUSSELL Mcclain on 04/02/18 at 1242 Code Visit OBSV E AND M: 12193 Observation care discharge 04/02/18 1242 <Electronically signed [...] WELLS Cosigner Signature (if applicable): Date CC: WORK MANAGERSisi Mcclain; No Primary Care Physician Signed DISCHARGE INSTRUCTION Observed: 04/02/2018 Status: F Source: [place] 10:33 AM [facility] REPOSITORY [facility] Medical Records Department [address] [place] [address] [place] [address] Instructions for Home/Discharge Instructions 04/02/18 1030 MR#: [id number] Acct: [id number] Name: MELISSA RAE Helen Rep #: [id number] : 1980 37 From: Kandace WELLS PCP: [...] Care Physician Observed: 04/01/2018 Status: F Source: [place] CULTURE, WOUND 5:06 PM [facility] REPOSITORY Gram Stain Gram Stain No White Blood Cells No organisms seen Wound Culture No growth aerobically. Performed By: #### M100.1400 #### [facility] [address] [facility] [place], [address] EMERGENCY DEPARTMENT Observed: 04/01/2018 Status: F Source: [place] SUMMARY 4:49 PM [facility] REPOSITORY [facility] Medical Records Department [address] [place] [address] Emergency Department Summary 04/01/18 1053 MR#: [id number] Acct: [id number] Name: MELISSA RAE Rep #: [id number] : 1980 37 From: Abhijeet Daly MD [...] injections or drug use. Denies any new byud-tin-eopbwzv remedies. Physical Examination: Vital signs notable for [...] Worsening rash This note was generated with Anna Lozabai dictation software. It may contain incorrect words, [...] problems, contact your Primary Care Provider. Call [facility] ([phone]) or report to the closest Emergency Room. Call 911 if necessary. 04/01/18 1649 <Electronically signed by Abhijeet Daly MD> Date Abhijeet Daly MD Cosigner Signature (If Indicated): Date CC: No Primary Care Physician HISTORY AND PHYSICAL Observed: 04/01/2018 Status: F Source: [place] EXAM 4:23 PM [facility] REPOSITORY [facility] Medical Records Department [address] [place] [address] History and Physical 04/01/18 1430 MR#: [id number] Acct: [id number] Name: MELISSA RAE Rep #: [id number] : 1980 37 From: Kandace Mcclain WORK MANAGER-C PCP: Care Physician, No Primary Status: ADM [place] Y Location: [place] [address]-1 ADDENDUM by Maci Martinez on 04/01/18 at [...] Continue the Benadryl OBSV E AND M: 71633 Initial observation care L3 04/01/18 1623 <Electronically [...] 11:55 AM [facility] REPOSITORY Order Comment: Order Date: 04/01/18 TYPE [...] Normal NEGATIVE Performed By: #### L505.5000 #### [facility] [address] [place], [address] URINALYSIS, COMPLETE Collected: 04/01/2018 Status: F Source: [place] 11:55 AM [facility] REPOSITORY Order Comment: Order Date: 04/01/18 How [...] URINE SEEN Performed By: #### L400.0001 #### [facility] [address] [place], [address] Observed: 04/01/2018 Status: F Source: [place] CULTURE, BLOOD (WB) 11:55 AM [facility] REPOSITORY BC No growth in 5 days. Performed By: #### M200.1000 #### [facility] [place], [address] LACTIC ACID Collected: 04/01/2018 Status: F Source: [place] 10:55 AM [facility] REPOSITORY Order Comment: Yes/No query for Sepsis Lactate Rule Y TYPE CODE TESTS RESULT OUT OF RANGE REFERENCE UNITS LAB L503.6005 0.4-2.0 mmol/L Normal LACTIC ACID 1.4 Performed By: #### L503.6005 #### [facility] [address] [place] [address], [address] ALCOHOL, BLOOD Collected: 04/01/2018 Status: F Source: [place] (MEDICAL)-SERUM 10:55 AM [facility] REPOSITORY TYPE CODE TESTS RESULT OUT OF [...] fatal coma Performed By: #### L501.9100 #### [facility] [address] [place], [address] Observed: 04/01/2018 Status: F Source: [place] CULTURE, BLOOD (WB) 10:55 AM [facility] REPOSITORY BC No growth in 5 days. Performed By: #### M200.1000 #### [facility] [address] [place], [address] CHEST PA AND LATERAL Observed: 04/01/2018 Status: F Source: [place] 10:40 AM [facility] REPOSITORY [facility] Imaging Services [address] [place] [address] Chest PA and Lateral MR#: [id number] Acct: [id number] Name: MELISSA RAE Rep #: [id number] : 1980 M 37 From: Jackson Monge DO PCP: Care Physician, No Primary Status: PRE ER Study: Chest PA and Lateral Date of Exam: 04/01/18 Exam# [id number] Ordering Dr: Abhijeet Daly MD STUDY: X-RAY [...] CC: No Primary Care Physician; Abhijeet Daly Professor Of History: Signed CBC W/DIFF, AUTOMATED Collected: 04/01/2018 Status: F Source: [place] 10:33 AM [facility] REPOSITORY TYPE CODE TESTS RESULT OUT OF [...] Lymph 2.04 Performed By: #### L100.0100 #### [facility] [address] [place], [address] PROTHROMBIN TIME W/INR Collected: 04/01/2018 Status: F Source: [place] 10:33 AM [facility] REPOSITORY TYPE CODE TESTS RESULT OUT OF RANGE REFERENCE UNITS LAB L300.4150 11.7-14.9 SECONDS Normal PROTIME 12.7 LAB L300.4200 Normal INR 1.0 Performed By: #### L300.3900, L300.4310 #### [facility] [address] [place], [address] PARTIAL THROMBOPLAST Collected: 04/01/2018 Status: F Source: [place] TIME 10:33 AM [facility] REPOSITORY TYPE CODE TESTS RESULT OUT OF REFERENCE UNITS RANGE LAB L300.4310 24.1-36.2 Seconds Low PTT 23.0 Performed By: #### L300.3900, L300.4310 #### [facility] [address] [place], [address] COMPREHENSIVE METABOLIC Collected: 04/01/2018 Status: F Source: [place] PROFIL 10:33 AM [facility] REPOSITORY TYPE CODE TESTS RESULT OUT OF [...] Normal 8 Performed By: #### L500.4050 #### [facility] [address] [facility] [id number] ERYTHROCYTE SED RATE Collected: 04/01/2018 Status: F Source: [place] 10:33 AM [facility] REPOSITORY Order Comment: Comments: please add on to ER labs if possible TYPE CODE TESTS RESULT OUT OF RANGE REFERENCE UNITS LAB L102.0000 0-15 mm/hr High SED RATE 16 Performed By: #### L101.9900 #### [facility] [address] [facility] [id number] CRP Collected: 04/01/2018 Status: F Source: [place] 10:33 [facility] REPOSITORY Order Comment: Comments: please add on [...] be ordered. Performed By: #### L501.6710 #### [facility] [address] [facility] [place], [place], [address] ALLERGIES ALLERGIES DATE TYPE / CODE NAME / CODE REACTION SEVERITY SOURCE 04/23/2018 Drug No Known Unknown [facility] Allergy/4160 Allergies/F00 [facility] 53471(SNOMED [id number](RXNOR Repository CT) M) ENCOUNTERS ENCOUNTERS ADMIT/DISCHARGE ACCOUNT ADMITTING ENCOUNTER LOCATION SOURCE NUMBER CLASS 05/10/2018 [id number] Ambulatory [place] 3 [facility] ing:PT Repository 05/04/2018 [id number] Ambulatory Building:[facility] [place] Practices Repository 04/23/2018/ [id number] Emergency [place] 8 4 [facility] ing:ED Repository 04/21/2018/ [id number] Emergency [place] 8 6 [facility] ing:ED Repository 04/17/2018 [id number] Ambulatory [place] 4 [facility] ing:HPRAD Repository 04/01/2018/ [id number] Sementi, Ambulatory [place] 8 7 [facility] ing:ZG5Etbo: Repository WI853Wkt: 1 04/01/2018 [id number] Sementi, Ambulatory BMSBuilding:B [place] 8 [place]i [facility] Repository 04/01/2018 [id number] Sementi, Ambulatory BMSBuilding:B [place] 5 [place] [facility] Repository PAYERS PAYERS ENCOUNTER GUARANTOR PAYER SUBSCRIBER SOURCE 05/10/2018 [place] [id number] Insurance:MEDICAL BOOTHDOB: [facility] [id number] [facility] Number: Repository [place], [place] [id number]: (330) Date:6101-07-87GQ [phone] () [place], [place] [address]SR: 05/10/2018 Secondary NOT GIVENUNK [place] Insurance:SELF PAY [facility] Number: Effective Repository Date:2018-04-27 05/04/2018 Melissa VerdinB: Primary [place] VerdinB: [facility] Practices Insurance:Medical [id number] Repository [address] Number: [place], [place] [id number] CHARITY Meyer [id number]: ([phone]) Date:3375-70-52Psyq 24363Ktp: Name:[facility] [phone] () ()Tel: [phone] [address] [place] [address] [phone] () [id number]: 04/23/2018 MELISSA Cervantes Primary MELISSA [place] [id number] Insurance:MEDICAL BOOTHDOB: [facility] [id number] Service Unit Number: Repository charity MEYER [id number]: (330) Date:3827-68-15ZM [phone] () [address] [place] [phone]: 04/23/2018 Secondary NOT GIVENUNK [place] Insurance:SELF PAY [facility] Number: Effective Repository Date:2018-04-23 04/21/2018 MELISSA Cervantes Primary MELISSA [place] [id number] Insurance:MEDICAL BOOTHDOB: [facility] [id number] Service Unit Number: Repository charity MEYER [id number]: (330) Date:5414-52-15AZ [phone] () [address] [place] [phone]: 04/21/2018 Secondary NOT GIVENUNK [place] Insurance:SELF PAY [facility] Number: Effective Repository Date:2018-04-21 04/17/2018 MELISSA Cervantes Primary MELISSA [place] [id number] Insurance:MEDICAL BOOTHDOB: [facility] [id number] Service Unit Number: Repository charity MEYER [id number]: (330) Date:7790-86-73RO [phone] () [address] [place] [phone]: 04/17/2018 Secondary NOT GIVENUNK [place] Insurance:SELF PAY [facility] Number: Effective Repository Date:2018-04-17 04/01/2018 MELISSA Cervantes Primary MELISSA Cervantes [place] [id number] Insurance:MEDICAL BOOTHDOB: [facility] [id number] Service Unit Number: Repository charity MEYER [id number]: (330) Date:5135-20-11BS [phone] () [place] [phone]: 04/01/2018 Secondary NOT GIVENUNK [place] Insurance:SELF PAY [facility] Number: Effective Repository Date:2018-04-01 04/01/2018 MELISSA Cervantes Primary MELISSA Cervantes [place] [id number] Insurance:MEDICAL BOOTHDOB: [facility] [id number] Service Unit Number: Repository [place] [id number]: (330) Date:2487-08-03RR [phone] () [place] [phone]: 04/01/2018 Secondary NOT GIVENUNK [place] Insurance:SELF PAY [facility] Number: Effective Repository Date:2018-04-01 04/01/2018 MELISSA Cervantes Primary MELISSA [place] [id number] Insurance:MEDICAL BOOTHDOB: [facility] [id number] Service Unit Number: Repository [place] [id number]: ([phone]) Date:1642-83-54BK [phone] () [address] [place], [place] [phone]: 04/01/2018 Secondary NOT GIVENUNK [place] Insurance:SELF PAY [facility] Number: Effective Repository Date:2018-04-01
== END 2018-04-23 06:40 | disposition home or self-care (01) ==
LOC: ED 05:20
PROVIDERS: Emergency Provider Emergency Medicine; Family Provider Nurse Practitioner; PCP Nurse Practitioner
DX: M25.552 Pain in left hip (principal); Z72.0 Tobacco use
CPT/HCPCS: 73502; 99283

== ENCOUNTER 2018-05-10 10:00 | Outpatient (RCR) | payer OTHER, SELFPAY ==
--- NOTE | 2018-04-27 13:32 | HP.PTEVAL ---
Patient's Visit Information MELISSA RAE is a 37 year old M referred to Physical Therapy by Peyton Dickens NP with a diagnosis of L hip pain. Date of Evaluation: 04/27/18 Physical Therapist: Kayode Rosa PT, ATC - Visit Plan Frequency: 1x/Week Duration: 2 Weeks Plan: L LE stretching (piriformis and IT band), DTR, US, and HEP - Subjective Findings: Pt reports L hip has been sore for 2 weeks. Pt reports the pain had an insidious onset in nature. Pt reports he just woke up one day with the pain. Pt reports for the past 3 days his R hip is starting to get sore. Pt reports he did have xrays which revealed no positive findings. No PMHx. Pt reports he is on muscle relaxers now which are helping some with his pain. Pt reports his pain is located near the greater trochanter of L hip. No tingling or numbness in L LE. Difficulty with sleep secondary to pain. Pt works at [employer] and has been limited secondary to pain. 3/10 pain at rest. 10/10 at worst - Pain L hip Pain Intensity (Out of 10): 3 Pain Intensity Range: 10 - Objective Neuro: B LE sensation is WNL to light touch. B patellar tendon reflex= 2/3. Palpation: Pt is very tender along the greater trochanter. No obvious deformity. ROM: B LE's are equal and WNL. MMT: B LE's are rated at 5/5 throughout with exception to ER= 4/5 and painful. Flexibility: L piriformis muscle is moderately limited at this time. L Tensor is also tight at this time. - Goals Goal 1:: I with HEP in 2-3 visits Goal Time Frame: 2-4 Weeks - Rehabilitation Potential Physical Therapy Diagnosis: L hip pain, weakness, and limited tolerance for work secondary to piriformis syndrome Rehabilitation Potential: Good - Anticipated Interventions Patient/Client Instruction: Educate patient on: Condition, Plan of Care For the Purpose of:: To improve self management Therapeutic Exercise to Include: Body mechanics, Flexibilty training, Active ROM For the Purpose of:: To decrease pain Manual Therapy Techniques to Include: Soft tissue mobilization For the Purpose of:: To decrease pain Ultrasound (thermal/non thermal): Yes For the Purpose of:: To decrease pain Thank you for the opportunity to evaluate your patient. For Medicare and Medicare O plans, please review the plan of care and approve it. It will need to be FAXED BACK to us at [phone] for Medicare purposes. For Medicare only, by signing this I certify the plan of care. Please let me know if there are questions or concerns regarding this plan of care. Physician Signature: Date:
--- NOTE | 2018-07-12 18:51 | HP.PT.NRP ---
HP - Discharge Summary (1) - Patient Information MELISSA RAE was seen in my office for initial evaluation on 04/27/18. The following Plan of Care was established for this patient: Initial Frequency: 1x/Week Initial Duration: 2 Weeks - Anticipated Interventions Patient/Client Instruction: Educate patient on: Condition, Plan of Care For the Purpose of:: To improve self management Therapeutic Exercise to Include: Body mechanics, Flexibilty training, Active ROM For the Purpose of:: To decrease pain Manual Therapy Techniques to Include: Soft tissue mobilization For the Purpose of:: To decrease pain Ultrasound (thermal/non thermal): Yes For the Purpose of:: To decrease pain This patient was last seen in our office . Pertinent comments regarding their Physical therapy will appear below: Pt was treated for one follow up PT visit through the date of 05/10/18 for his R hip pain. Pt has not returned since that visit, and is therefore discontinued at this time. At this point I will be discontinuing this patient from physical therapy. I would be happy to see this patient again in the future if found appropriate by the physician. Thank you! Kayode Rosa, PT, ATC
== END 2018-05-10 19:00 | disposition home or self-care (01) ==
LOC: PT 10:00
PROVIDERS: Family Provider Nurse Practitioner; PCP Nurse Practitioner; Referring Provider Nurse Practitioner; Visit Provider Nurse Practitioner
DX: M25.552 Pain in left hip (principal); M76.10 Psoas tendinitis, unspecified hip
CPT/HCPCS: 97110; 97161

== ENCOUNTER 2018-09-27 10:30 | Outpatient (RCR) | payer OTHER, SELFPAY ==
--- NOTE | 2018-09-10 13:16 | HP.PTEVAL_ITS ---
Patient's Visit Information MELISSA RAE is a 38 year old M referred to Physical Therapy by Peyton Dickens NP with a diagnosis of LEFT HIP PAIN. Date of Evaluation: 09/10/18 Physical Therapist: Melissa Bower, PT, Cert MDT, OCS - Visit Plan Duration: 4 Weeks Plan: INITIATE MODALTIES ,STRETCHINH ,LUMBAR ROM,STRENGTHENING - Subjective Findings: This 38 y/o male presents to physicla therapy with left hip pain. Patient has pain distal quadsriceps ,feels very tight stiff ,burning sensation. Patient tried PT in past in May but pain lateral hip region. Return to MD resumed PT. 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 Patient sleeping okay at night. Denies parathesia/tingling. Bowel/bladder-. Coughing/sneezing-. Patient symptoms affect QOL and function. Patient symptpoms affect job demands. SOCIAL: single. VOCATION: [employer] - Pain Bilateral Lower Extremity Pain Intensity (Out of 10): 8 Pain Intensity Range: 10 Comment: thigh - Objective POSTURE: mild foward posture. GAIT: ambulates with antalgic right side. PALAPTION: tender mid Quad. NEURO: c/o burning thighs. FLEXABLITY: hams min tight,quads min tight,IR mod tight. MMT: quads/hams 4/5,hip 4/5,hip abd 4/5. LUMBAR ROM: min loss,ext min/mod loss,side glides min loss. INTACT HEEL TOE - Special Tests L/S Slump test left side: Negative L/S Slump test right side: Negative L/S Left Straight Leg Raise: Negative L/S Right Straight Leg Raise: Negative L/S Left Femoral Nerve Tension: Negative L/S Right Femoral Nerve Tension: Negative Lumbar Standing: Flexion - Mechanical Response: No effect Lumbar Standing: Flexion - Symptoms During Testing: Increases Lumbar Standing: Flexion - Symptoms After Testing: Worse Lumbar Standing: Extension - Mechanical Response: No effect Lumbar Standing: Extension - Symptoms During Testing: Increases Lumbar Standing: Extension - Symptoms After Testing: Worse Lumbar Lying: Flexion - Mechanical Response: No effect Lumbar Lying: Flexion - Symptoms During Testing: No effect Lumbar Lying: Flexion - Symptoms After Testing: No effect Lumbar Lying: Extension - Mechanical Response: No effect Lumbar Lying: Extension - Symptoms During Testing: No effect Lumbar Lying: Extension - Symptoms After Testing: No effect R Hip Scour: Negative R Hip Quadrant - Intraarticular Pathology: Negative R Hip Feng - IT Band: Negative L Hip Scour: Negative L Hip Quadrant - Intraarticular Pathology: Negative L Hip Feng - IT Band: Negative - Goals Goal 1:: Patient to be Independant with HEP Goal Time Frame: 4-6 Weeks Goal 2:: Patient to be decrease symptoms by 50% or greater to imptove standing. Goal Time Frame: 4-6 Weeks Goal 3:: Patient to normailzie gait Goal Time Frame: 4-6 Weeks Goal 4:: Patient to improve LFES BY 10 points or greater to improve function Goal Time Frame: 4-6 Weeks Goal 5:: Patient able to perform ADL'S and job demnads with min limitaions Goal Time Frame: 4-6 Weeks - Rehabilitation Potential Physical Therapy Diagnosis: This patient has bilateral thigh pain and burning symptoms with standing,walking and during job demnads sitting is typical better. Etiology is uncertain due to unload symptoms better,tender thigh with deep pressure. Rehabilitation Potential: Good - Anticipated Interventions Patient/Client Instruction: Educate patient on: Condition, Plan of Care For the Purpose of:: To decrease pain, To increase ROM, To improve muscle performance and motor function, To improve ability to perform ADL's, To increase tolerance to activity/condition/position, To improve ability of physical actions for home/community/work/leisure, To improve health of tissue, To decrease soft tissue restriction, To increase flexibility/ROM, To improve ability to perform tasks related to life management Therapeutic Exercise to Include: Strength training, Postural training, Flexibilty training, Active ROM, Dynamic Lumbar Stabilization Comment: LE For the Purpose of:: To decrease pain, To increase ROM, To improve muscle performance and motor function, To improve ability to perform ADL's, To improve ability of physical actions for home/community/work/leisure, To improve health of tissue, To decrease soft tissue restriction, To increase flexibility/ROM, To improve ability to perform tasks related to life management TENS: Yes IF ES: Yes Cryotherapy (ice pack, ice massage): Yes Thermo therapy (hot pack): Yes For the Purpose of:: To decrease pain, To increase ROM, To improve nutrient delivery to tissue, To increase oxygenation perfusion, To improve health of tissue, To decrease soft tissue restriction Thank you for the opportunity to evaluate your patient. For Medicare and Medicare HMO plans, please review the plan of care and approve it. It will need to be FAXED BACK to us at [phone] for Medicare purposes. For Medicare only, by signing this I certify the plan of care. Please let me know if there are questions or concerns regarding this plan of care. Physician Signature: Date:
--- NOTE | 2018-09-27 11:29 | HP.PTDCSUM ---
HP - PT D/C Summary It has been my pleasure to treat MELISSA RAE under orders from Peyton Dickens NP, for the diagnosis of LEFT HIP PAIN for a total of 6 visit(s). Discharge Date: 09/27/18 Please see the following information for a summary of their discharge status. - Subjective Subjective: Doing good ..ready for d/c. Able to do my job demands without proble. Patient has TENS unit and stick at home. - Pain Bilateral Lower Extremity Pain Intensity (Out of 10): 0 - Overall Improvement % Improvement: 75 - Objective Objective/Function: POSTURE:WFL. PALAPTION: mild quads. FLEXABLITY: QUADS WNL. MMT: QUADS/HAMS 4/5. GAIT : NORMAL IAM - Goals Goal 1:: Patient to be Independant with HEP Goal Progress: Goal Met Goal 2:: Patient to be decrease symptoms by 50% or greater to imptove standing. Goal Progress: Goal Met Goal 3:: Patient to normailzie gait Goal Progress: Goal Met Goal 4:: Patient to improve LFES BY 10 points or greater to improve function Goal Progress: Goal Met Goal 5:: Patient able to perform ADL'S and job demnads with min limitaions Goal Progress: Goal Met - Plan Plan: D/C TO HEP - D/C Information Discharge Comments: MET If there are questions or concerns regarding this patient's physical therapy, please feel free to call me at [phone]. Thank you for the referral of this patient. Sincerely, Melissa Bower, PT, Cert MDT, OCS
== END 2018-09-27 19:00 | disposition home or self-care (01) ==
LOC: PT 10:30
PROVIDERS: Family Provider Nurse Practitioner; PCP Nurse Practitioner; Referring Provider Nurse Practitioner; Visit Provider Nurse Practitioner
DX: M25.552 Pain in left hip (principal)
CPT/HCPCS: 97014; 97035; 97161; G0283

== ENCOUNTER → 2020-01-06 15:27 | Outpatient (CLI) | payer OTHER, SELFPAY ==
[2020-01-06 15:27] VITALS: BMI 24.4
[2020-01-06 16:03] LABS: Absolute Neutrophil Count 4.1 X10^3/uL (2.0-7.7); Basophil# 0.03 X10^3/uL; Basophil% 0.4 % (0-1); Eosinophil# 0.25 X10^3/uL; Eosinophils% 3.3 % (0-5); Hematocrit 43.5 % (40-54); Hemoglobin 15.1 g/dL (13.0-16.5); Lymphocyte % 36.8 % (19-41); Mean Corp Hgb Conc 34.7 g/dL (32-36); Mean Corpuscular Hgb 34.5 pg (27.0-32.0); Mean Corpuscular Volume 99.3 fL (80-94); Mean Platelet Vol. 9.3 fl (6.2-12.0); Monocyte# 0.41 X10^3/uL; Monocyte% 5.4 % (0-10); NRBC Flagged by Analyzer 0 % (0-5); Neutrophil # 4.09 X10^3/uL (2.7-7.7); Neutrophil % 53.8 % (47-70); Platelet Count 186 K/mm3 (150-450); Red Blood Count 4.38 M/mm3 (4.6-6.2); White Blood Count 7.6 K/mm3 (4.4-11.0)
[2020-01-06 16:45] LABS: Vitamin D,25 Hydroxy 55.9 ng/mL
[2020-01-06 16:54] LABS: AST(SGOT) 30 U/L (15-37); Alanine Aminotransfer ALT/SGPT 48 U/L (16-61); Albumin, Serum 3.9 g/dL (3.2-5.0); Alkaline Phosphatase 59 U/L (45-117); Anion Gap 7 (5-15); BUN 19 mg/dL (7-18); BUN/Creat Ratio 17.8 RATIO (10-20); Chloride 104 mmol/L (98-107); Cholesterol 217 mg/dL (200); Creatinine, Serum 1.07 mg/dL (0.70-1.30); EST Glomerular Filtration Rate 81 mL/min (>60); Est Glom Filt Rate - Afr Amer 98 mL/min (>60); Globulin 3.9 g/dL (2.2-4.2); Glucose 82 mg/dL (74-106); High Density Lipoprotein 60 mg/dL; Potassium 3.8 mmol/L (3.5-5.1); Protein, Total 7.8 g/dL (6.4-8.2); Sodium Level 136 mmol/L (136-145); Thyroid Stim Hormone (TSH) 1.66 uIU/mL (0.358-3.74); Triglycerides 90 mg/dL; Very Low Density Lipoprotein 18 mg/dL (5-40)
== END ==
PROVIDERS: PCP Nurse Practitioner; Referring Provider Nurse Practitioner; Visit Provider Nurse Practitioner
DX: I10 Essential (primary) hypertension (principal); E55.9 Vitamin D deficiency, unspecified
CPT/HCPCS: 36415; 80053; 80061; 82306; 84443; 85025

== ENCOUNTER → 2020-07-08 15:28 | Outpatient (CLI) | payer OTHER, SELFPAY ==
[2020-01-06 15:27] VITALS: BMI 24.4
[2020-07-08 16:53] LABS: Absolute Lymphocyte Count 1.76 X10^3/uL (0.83-4.51); Absolute Neutrophil Count 4.6 X10^3/uL (2.0-7.7); Basophil# 0.02 X10^3/uL; Basophil% 0.3 % (0-1); Eosinophil# 0.12 X10^3/uL; Eosinophils% 1.7 % (0-5); Hematocrit 43.8 % (40-54); Hemoglobin 14.6 g/dL (13.0-16.5); Lymphocyte # 1.76 X10^3/ul (4.0); Lymphocyte % 25.7 % (19-41); Mean Corp Hgb Conc 33.3 g/dL (32-36); Mean Corpuscular Volume 101.9 fL (80-94); Mean Platelet Vol. 9.7 fl (6.2-12.0); Monocyte# 0.36 X10^3/uL; Monocyte% 5.2 % (0-10); NRBC Flagged by Analyzer 0 % (0-5); Neutrophil # 4.57 X10^3/uL (2.7-7.7); Neutrophil % 66.7 % (47-70); Platelet Count 174 K/mm3 (150-450); RBC Distribution Width CV 12.6 % (11.6-14.6); RBC Distribution Width SD 47.3 fl (35.1-43.9); White Blood Count 6.9 K/mm3 (4.4-11.0)
[2020-07-08 17:29] LABS: ALB/GLOB Ratio 1.1 RATIO (0.9-2.4); AST(SGOT) 43 U/L (15-37); Alanine Aminotransfer ALT/SGPT 61 U/L (16-61); Albumin, Serum 4.2 g/dL (3.2-5.0); Alkaline Phosphatase 68 U/L (45-117); Anion Gap 8 (5-15); BUN 15 mg/dL (7-18); Calcium,Total 9.3 mg/dL (8.5-10.1); Chloride 103 mmol/L (98-107); EST Glomerular Filtration Rate 88 mL/min (>60); Est Glom Filt Rate - Afr Amer 106 mL/min (>60); Globulin 3.8 g/dL (2.2-4.2); Glucose 90 mg/dL (74-106); Potassium 3.7 mmol/L (3.5-5.1); Sodium Level 137 mmol/L (136-145); Thyroid Stim Hormone (TSH) 0.72 uIU/mL (0.358-3.74); Uric Acid 6.5 mg/dL (3.5-7.2)
== END ==
PROVIDERS: PCP Nurse Practitioner; Referring Provider Nurse Practitioner; Visit Provider Nurse Practitioner
DX: I10 Essential (primary) hypertension (principal); M10.9 Gout, unspecified
CPT/HCPCS: 36415; 80053; 84443; 84550; 85025

== ENCOUNTER 2021-05-02 13:34 | Emergency (ER) | payer OTHER, SELFPAY ==
[2021-05-02 13:35] VITALS: BP 131/104; PULSE 118; RESP 16; TEMP 35.9; BMI 22.4
--- NOTE | 2021-05-02 14:20 | EX.ED.VIS.PS ---
HPI HPI - Psych History of Present Illness Chief Complaint: Anxiety Informant: patient Onset/Context/Timing Onset: Today Context: Sudden Onset Current Severity: Mild Maximum Severity: Moderate Narrative Narrative: 40-year-old male past medical history of hypertension for which he is not on medications. Says that recently has been undergoing hospital and snf due to Covid. He thinks that is working already made him more anxious and believes that he had a panic attack. Again anxious, his mouth got real dry and his pulse shot up. Says he is feeling better now not totally resolved but improving. He is never had an episode like this before. Prior similar symptoms: No Recent Illness/Hospitalization: No PFSH PFSH Medical History Alcohol abuse Hypertension Smoker Home Medications diphenhydramine HCl [Benadryl] 25 mg PO TID PRN PRN #12 capsule 04/02/18 [Rx Last Taken Unknown] sulfamethoxazole-trimethoprim 1 tab PO BID #10 tablet 04/02/18 [Rx Last Taken Unknown] meloxicam 15 mg PO DAILY #10 tab 04/21/18 [Rx Last Taken Unknown] cyclobenzaprine 10 mg PO TID PRN #20 tab 04/23/18 [Rx Last Taken Unknown] lorazepam [Ativan] 1 mg PO DAILY PRN #5 tab 05/02/21 [Rx Last Taken Unknown] Allergy/AdvReac Type Severity Reaction Status Date / Time No Known Allergies Allergy Verified 05/02/21 13:35 Social History Smoking Status: Current every day smoker tobacco type: cigarettes ROS ROS ED ROS Narrative I denies recent illness. Review of Systems ROS Unobtainable: Denies due to encephalopathy Constitutional Constitutional ED: Denies fever(s) Eyes Eyes: Denies change in vision ENT ENT ED: Denies ear pain Cardiovascular Cardiovascular: Denies chest pain Respiratory/Chest Respiratory/Chest: Denies dyspnea Gastrointestinal Gastrointestinal: Denies abdominal pain, diarrhea, nausea or vomiting Genitourinary Genitourinary ED: Denies dysuria Musculoskeletal Musculoskeletal: Denies myalgias Integumentary Denies rash Neurologic Neurologic: Denies headache(s) Psychiatric Psychiatric: Denies depression Endocrine Endocrinology: Denies polyuria Hematologic/Lymphatic Hematologic/Lymphatic: Denies easy bruising Allergic/Immunologic Allergic/Immunologic ED: Denies urticaria EXAM Physical Exam Narrative Exam Narrative: Regular male no acute distress vital signs stable afebrile. Blood pressure is elevated at 131/104. Pulse elevated 118. H EENT exam unremarkable. Moist remembers. Neck nontender no lymphadenopathy. Lungs clear to auscultation bilaterally. Heart regular rhythm rate about 110 no murmur. Abdomen soft nontender. Moving all 4 extremities. Nontender no edema. Neurologically awake and alert. No focal motor deficits. Const Vital Signs: 05/02/21 13:35 Temperature 96.7 F L Temperature Source Temporal Pulse Rate 118 H Respiratory Rate 16 Blood Pressure 131/104 H Blood Pressure Mean 113 Positive well nourished and well developed; Negative for obese, cachectic, contractures or unkempt General Appearance ED: well developed and NAD; Negative for unkempt, cachectic, contractures or pallor Nutritional Appearance: Negative for cachectic or obese HEENT Reports moist mucous membranes normocephalic and atraumatic Eyes PERRL and EOMs intact bilaterally Neck no lymphadenopathy, supple and no JVD General: Negative for tenderness Resp normal respiratory effort and clear to auscultation bilaterally Auscultation: Negative for rales, rhonchi or wheezes Cardio S1 normal heart sound, S2 normal heart sound and no murmurs Rate: regular rate Rhythm: regular rhythm GI non-tender, non-distended and no masses Inspection: Negative for abdominal distention Auscultation: normoactive bowel sounds Palpation: soft; Negative for tender or guarding Back/Spine no CVA tenderness General Back: Negative for CVA tenderness Extremity normal to inspection General Extremety ED: Negative for edema or tenderness General Extremity: Negative for edema Neuro oriented x3 and CN's II-XII intact bilaterally Sensorium / Orientation: alert, oriented to person, oriented to place and oriented to time; Negative for orientation impaired, confused, lethargic or stuporous Motor Exam: strength 5/5 throughout Psych mental status grossly normal, thought process normal, cooperative, affect normal, speech normal and activity/motor behavior normal Appearance: Negative for unkempt Skin General Skin Exam: Negative for jaundice or pallor Lesions: no lesions Rashes: no rashes MDM MDM MDM Narrative Medical decision making narrative: 40-year-old male with acute anxiety. Will be given p.o. Ativan. Discharged home. Otherwise exam normal. Follow-up with his primary care provider about anxiety treatments and/or if he needs to be on medications for blood pressure. Discharge Plan Triage Chief Complaint: Anxiety ED Provider: Noé Harkins Dx/Rx/DC Orders Instructions: ED Anxiety Reaction, ED Panic Attack Prescriptions: New lorazepam [Ativan] 1 mg tablet 1 mg PO DAILY PRN (Reason: anxiety) Qty: 5 RF: 0 No Action sulfamethoxazole-trimethoprim 1 TABLET tablet 1 tab PO BID Qty: 10 RF: 0 diphenhydramine HCl [Banophen] 25 MG capsule 25 mg PO TID PRN PRN (Reason: Itching) Qty: 12 RF: 0 meloxicam 15 MG tablet 15 mg PO DAILY Qty: 10 RF: 0 cyclobenzaprine 10 MG tablet 10 mg PO TID PRN (Reason: Muscle Spasm) Qty: 20 RF: 0 Primary Care Provider: Peyton Dickens NP Referrals: Peyton Dickens [employer]ENDER, [employer] [Primary Care Provider] - 1 Week Activity Restrictions/Additional Instructions: Use the Ativan as needed if you are having an anxiety. Do not drink or drive if using the Ativan. It may make you sleepy. Follow-up with your primary care provider to discuss with her if you need to be started on blood pressure medications or long-term anxiety meds. Log your blood pressures twice daily and show her those readings so she can make informed decision if you need to be started on blood pressure medication. Consider other options on top of medication for anxiety relief such as exercise, walking, reading, counseling or yoga or meditation. Disposition Disposition: Home, Self Care
[2021-05-02] MEDS: LORazepam 1 MG Tablet PO (14:30)
[2021-05-02 14:59] VITALS: BP 130/95; PULSE 100; RESP 16
--- NOTE | 2021-05-02 15:02 | ED.RN ---
PT VOICED INTEREST IN RECEIVING COVID VACCINE. INFORMED VACCINE COULD BE ORDERED AND EDUCATED ON OBSERVATION TIME REQUIRED AFTER VACCINE GIVEN-PT DECLINED VACCINE STATING IT'S BEEN A LONG DAY. I'D RATHER NOT WAIT AROUND. I'LL GO SOMEWHERE ELSE TO GET THE VACCINE. CHAITANYA AND NOTIFIED.
== END 2021-05-02 15:06 | disposition home or self-care (01) ==
PROVIDERS: Emergency Provider Emergency Medicine; PCP Nurse Practitioner
DX: F41.9 Anxiety disorder, unspecified (principal); I10 Essential (primary) hypertension; F17.210 Nicotine dependence, cigarettes, uncomplicated; Z20.822 Contact with and (suspected) exposure to COVID-19; Z79.1 Long term (current) use of non-steroidal anti-inflammatories (NSAID); Z23 Encounter for immunization
CPT/HCPCS: 91300; 99282

== ENCOUNTER 2022-07-14 20:04 | Emergency (ER) | payer OTHER, SELFPAY ==
[2022-07-14 20:05] VITALS: BP 126/90; PULSE 100; RESP 18; TEMP 36.6; O2SAT 97; BMI 23.1
--- NOTE | 2022-07-14 20:32 | EDS_ITS ---
HPI <RUSSELL Alvarado - Last Filed: 07/14/22 21:19> History of Present Illness Chief Complaint: Back Narrative Narrative: Patient is a 42-year-old male with no significant medical history does not currently see a doctor presents to the emergency department with 3 days of left rib pain. Patient states that he is just getting over a virus where he coughed violently. Patient states that he has some edema, protrusion of his left lower rib that is radiating to his left back. Patient states it hurts worse with movement as well as coughing. He denies any injury, denies any fall. Denies any recent travel, denies any history of blood clots in his legs or lungs. PFSH <RUSSELL Alvarado - Last Filed: 07/14/22 21:19> [facility] Medical History Alcohol abuse Hypertension Smoker Home Medications naproxen 500 mg tablet (Naprosyn) 500 mg PO BID PRN pain #20 tabs 07/14/22 [Rx Last Taken Unknown] Allergy/AdvReac Type Severity Reaction Status Date / Time No Known Allergies Allergy Verified 07/14/22 20:07 Social History Smoking Status: Current every day smoker tobacco type: cigarettes ROS <RUSSELL Alvarado - Last Filed: 07/14/22 21:19> ROS ED ROS Narrative Constitutional: Negative for fever, chills, weight loss, weakness Eyes: Negative for vision loss, vision change, double vision ENT: Negative for any sore throat, ear pain, congestion Cardiovascular: Negative for any chest pain, tightness, palpitations Respiratory: Negative for any cough, sputum production, hemoptysis, dyspnea, dyspnea on exertion, orthopnea Gastrointestinal: Negative for any abdominal pain, nausea, vomiting, diarrhea, constipation, blood in stool, blood in vomit : Negative for any urinary frequency, dysuria, retention, blood in urine Muscle skeletal: Negative for any muscle joint pain, stiffness, myalgias, arthralgias, neck pain, back pain. Positive left rib pain Neurological: Negative for any headache, syncope, numbness or tingling, dizziness Skin: Negative for any rashes, lumps, itching, abrasions, lacerations Psychiatric: Negative for any depression, anxiety, stress, suicidal ideation, homicidal ideation Hematologic: Negative for any easy bruising, excessive bruising, easy bleeding Allergies: Negative for any eczema, hives, rash EXAM <RUSSELL Alvarado - Last Filed: 07/14/22 21:19> Physical Exam Narrative Exam Narrative: Vital signs reviewed. HEET: Head normocephalic atraumatic, TMs clear bilaterally. Posterior pharynx is clear, moist mucous membranes. Nares clear bilaterally. Neck: Supple with no lymphadenopathy or tenderness. No signs of meningismus, negative jolt sign. Cardiac: Regular rate and rhythm no murmurs gallops or rubs, equal peripheral pulses bilaterally. Respiratory: Lungs clear to auscultation bilaterally. Patient lung sounds are clear. Patient does have slight protrusion to the left anterior lower rib. Upon initial evaluation it does seem like a normal variation of his body however he states that is normally not that large. Patient has no crepitus. No significant pain on palpation. Abdomen: Soft, nontender, nondistended. No abdominal bruit or pulsatile masses. No hepatosplenomegaly Extremities: No peripheral edema, no signs of gross trauma or deformity. Active full range of motion of all extremities. Neuro: Cranial nerves II through XII intact, no focal neurological deficits. Skin: Clean dry and intact with no rash, purpura, petechiae, vesicles or pustules. Backs/flank: No CVA tenderness, no midline spinal tenderness, no deformity. Psych: Normal mood and affect. No SI, HI or acute psychosis. Const Vital Signs: 07/14/22 20:05 Temperature 97.9 F Temperature Source Temporal Pulse Rate 100 Respiratory Rate 18 Blood Pressure 126/90 H Blood Pressure Mean 102 Pulse Ox 97 Oxygen Delivery Method Room Air Positive well nourished and well developed General Appearance ED: well developed <Dr. Sarwat Villatoro MD - Last Filed: 07/14/22 21:30> Physical Exam Const Vital Signs: 07/14/22 20:05 Temperature 97.9 F Temperature Source Temporal Pulse Rate 100 Respiratory Rate 18 Blood Pressure 126/90 H Blood Pressure Mean 102 Pulse Ox 97 Oxygen Delivery Method Room Air MDM <RUSSELL Alvarado - Last Filed: 07/14/22 21:19> MDM Radiography Diagnostic Testing: Clinical Impression(s) from Imaging Studies Ribs w/Chest X-Ray 07/14/22 20:40 IMPRESSION: No evidence of displaced rib fracture. Electronically Signed: Estevan Sagastume MD at 21:21 EST , Differential Diagnosis Chest pain/SOB: pneumonia Differential Diagnosis: Pneumonia Why less likely: Negative for any infectious process. Differential Diagnosis: Rib fracture Why less likely: Negative for any trauma. Treatment and Re-Evaluation :: Patient appears well, patient appears nontoxic, vital signs are stable. Patient presents to the emergency department with a concern for a left rib edema, that looks abnormal over the last 3 days. Patient's physical examination was grossly unremarkable. There is no evidence to suspect a pneumothorax, patient has no crepitus, no signs of trauma. Patient did receive x-rays series of the left rib s, this was grossly unremarkable. Patient has no evidence of any consolidation. Patient be treated with anti-inflammatories. He was given IM Toradol here. He will be continue to take naproxen for home. He will continue to perform ice, and gentle stretching. He will have a referral to a primary care physician. I did speak with the patient's mom who is also bedside, they are happy with the pl an of care and were given return precautions <Dr. Sarwat Villatoro MD - Last Filed: 07/14/22 21:30> MDM Radiography Diagnostic Testing: Clinical Impression(s) from Imaging Studies Ribs w/Chest X-Ray 07/14/22 20:40 IMPRESSION: No evidence of displaced rib fracture. Electronically Signed: Estevan Sagastume MD at 21:21 EST , Treatment and Re-Evaluation Comments:: Seen and evaluated independently and in conjunction with nurse practitioner. Agree with notes above unless documented otherwise. Patient woke up with deformity left lower rib and discomfort in the mid left back. No dyspnea, he has been coughing recently no fevers or chills. Nonproductive. No chest discomfort. No abdominal pain. No injury. On exam, he does have a mild deformity of rib #9 left anterior. It is nontender. There is no sternal tenderness. He does have some pain and mild tenderness in the same rib posteriorly in the paraspinal region but no spinal tenderness. No rash. Supportive care advised. I reviewed 5 view x-ray series of the left ribs, and they showed nothing acute. I recommend seeking outpatient evaluation by chiropractor or osteopath for possible manipulation if needed. Discharge Plan Triage Chief Complaint: Back ED Midlevel Provider: Shan Knight ED Provider: Sarwat Villatoro Dx/Rx/DC Orders Clinical Impression: Rib pain, Thoracic back pain Instructions: ED Pain, Acute, Uncertain Cause Prescriptions: New naproxen [Naprosyn] 500 mg tablet 500 mg PO BID PRN (Reason: pain) Qty: 20 0RF Primary Care Provider: Care Physician,Heydi Primary Referrals: Keiry Breen MD [Med Staff - Telephone Lineworker] - Lyndon Kang DO [Non-Staff] - NOT,DEFINED [Non-Staff] - Activity Restrictions/Additional Instructions: Please perform gentle stretching, ice and heat. Use anti-inflammatories daily. Disposition Disposition: Home, Self Care
[2022-07-14] MEDS: Ketorolac 30 MG/ML Syringe IM (20:39)
--- NOTE | 2022-07-14 20:40 | RAD_ITS ---
INDICATION: Rib pain, no known injury EXAMINATION/TECHNIQUE: X-RAY - XR Ribs Unilateral W/ PA Chest Min 3 Views COMPARISON: 04/01/2018 FINDINGS: SOFT TISSUES: No soft tissue swelling or gas. BONES: No displaced fracture. No sclerotic or destructive changes observed. VISUALIZED LUNGS: Clear. No pneumothorax. RAD/Ribs Uni Min 3V w/PA Chest IMPRESSION: No evidence of displaced rib fracture. Electronically Signed: Estevan Sagastume MD at 21:21 EST ,
== END 2022-07-14 21:31 | disposition home or self-care (01) ==
PROVIDERS: Emergency Provider Emergency Medicine; Visit Provider Emergency Medicine
DX: M54.6 Pain in thoracic spine (principal); R07.81 Pleurodynia; F17.210 Nicotine dependence, cigarettes, uncomplicated; F10.10 Alcohol abuse, uncomplicated
CPT/HCPCS: 71101; 99282

== ENCOUNTER 2023-01-18 13:53 | Emergency (ER) | payer OTHER, SELFPAY ==
[2023-01-18 13:53] VITALS: BP 157/94; PULSE 88; RESP 18; TEMP 36.2; O2SAT 99; BMI 23.8
--- NOTE | 2023-01-18 16:37 | EDS_ITS ---
HPI History of Present Illness Chief Complaint: Lower Extremity Injury Detail of Chief Complaint: Bilateral knee pain Informant: patient Narrative Narrative: Patient presents with bilateral knee pain that he has had for about a month. At rest he does not hurt but mostly when standing or walking. Patient also noticed some increased bumps to the anterior knee bilaterally. He denies any fever chills or sweats. He has had no injury. PFSH PFSH Medical History Alcohol abuse Bilateral primary osteoarthritis of knee Hypertension Patellar tendonitis of both knees Smoker Home Medications meloxicam 7.5 mg tablet 7.5 mg PO DAILY PRN patellar tendo 1 month #60 tabs 01/23/23 [Rx Last Taken Unknown] Allergy/AdvReac Type Severity Reaction Status Date / Time No Known Allergies Allergy Verified 01/23/23 09:58 Family History (Updated 01/23/23 @ 10:00 by Jefferson Goncalves RN) Mother Hypertension Father Hypertension Social History (Updated 01/23/23 @ 10:01 by Jefferson Goncalves RN) Smoking Status: Current every day smoker tobacco type: cigarettes alcohol intake: current alcohol intake frequency: a few times a month ROS ROS ED Review of Systems ROS Unobtainable: other Constitutional Constitutional ED: Reports lethargy; Denies chills, fever(s), sweats or weight loss Eyes Eyes: Denies blurry vision, change in vision or diplopia ENT ENT ED: Denies rhinorrhea or sore throat Cardiovascular Cardiovascular: Denies chest pain, orthopnea or racing heartbeat Respiratory/Chest Respiratory/Chest: Denies cough, dyspnea, dyspnea on exertion, orthopnea or sp utum Gastrointestinal Gastrointestinal: Denies abdominal pain, diarrhea, nausea or vomiting Genitourinary Genitourinary ED: Denies dysuria, hematuria or urinary frequency Musculoskeletal Musculoskeletal: Reports arthralgias and other Details: Bilateral knee pain ; Denies back pain, myalgias or neck pain Integumentary Denies abscess, Abrasions or rash Neurologic Neurologic: Denies headache(s) or weakness Psychiatric Psychiatric: Denies anxiety, depression or suicidal thoughts Endocrine Endocrinology: Denies polydipsia, polyphagia or polyuria Hematologic/Lymphatic Hematologic/Lymphatic: Denies easy bleeding, easy bruising or lymphadenopathy Allergic/Immunologic Allergic/Immunologic ED: Denies mouth swelling, tongue swelling or urticaria EXAM Physical Exam Const Vital Signs: 09/13/23 13:53 Temperature 97.1 F L Temperature Source Temporal Pulse Rate 88 Respiratory Rate 18 Blood Pressure 157/94 H Blood Pressure Mean 115 Pulse Ox 99 Oxygen Delivery Method Room Air Positive well nourished and well developed General Appearance ED: well developed and NAD HEENT Reports TM's clear and moist mucous membranes normocephalic and atraumatic; Negative for trauma or tenderness Tympanic Membrane ED: Yes TM's clear Eyes PERRL and EOMs intact bilaterally General Eye ED: Negative for pale conjunctiva or scleral icterus Neck no lymphadenopathy, supple and no JVD General: Negative for tenderness Chest Wall inspection of chest normal and palpation of chest normal Chest: Negative for tenderness Resp normal respiratory effort and clear to auscultation bilaterally Effort and Inspection: Negative for respiratory distress or pain with movement Auscultation: Negative for rhonchi, wheezes or diminished lung sounds Cardio regular rate, regular rhythm, S1 normal heart sound, S2 normal heart sound and no murmurs Peripheral Pulses: pulses 2+ throughout GI normal to inspection, nondistended, normoactive bowel sounds, soft to palpation, non-tender, non-distended and no masses Back/Spine no CVA tenderness and no thoracic nor lumbar tenderness Extremity Extremity Narrative: Bilateral knees-patient has some bony prominence at the insertion of the patellar tendon which is what he was concerned about. There is no erythema or warmth. No effusions noted. He has good range of motion in flexion extension. Ligamentously stable. Neurovascularly intact. General Extremety ED: Negative for edema General Extremity: Negative for edema Neuro oriented x3, CN's II-XII intact bilaterally, no sensory deficits noted and gait normal Sensorium / Orientation: awake, alert, oriented to person, oriented to place and oriented to time Motor Exam: strength 5/5 throughout and strength abnormal Psych mental status grossly normal Skin no rashes or lesions noted and no wounds MDM MDM MDM Narrative Medical decision making narrative: Patient presents with atraumatic knee pain. X-rays unremarkable other than some mild degenerative changes. Patient to continue to wear his braces and use Aleve for this comfort. Will refer to orthopedics for follow-up. Radiography Diagnostic Testing: Clinical Impression(s) from Imaging Studies Knee X-Ray 01/18/23 16:45 IMPRESSION: Mild degenerative change. No acute fracture or other significant bony pathology Electronically Signed: Froilan Nieves MD at 17:08 EDT , Knee X-Ray 01/18/23 16:45 IMPRESSION: Mild degenerative change. No acute fracture or other significant bony pathology Electronically Signed: Froilan Nieves MD at 17:07 EDT , Three-view x-rays of the left knee obtained interpreted by myself as no fractures or dislocations but did show some narrowing of the medial compartment and suspect some degenerative changes. Radiology in agreement. Three-view x-rays of the right knee obtained interpreted by myself as no evidence of fracture or dislocation. Radiology in agreement. Discharge Plan Triage Chief Complaint: Lower Extremity Injury ED Provider: Sy Saldana Dx/Rx/DC Orders Clinical Impression: Acute knee pain Instructions: ED Knee Pain of Uncertain Cause Prescriptions: No Action meloxicam 7.5 mg tablet 7.5 mg PO DAILY MDD 2 PRN (Reason: patellar tendo) 30 Days Qty: 60 0RF Primary Care Provider: Care Physician,No Primary Referrals: Deven Serna MD [Med Staff - Active Staff] - 5-7 Days Care Physician,No Primary [Primary Care Provider] - Disposition Disposition: Home, Self Care Discharge Date/Time: 01/18/23 18:12
--- NOTE | 2023-01-18 16:45 | RAD_ITS ---
STUDY: X-RAY - RIGHT KNEE REASON FOR EXAM: Male, 42 years old. pain TECHNIQUE: 4 view(s) of the knee. COMPARISON: None. FINDINGS: Normal visualized distal femur. Normal visualized proximal tibia and fibula. Normal proximal tibiofibular articulation. Tiny benign bone noted within the lateral femoral condyle Narrowing medial femorotibial compartment. Normal lateral femorotibial compartment. Normal patellofemoral articulation. The soft tissue structures are unremarkable. RAD/Knee 4 or More Views IMPRESSION: Mild degenerative change. No acute fracture or other significant bony pathology Electronically Signed: Froilan Nieves MD at 17:08 EDT ,
--- NOTE | 2023-01-18 16:45 | RAD_ITS ---
STUDY: X-RAY - LEFT KNEE REASON FOR EXAM: Male, 42 years old. PAIN TECHNIQUE: 4 view(s) of the knee. COMPARISON: None. FINDINGS: Normal visualized distal femur. Normal visualized proximal tibia and fibula. Normal proximal tibiofibular articulation. Mildly narrowed medial femorotibial compartment. Normal lateral femorotibial compartment. Normal patellofemoral articulation. Small bone island noted within the medial femoral condyle The soft tissue structures are unremarkable. RAD/Knee 4 or More Views IMPRESSION: Mild degenerative change. No acute fracture or other significant bony pathology Electronically Signed: Froilan Nieves MD at 17:07 EDT ,
== END 2023-01-18 18:12 | disposition home or self-care (01) ==
PROVIDERS: Emergency Provider Emergency Medicine; Visit Provider Emergency Medicine
DX: M25.561 Pain in right knee (principal); F17.210 Nicotine dependence, cigarettes, uncomplicated; I10 Essential (primary) hypertension; M25.562 Pain in left knee
CPT/HCPCS: 73564; 99282

== ENCOUNTER → 2023-03-29 | Outpatient (CLI) | payer OTHER, SELFPAY ==
--- NOTE | 2023-03-29 15:34 | MRI_ITS ---
STUDY: MRI LEFT KNEE REASON FOR EXAM: Male, 42 years old. Left knee pain. Old sports injury. TECHNIQUE: Standardized fat and water weighted pulse sequences were obtained in all 3 orthogonal planes. COMPARISON: Left knee x-rays dated January 18, 2023 FINDINGS: Normal medial meniscus. Normal hyaline cartilage of the medial femorotibial compartment. Normal medial femoral condyle and tibial plateau. Normal medial collateral ligamentous complex (MCL). Normal distal semimembranosus, gracilis and semitendinosus tendons. Normal lateral meniscus. Normal hyaline cartilage of the lateral femorotibial compartment. Normal lateral femoral condyle and tibial plateau. Normal proximal tibiofibular articulation. Normal lateral collateral (fibular) ligament. Normal popliteus tendon. Normal biceps femoris tendon. Normal anterior cruciate ligament (ACL). Normal posterior cruciate ligament (PCL). Normal congruent patellofemoral articulation. Normal hyaline cartilage of the patellofemoral compartment. Normal medial and lateral patellar retinaculum. Normal quadriceps tendon. Normal patellar tendon. Normal Hoffa''s fat pad. Deep infrapatellar bursitis (sagittal series 4 image 17). Small joint effusion (axial series 2 images 2-11). Normal soft tissues and visualized osseous structures. MRI/Lower Ext Joint Only (Routine) IMPRESSION: Mild deep infrapatellar bursitis. Small joint effusion. No other abnormality. Electronically Signed: Jose A Ibrahim MD at 10:55 EST ,
--- NOTE | 2023-03-29 15:34 | MRI_ITS ---
STUDY: MRI RIGHT KNEE REASON FOR EXAM: Male, 42 years old. Patellar pain. Remote sports injury. TECHNIQUE: Standardized fat and water weighted pulse sequences were obtained in all 3 orthogonal planes. COMPARISON: Right knee x-rays dated January 18, 2023. FINDINGS: Normal medial meniscus. Normal hyaline cartilage of the medial femorotibial compartment. Normal medial femoral condyle and tibial plateau. Normal medial collateral ligamentous complex (MCL). Normal distal semimembranosus, gracilis and semitendinosus tendons. Horizontal cleavage tear of the anterior horn of the lateral meniscus with a small septated anterior para meniscal cyst measuring 1 cm in diameter (sagittal series 6 images 7-12, coronal series 8 images 18-24). Normal hyaline cartilage of the lateral femorotibial compartment. Normal lateral femoral condyle and tibial plateau. Normal proximal tibiofibular articulation. Normal lateral collateral (fibular) ligament. Normal popliteus tendon. Normal biceps femoris tendon. Normal anterior cruciate ligament (ACL). Normal posterior cruciate ligament (PCL). Normal congruent patellofemoral articulation. Normal hyaline cartilage of the patellofemoral compartment. Normal medial and lateral patellar retinaculum. Normal quadriceps tendon. Normal patellar tendon. Normal Hoffa''s fat pad. Mild deep infrapatellar bursitis (sagittal series 4 image 13). Small joint effusion (axial series 2 images 12-17). Normal soft tissues and otherwise visualized osseous structures. MRI/Lower Ext Joint Only (Routine) IMPRESSION: Anterior lateral meniscal tear with para meniscal cyst as described. Deep infrapatellar bursitis. Small joint effusion. No other abnormality present. Electronically Signed: Jose A Ibrahim MD at 10:49 EST ,
--- NOTE | 2023-03-29 15:46 | RAD_ITS ---
STUDY: X-RAY - BILATERAL ORBIT REASON FOR EXAM: Male, 42 years old. INJURY TO EYE WITH METAL TECHNIQUE: 2 view(s) of the orbits. COMPARISON: FINDINGS: Normal orbits. No radiopaque foreign bodies. RAD/Orbits for Foreign Body IMPRESSION: No radiopaque foreign bodies over the orbits. The patient is cleared for MRI. Electronically Signed: Phan Moya DO at 17:15 EST ,
== END | disposition home or self-care (01) ==
LOC: MRI 15:32
PROVIDERS: Referring Provider Orthopaedic Surgery Sports Medicine; Visit Provider Orthopaedic Surgery Sports Medicine
DX: M76.51 Patellar tendinitis, right knee (principal); M76.52 Patellar tendinitis, left knee; M17.0 Bilateral primary osteoarthritis of knee
CPT/HCPCS: 70030; 73721

== ENCOUNTER 2023-07-16 13:45 | Emergency (ER) | payer OTHER, SELFPAY ==
[2023-07-16 13:47] VITALS: BP 150/110; PULSE 99; RESP 16; TEMP 36.8; O2SAT 98; BMI 23.3
--- NOTE | 2023-07-16 13:56 | EDS_ITS ---
<Statement entered by Maria A Lancaster MD - 07/16/23 20:35> I have personally performed a face to face assessment of the patient and have reviewed the LEONIE Note. Patient presents secondary to decreased urine output. He states that he has been eating and drinking normally but has noted decreased urine output over the past couple of weeks. He does have some pain in the left CVA region as well. No fever or chills. No history of kidney stones. Patient sitting upright in bed no acute distress. Nontoxic-appearing. Head neck examination unremarkable. Heart is regular rate and rhythm. Lung sounds are clear. Abdomen is soft with no focal tenderness to palpation. Patient states that he does not urinate frequently and only urinates a small amount, however he does feel like he empties completely. Urinalysis reveals no evidence of infection or blood. Lab work reveals normal renal function. Patient reassured and referred for primary follow-up. Return instructions july hughes. HPI History of Present Illness Chief Complaint: Complaint Narrative Narrative: Patient presenting today due to decreased urinary output and decreased urinary frequency that he has had for about 2 weeks. He reports that he notices left sided low back pain shortly after urinating that eventually goes away. 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 He denies any history of UTI or concerns for STDs. He denies fevers, chills, abnormal vaginal discharge, abdominal pain, nausea, and vomiting. He is eating and drinking normally. [facility] Medical History Alcohol abuse Bilateral primary osteoarthritis of knee Hypertension Patellar tendonitis of both knees Smoker Tear of lateral meniscus of right knee Home Medications NK 07/16/23 [History Last Taken Unknown] Allergy/AdvReac Type Severity Reaction Status Date / Time No Known Allergies Allergy Verified 07/16/23 13:51 Family History Mother Hypertension Father Hypertension Social History Smoking Status: Current every day smoker tobacco type: cigarettes alcohol intake: current alcohol intake frequency: a few times a month ROS ROS ED Constitutional Constitutional ED: Denies chills or fever(s) Cardiovascular Cardiovascular: Denies chest pain Respiratory/Chest Respiratory/Chest: Denies cough or dyspnea Gastrointestinal Gastrointestinal: Denies abdominal pain, nausea or vomiting Genitourinary Genitourinary ED: Reports other Details: Decreased urinary frequency, decreased urinary output ; Denies dysuria Musculoskeletal Musculoskeletal: Reports back pain Integumentary Denies rash Neurologic Neurologic: Denies weakness EXAM Physical Exam Const Vital Signs: 07/16/23 13:47 07/16/23 14:44 Temperature 98.3 F 98.2 F Temperature Source Temporal Pulse Rate 99 70 Respiratory Rate 16 16 Blood Pressure 150/110 H 146/103 H Blood Pressure Mean 123 117 Pulse Ox 98 98 Oxygen Delivery Method Room Air Positive well nourished, well developed and no apparent distress General Appearance ED: well developed HEENT Reports normocephalic and head/scalp atraumatic Mouth ED: Yes moist mucous membranes normal Eyes PERRL and EOMs intact bilaterally Neck full ROM and supple Chest Wall inspection of chest normal Resp normal respiratory effort and clear to auscultation bilaterally Cardio regular rate and regular rhythm GI soft to palpation, non-tender, non-distended and no masses Back/Spine no CVA tenderness, normal ROM and normal to inspection Thoracic Spine / Upper Back: Negative for thoracic spinal tenderness Lumbar Spine / Lower Back: Negative for lumbar spinal tenderness Extremity normal to inspection and full ROM Neuro oriented x3, CN's II-XII intact bilaterally, moves all extremities, no focal motor deficits and no sensory deficits noted Sensorium / Orientation: awake and alert Psych mental status grossly normal and thought process normal Skin no rashes or lesions noted and no wounds MDM MDM MDM Narrative Medical decision making narrative: Patient presents today due to recurrent urinary frequency and decreased urinary output that he has had for about 2 weeks. He has had left flank pain after urinating during this time as well. No dysuria or concerns for STDs. He is completely emptying his bladder when he urinates. Vitals are unremarkable, he is well-appearing and in no acute distress. Negative CVA tenderness. Low suspicion for kidney stone given the duration of his symptoms. Labs will be obtained to rule out kidney dysfunction and leukocytosis and UTI. UA negative for UTI, labs overall unremarkable. He does not have a PCP, I will give him a referral for one. He has been given return instructions and will be discharged home in stable condition. He is comfortable with plan Lab Data Attestation: I reviewed the patient's lab results. Labs: Laboratory Results - last 24 hr 07/16/23 07/16/23 14:00 14:08 WBC 4.9 RBC 4.35 L Hgb 15.2 Hct 44.4 MCV 102.1 H MCH 34.9 H MCHC 34.2 RDW Std Deviation 48.2 H RDW Coeff of Shea 12.8 Plt Count 180 MPV 8.9 Immature Gran % (Auto) 0.600 Neut % (Auto) 46.7 L Lymph % (Auto) 42.2 H [place] % (Auto) 7.4 Eos % (Auto) 2.3 Baso % (Auto) 0.8 Absolute Neuts (auto) 2.3 Absolute Lymphs (auto) 2.06 Nucleated RBC % 0 Sodium 140 Potassium 3.7 Chloride 109 H Carbon Dioxide 23.0 Anion Gap 8 BUN 11 Creatinine 0.88 Estim Creat Clear Calc 121.06 Est GFR (MDRD) Af Amer 121 Est GFR (MDRD) Non-Af 100 BUN/Creatinine Ratio 12.5 Glucose 87 Calcium 8.7 Urine Color Yellow Urine Clarity Clear Urine pH 5.0 Ur Specific [place] 1.025 Urine Protein 30 H Urine Glucose (UA) Normal Urine Ketones 5 H Urine Occult Blood 10 H Urine Nitrite Negative Urine Bilirubin 1 H Urine Urobilinogen 1 H Ur Leukocyte Esterase 25 H Urine RBC 0 SEEN Urine WBC 0-5 SEEN Ur Squamous Epith Cells 0 SEEN Urine Bacteria 0 SEEN Urine Mucus 0 SEEN Discharge Plan Triage Chief Complaint: Complaint ED Midlevel Provider: Heather Ibarra ED Provider: Maria A Lancaster Dx/Rx/DC Orders Clinical Impression: Decreased urination Instructions: Dysuria Prescriptions: No Action NK Primary Care Provider: Care Physician,No Primary Referrals: Enid Jones MD [Med Staff - Active Staff] - 5-7 Days Care Physician,No Primary [Primary Care Provider] - Activity Restrictions/Additional Instructions: Please follow-up with the PCP I have referred you to. Return for any worsening of your symptoms. Disposition Disposition: Home, Self Care Discharge Date/Time: 07/16/23 14:45
--- OUTSIDE RECORDS SUMMARY | 2023-07-16 14:12 | XMS RPT_ITS | CCD ---
Author Name Unknown Address [address] [place] [address] Organization [facility] Care Team Providers Care Bat Person Name Role Phone Peyton Dickens Unavailable Selina Malik Unavailable Unavailable Unavailable Unavailable Peyton Dickens Unavailable Unavailable Peyton Dickens Unavailable Unavailable Peyton Dickens Unavailable Unavailable Peyton Dickens Unavailable Kandace Calvert Unavailable Unavailable Unavailable Unavailable Martínez Aguiar Unavailable Unavailable Unavailable Unavailable Martínez Smith Unavailable Unavailable Peyton Dickens CNP Unavailable Martínez Smith LPN Unavailable Unavailable Unavailable Unavailable Peyton Dickens Unavailable Medications Completed/Discontinued Medications Medication Drug Class(es) Dates Sig (Normalized) Sig (Original) calcium carbonate 550 mg / magnesium hydroxide 110 mg chewable tablet (12 sources) Start: 01-27-2020 End: 05-12-2021 Rolaids 550-110 MG Oral Tablet Chewable 1 (one) Tablet prn for leg cramp for 0 days Quantity: 30 {Tablet} Refills: 0 Ordered: 12-May-2021 Martínez Smith LPN Start : 27-Jan-2020 End : 12-May-2021 Inactive cyclobenzaprine hydrochloride 10 mg oral tablet (17 sources) Muscle Relaxant Start: 04-27-2018 End: 11-05-2018 take 1 tablet by mouth three times daily as needed Cyclobenzaprine HCl 10 MG Oral Tablet 1 (one) Tablet three times daily prn for 0 days Quantity: 30 {Tablet} Refills: 1 Ordered: 05-Nov-2018 Kandace Calvert Start : 27-Apr-2018 End : 05-Nov-2018 Inactive diphenhydrAMINE hydrochloride 25 mg oral capsule (19 sources) Histamine-1 Receptor Antagonist Start: 04-04-2018 End: 05-04-2018 take 1 capsule by mouth three times daily as needed DiphenhydrAMINE HCl 25 MG Oral Capsule 1 (one) Capsule tid prn for 30 days Quantity: 30 {Capsule} Refills: 0 Ordered: 04-May-2018 Peyton Dickens Mary Start : 04-Apr-2018 End : 04-May-2018 Inactive LORazepam 0.5 mg oral tablet (1 source) Benzodiazepine Start: 05-12-2021 take 1 tablet by mouth once daily as needed Ativan 0.5 MG Oral Tablet 1 (one) Tablet daily prn only for panic for 0 days Quantity: 20 {Tablet} Refills: 0 Ordered: 12-May-2021 Peyton Dickens Mary Start : 12-May-2021 Active Comments: panic attack F41.0#20AnxietyOarr s run twenty Problems Active Problems Problem Classification Problem Date Documented Da te Episodic/Chronic Anxiety disorders (2 sources) Mixed anxiety and depressive disorder; Translations: [Anxiety and depression] 05-12-2021 Chronic Past or Other Problems Problem Classification Problem Date Documented Date Episodic/Chronic Bacterial infection; unspecified site (19 sources) Staphylococcal infectious disease; Translations: [Staph infection] Resolved: 05-20-2019 04-04-2018 Episodic Results Test Name Value Interpretation Reference Range Facil ity Vital Signs Date Time Vital Sign Value Performing Clinician Facility 05-12-2021 14:02-0500 Body height 182.88 cm Martínez Smith TECHNICAL COMMUNICATOR [facility]; [facility] Work Phone: 05-12-2021 14:02-0500 Body mass index (BMI) [Ratio] 25.77 kg/m2 Martínez Smith TECHNICAL COMMUNICATOR [facility]; [facility] Work Phone: 05-12-2021 14:02-0500 Body surface area Derived from formula 2.08 m2 Martínez Smith TECHNICAL COMMUNICATOR [facility]; [facility] Work Phone: 05-12-2021 14:02-0500 Body weight 86.19 kg Martínez Smith TECHNICAL COMMUNICATOR [facility]; [facility] Work Phone: 07-10-2020 12:34-0500 BMI (Body Mass Index) 25.77 kg/m2 Martínez Smith LPN [facility]; [facility] Work Phone: 07-10-2020 12:34-0500 Body Temperature 97.5 [degF] Martínez Smith LPN [facility]; [facility] Work Phone: Encounters Encounter Date Encounter Type Care Provider Facility Start: 05-12-2021 End: 05-12-2021 Office outpatient visit 10 minutes Peyton Dickens Work Phone: [facility] Start: 05-12-2021 Review Peyton Dickens CNP Work Phone: [facility] Start: 07-10-2020 Review Peyton suazo [facility] Start: 07-10-2020 End: 07-10-2020 Office outpatient visit 15 minutes Peyton Thomas [facility] Start: 07-06-2020 End: 07-06-2020 Office outpatient visit 10 minutes Peyton Thomas [facility] Start: 07-06-2020 Review Peyton Dickens ELECTRIC PILE DRIVER OPERATOR Work Phone: [facility] Start: 02-04-2020 End: 02-04-2020 Office outpatient visit 15 minutes Peyton Thomas [facility] Start: 01-27-2020 End: 01-27-2020 Office outpatient visit 10 minutes Peyton Thomas [facility] Start: 12-30-2019 End: 12-30-2019 Office outpatient visit 25 minutes Peyton Thomas [facility] Start: 12-30-2019 Review Peyton suazo [facility] Start: 07-01-2019 End: 07-01-2019 Office outpatient visit 15 minutes Peyton Thomas [facility] Start: 05-20-2019 End: 05-20-2019 Office outpatient visit 15 minutes Peyton Thomas [facility] Start: 11-05-2018 End: 11-05-2018 Office outpatient visit 25 minutes Peyton Thomas [facility] Start: 05-04-2018 Patient encounter procedure Peyton Thomas [facility] Start: 05-04-2018 End: 05-04-2018 Office outpatient visit 15 minutes Peyton Thomas [facility] Start: 04-27-2018 End: 04-27-2018 Office outpatient visit 15 minutes Peyton Dickens [facility] Start: 04-24-2018 End: 04-24-2018 Annotation/Addendum Peyton Dickens William Numerical Control Router Operator al [facility] Start: 04-24-2018 End: 04-24-2018 Office outpatient visit 15 minutes Peyton Dickens [facility] Start: 04-17-2018 End: 04-17-2018 Office outpatient visit 15 minutes Peyton Chrissie [facility] Start: 04-06-2018 End: 04-06-2018 Office outpatient visit 25 minutes Peyton Chrissie [facility] Start: 04-04-2018 End: 04-04-2018 Office outpatient new 45 minutes Peyton Chrissie [facility] Procedures Date Procedure Procedure Detail Performing Clinician Start: 05-02-2021 End: 05-02-2021 Emergency Department Summary Comments: See Note; NOTES: [facility] Medical Records Department [address] [place] [address] Emergency Department Summary 05/02/21 MR#: [id number] Acct: [id number] Name: MELISSA UP Rep #: [id number] : 1980 40 From: Noé Harkins MD PCP: RUSSELL Bradley Status:REG ER Location: ED HPI HPI - Psych History of Present Illness Chief Complaint: Anxiety Informant: patient Onset/Context/Timing Onset: Today Context: Sudden Onset Current Severity: Mild Maximum Severity: Moderate Narrative Narrative: 40-year-old male past medical history of hypertension for which he is not on medications. Says that recently has been undergoing hospital and retirement due to Covid. He thinks that is working already made him more anxious and believes that he had a panic attack. Again anxious, his mouth got real dry and his pulse shot up. Says he is feeling better now not totally resolved but improving. He is never had an episode like this before. Prior similar symptoms: No Recent Illness/Hospitalization: No PFSH PFSH Medical History Alcohol abuse Hypertension Smoker Home Medications diphenhydramine HCl [Benadryl] 25 mg PO TID PRN PRN #12 capsule 04/02/18 [Rx Last Taken Unknown] sulfamethoxazole-trimethopri m 1 tab PO BID #10 tablet 04/02/18 [Rx Last Taken Unknown] meloxicam 15 mg PO DAILY #10 tab 04/21/18 [Rx Last Taken Unknown] cyclobenzaprine 10 mg PO TID PRN #20 tab 04/23/18 [Rx Last Taken Unknown] lorazepam [Ativan] 1 mg PO DAILY PRN #5 tab 05/02/21 [Rx Last Taken Unknown] Allergy/AdvReac Type Severity Reaction Status Date / Time No Known Allergies Allergy Verified 05/02/21 13:35 Social History Smoking Status: Current every day smoker tobacco type: cigarettes ROS ROS ED ROS Narrative I denies recent illness. Review of Systems ROS Unobtainable: Denies due to encephalopathy Constitutional Constitutional ED: Denies fever(s) Eyes Eyes: Denies change in vision ENT ENT ED: Denies ear pain Cardiovascular Cardiovascular: Denies chest pain Respiratory/Chest Respiratory/Chest: Denies dyspnea Gastrointestinal Gastrointestinal: Denies abdominal pain, diarrhea, nausea or vomiting Genitourinary Genitourinary ED: Denies dysuria Musculoskeletal Musculoskeletal: Denies myalgias Integumentary Denies rash Neurologic Neurologic: Denies headache(s) Psychiatric Psychiatric: Denies depression Endocrine Endocrinology: Denies polyuria Hematologic/Lymphatic Hematologic/Lymphatic: Denies easy bruising Allergic/Immunologic Allergic/Immunologic ED: Denies urticaria EXAM Physical Exam Narrative Exam Narrative: Regular male no acute distress vital signs stable afebrile. Blood pressure is elevated at 131/104. Pulse elevated 118. H EENT exam unremarkable. Moist remembers. Neck nontender no lymphadenopathy. Lungs clear to auscultation bilaterally. Heart regular rhythm rate about 110 no murmur. Abdomen soft nontender. Moving all 4 extremities. Nontender no edema. Neurologically awake and alert. No focal motor deficits. Const Vital Signs: 05/02/21 13:35 Temperature 96.7 F L Temperature Source Temporal Pulse Rate 118 H Respiratory Rate 16 Blood Pressure 131/104 H Blood Pressure Mean 113 Positive well nourished and well developed; Negative for obese, cachectic, contractures or unkempt General Appearance ED: well developed and NAD; Negative for unkempt, cachectic, contractures or pallor Nutritional Appearance: Negative for cachectic or obese HEENT Reports moist mucous membranes normocephalic and atraumatic Eyes PERRL and EOMs intact bilaterally Neck no lymphadenopathy, supple and no JVD General: Negative for tenderness Resp normal respiratory effort and clear to auscultation bilaterally Auscultation: Negative for rales, rhonchi or wheezes Cardio S1 normal heart sound, S2 normal heart sound and no murmurs Rate: regular rate Rhythm: regular rhythm GI non-tender, non-distended and no masses Inspection: Negative for abdominal distention Auscultation: normoactive bowel sounds Palpation: soft; Negative for tender or guarding Back/Spine no CVA tenderness General Back: Negative for CVA tenderness Extremity normal to inspection General Extremety ED: Negative for edema or tenderness General Extremity: Negative for edema Neuro oriented x3 and CN's II-XII intact bilaterally Sensorium / Orientation: alert, oriented to person, oriented to place and oriented to time; Negative for orientation impaired, confused, lethargic or stuporous Motor Exam: strength 5/5 throughout Psych mental status grossly normal, thought process normal, cooperative, affect normal, speech normal and activity/motor behavior normal Appearance: Negative for unkempt Skin General Skin Exam: Negative for jaundice or pallor Lesions: no lesions Rashes: no rashes MDM MDM MDM Narrative Medical decision making narrative: 40-year-old male with acute anxiety. Will be given p.o. Ativan. Discharged home. Otherwise exam normal. Follow-up with his primary care provider about anxiety treatments and/or if he needs to be on medications for blood pressure. Discharge Plan Triage Chief Complaint: Anxiety ED Provider: Noé Harkins Dx/Rx/DC Orders Instructions: ED Anxiety Reaction, ED Panic Attack Prescriptions: New lorazepam [Ativan] 1 mg tablet 1 mg PO DAILY PRN (Reason: anxiety) Qty: 5 RF: 0 No Action sulfamethoxazole-trimethopri m 1 TABLET tablet 1 tab PO BID Qty: 10 RF: 0 diphenhydramine HCl [Banophen] 25 MG capsule 25 mg PO TID PRN PRN (Reason: Itching) Qty: 12 RF: 0 meloxicam 15 MG tablet 15 mg PO DAILY Qty: 10 RF: 0 cyclobenzaprine 10 MG tablet 10 mg PO TID PRN (Reason: Muscle Spasm) Qty: 20 RF: 0 Primary Care Provider: Peyton Dickens NP Referrals: 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, COUNTY ASSESSOR-C [Primary Care Provider] - 1 Week Activity Restrictions/Additional Instructions: Use the Ativan as needed if you are having an anxiety. Do not drink or drive if using the Ativan. It may make you sleepy. Follow-up with your primary care provider to discuss with her if you need to be started on blood pressure medications or long-term anxiety meds. Log your blood pressures twice daily and show her those readings so she can make informed decision if you need to be started on blood pressure medication. Consider other options on top of medication for anxiety relief such as exercise, walking, reading, counseling or yoga or meditation. Disposition Disposition: Home, Self Care What to do if you have Problems For any increased pain, shortness of breath, bleeding, nausea or vomiting, chest pain, or any unexpected problems, contact your Primary Care Provider. Call [facility] ([phone]) or report to the closest Emergency Room. Call 911 if necessary. 05/02/21 1427 <Electronically signed by Noé Harkins MD> Cosigner Signature (if applicable): CC: COUNTY ASSESSORSisi Dickens Signed Peyton Dickens ELECTRIC PILE DRIVER OPERATOR Work Phone: Start: 09-28-2018 End: 09-28-2018 PT D/C Summary (1) Comments: See Note; NOTES: [facility] [address] [place] [address]. [address] [place] [address] / REHABILITATION SERVICES DISCHARGE SUMMARY MR#: [id number] Acct: [id number] Name: MELISSA UP Rep #: [id number] : 1980 38 From: Melissa Bower PT, Cert. T, OCS Referring DrJey: SHEKHAR Dickens Status: REG RCR Insurance: [facility] SEL[employer] PAY INSURANCE HP - PT D/C Summary It has been my pleasure to treat MELISSA UP under orders from Peyton Dickens NP, for the diagnosis of LEFT HIP PAIN for a total of 6 visit(s). Discharge Date: 09/27/18 Please see the following information for a summary of their discharge status. - Subjective Subjective: Doing good ..ready for d/c. Able to do my job demands without proble. Patient has TENS unit and stick at home. - Pain Bilateral Lower Extremity Pain Intensity (Out of 10): 0 - Overall Improvement % Improvement: 75 - Objective Objective/Function: POSTURE:WFL. PALAPTION: mild quads. FLEXABLITY: QUADS WNL. MMT: QUADS/HAMS 4/5. GAIT : NORMAL IAM - Goals Goal 1:: Patient to be Independant with HEP Goal Progress: Goal Met Goal 2:: Patient to be decrease symptoms by 50% or greater to imptove standing. Goal Progress: Goal Met Goal 3:: Patient to normailzie gait Goal Progress: Goal Met Goal 4:: Patient to improve LFES BY 10 points or greater to improve function Goal Progress: Goal Met Goal 5:: Patient able to perform ADL'S and job demnads with min limitaions Goal Progress: Goal Met - Plan Plan: D/C TO HEP - D/C Information Discharge Comments: MET If there are questions or concerns regarding this patient's physical therapy, please feel free to call me at [phone]. Thank you for the referral of this patient. Sincerely, Melissa Bower PT, Cert T, OCS <Electronically signed by Zev Moscoso PT. CHASE, OCS> 09/28/18 0922 CC: SHEKHAR Dicekns LANDEN Signed Peyton Dickens Start: 09-10-2018 End: 09-10-2018 Inital Evaluation (1) - PT Comments: See Note; NOTES: [facility] [address] [place] [address] [address] [place] [address] / REHABILITATION SERVICES INITIAL EVALUATION MR#: [id number] Acct: [id number] Name: MELISSA UP Rep #: [id number] : 1980 38 From: Zev Moscoso PT. T, OCS Referring Dr.: SHEKHAR Dickens Status: REG RCR Insurance: [facility] SELF PAY INSURANCE Patient's Visit Information MELISSA UP is a 38 year old M referred to Physical Therapy by Peyton Dickens NP with a diagnosis of LEFT HIP PAIN. Date of Evaluation: 09/10/18 Physical Therapist: Melissa Bower PT, Cert T, OCS - Visit Plan Duration: 4 Weeks Plan: INITIATE MODALTIES ,STRETCHINH ,LUMBAR ROM,STRENGTHENING - Subjective Findings: This 38 y/o male presents to physicla therapy with left hip pain. Patient has pain distal quadsriceps ,feels very tight stiff ,burning sensation. Patient tried PT in past in May but pain lateral hip region. Return to MD resumed PT. 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 Patient sleeping okay at night. Denies parathesia/tingling. Bowel/bladder-. Coughing/sneezing-. Patient symptoms affect QOL and function. Patient symptpoms affect job demands. SOCIAL: single. VOCATION: [employer] - Pain Bilateral Lower Extremity Pain Intensity (Out of 10): 8 Pain Intensity Range: 10 Comment: thigh - Objective POSTURE: mild foward posture. GAIT: ambulates with antalgic right side. PALAPTION: tender mid Quad. NEURO: c/o burning thighs. FLEXABLITY: hams min tight,quads min tight,IR mod tight. MMT: quads/hams 4/5,hip 4/5,hip abd 4/5. LUMBAR ROM: min loss,ext min/mod loss,side glides min loss. INTACT HEEL TOE - Special Tests L/S Slump test left side: Negative L/S Slump test right side: Negative L/S Left Straight Leg Raise: Negative L/S Right Straight Leg Raise: Negative L/S Left Femoral Nerve Tension: Negative L/S Right Femoral Nerve Tension: Negative Lumbar Standing: Flexion - Mechanical Response: No effect Lumbar Standing: Flexion - Symptoms During Testing: Increases Lumbar Standing: Flexion - Symptoms After Testing: Worse Lumbar Standing: Extension - Mechanical Response: No effect Lumbar Standing: Extension - Symptoms During Testing: Increases Lumbar Standing: Extension - Symptoms After Testing: Worse Lumbar Lying: Flexion - Mechanical Response: No effect Lumbar Lying: Flexion - Symptoms During Testing: No effect Lumbar Lying: Flexion - Symptoms After Testing: No effect Lumbar Lying: Extension - Mechanical Response: No effect Lumbar Lying: Extension - Symptoms During Testing: No effect Lumbar Lying: Extension - Symptoms After Testing: No effect R Hip Scour: Negative R Hip Quadrant - Intraarticular Pathology: Negative R Hip Feng - IT Band: Negative L Hip Scour: Negative L Hip Quadrant - Intraarticular Pathology: Negative L Hip Feng - IT Band: Negative - Goals Goal 1:: Patient to be Independant with HEP Goal Time Frame: 4-6 Weeks Goal 2:: Patient to be decrease symptoms by 50% or greater to imptove standing. Goal Time Frame: 4-6 Weeks Goal 3:: Patient to normailzie gait Goal Time Frame: 4-6 Weeks Goal 4:: Patient to improve LFES BY 10 points or greater to improve function Goal Time Frame: 4-6 Weeks Goal 5:: Patient able to perform ADL'S and job demnads with min limitaions Goal Time Frame: 4-6 Weeks - Rehabilitation Potential Physical Therapy Diagnosis: This patient has bilateral thigh pain and burning symptoms with standing,walking and during job demnads sitting is typical better. Etiology is uncertain due to unload symptoms better,tender thigh with deep pressure. Rehabilitation Potential: Good - Anticipated Interventions Patient/Client Instruction: Educate patient on: Condition, Plan of Care For the Purpose of:: To decrease pain, To increase ROM, To improve muscle performance and motor function, To improve ability to perform ADL's, To increase tolerance to activity/condition/position, To improve ability of physical actions for home/community/work/leisure, To improve health of tissue, To decrease soft tissue restriction, To increase flexibility/ROM, To improve ability to perform tasks related to life management Therapeutic Exercise to Include: Strength training, Postural training, Flexibilty training, Active ROM, Dynamic Lumbar Stabilization Comment: LE For the Purpose of:: To decrease pain, To increase ROM, To improve muscle performance and motor function, To improve ability to perform ADL's, To improve ability of physical actions for home/community/work/leisure, To improve health of tissue, To decrease soft tissue restriction, To increase flexibility/ROM, To improve ability to perform tasks related to life management TENS: Yes IF ES: Yes Cryotherapy (ice pack, ice massage): Yes Thermo therapy (hot pack): Yes For the Purpose of:: To decrease pain, To increase ROM, To improve nutrient delivery to tissue, To increase oxygenation perfusion, To improve health of tissue, To decrease soft tissue restriction Thank you for the opportunity to evaluate your patient. For Medicare and Medicare HMO plans, please review the plan of care and approve it. It will need to be FAXED BACK to us at [phone] for Medicare purposes. For Medicare only, by signing this I certify the plan of care. Please let me know if there are questions or concerns regarding this plan of care. Physician Signature: ___Date: <Electronically signed by Melissa Bower PT, Cert. T, OCS> 09/10/18 1905 CC: COUNTY ASSESSOR Peyton Dickens LANDEN Signed Peyton Dickens Start: 04-27-2018 End: 04-27-2018 Inital Evaluation (1) - PT Comments: See Note; NOTES: [facility] [address] [facility] [place] [address] Fax REHABILITATION SERVICES INITIAL EVALUATION MR#: [id number] Acct: [id number] Name: MELISSA UP Rep #: [id number] : 1980 37 From: Kayode Rosa PT, ATC Referring Dr.: 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 Status: REG RCR Insurance: [facility] SELF PAY INSURANCE Patient's Visit Information MELISSA UP is a 37 year old M referred [...] sleep secondary to pain. Pt works at [employer] and has been limited secondary to pain. [...] to be FAXED BACK to us at [phone] for Medicare purposes. For Medicare only, by signing this I certify the plan of care. Please let me know if there are questions or concerns regarding this plan of care. Physician Signature: ___Date: <Electronically signed by Kayode Rosa PT, ATC> 04/27/18 1333 CC: Peyton Dickens NP [facility] Signed Peyton Dickens Start: 04-23-2018 End: 04-23-2018 Discharge Instruction Comments: See Note; NOTES: [facility] Medical Records Department [address] [address] Discharge Instruction 04/23/18 0626 MR#: [id number] Acct: [id number] Name: MELISSA UP Rep #: [id number] : 1980 37 From: Gabriele Dela Cruz MD PCP: Peyton Dickens NP Status: REG ER ED Disposition - Plan for ED Patient: Chief Complaint: Lower Extremity Injury Instructions: ED Strain Muscle Ext Prescriptions: Cyclobenzaprine [Flexeril] 10 mg PO TID PRN #20 tab PRN Reason: Muscle Spasm Referrals: Peyton Dickens, COUNTY ASSESSOR-C [Primary Care Provider] - What to do if you have Problems For any increased pain, shortness of breath, bleeding, nausea or vomiting, chest pain, or any unexpected problems, contact your Primary Care Provider. Call [facility] ([phone]) or report to the closest Emergency Room. Call 911 if necessary. 04/23/18626 <Electronically signed by Gabriele Dela Cruz MD> Date Gabriele Dela Cruz MD Cosigner Signature (If Indicated): Date CC: Peyton Dickens Start: 04-23-2018 End: 04-23-2018 Emergency Department Summary Comments: See Note; NOTES: [facility] Medical Records Department [address] [place] [address] Emergency Department Summary 04/23/18 0623 MR#: [id number] Acct: [id number] Name: MELISSA UP Rep #: [id number] : 1980 37 From: Gabriele Dela Cruz [...] hip pain This note was generated with [employer] dictation software. It may contain incorrect words, spelling, and punctuation that were not noted in review of the chart prior to signing ED Disposition - Plan for ED Patient: Chief Complaint: Lower Extremity Injury Referrals: Peyton Dickens, SHEKHAR-C [Primary Care Provider] - What to do if you have Problems For any increased pain, shortness of breath, bleeding, nausea or vomiting, chest pain, or any unexpected problems, contact your Primary Care Provider. Call [facility] ([phone]) or report to the closest Emergency Room. Call 911 if necessary. 04/23/18 7807 <Electronically signed by Gabriele Dela Cruz MD> Date Gabriele Dela Cruz MD Cosigner Signature (If Indicated): Date CC: Peyton Dickens NP Peyton Chrissie Start: 04-23-2018 End: 05-06-2018 HIP, UNI W/ Pelvis 2-3 Views Comments: See Note; NOTES: [facility] Imaging Services [address] [place] [address] HIP, UNI W/ Pelvis 2-3 Views MR#: [id number] Acct: [id number] Name: MELISSA UP Rep #: [id number] : 1980 37 From: Estevan Cunha PCP: Peyton Dickens NP Status: DEP ER Study: HIP, UNI W/ Pelvis 2-3 Views Date of Exam: 04/23/18 Exam# [id number] Ordering Dr: Gabriele Dela Cruz MD STUDY: [...] Peyton Dickens NP; Gabriele Dela Cruz MD Billboard Poster Helper: Signed Peyton Dickens Start: 04-21-2018 End: 04-21-2018 Emergency Department Summary Comments: See Note; NOTES: [facility] Medical Records Department [address] [place] [address] Emergency Department Summary 04/21/181952 MR#: [id number] Acct: [id number] Name: MELISSA UP Rep #: [id number] : 1980 37 From: Hiram Hardy DO [...] left hip This note was generated with [employer] dictation software. It may contain incorrect words, [...] problems, contact your Primary Care Provider. Call [facility] ([phone]) or report to the closest Emergency Room. Call 911 if necessary. 04/21/182000 <Electronically signed by Hiram Hardy DO> Date Hiram Hardy DO Cosigner Signature (If Indicated): Date CC: Peyton Dickens Start: 04-17-2018 End: 04-18-2018 HIP, UNI W/ Pelvis 2-3 Views Comments: See Note; NOTES: [facility] Imaging Services [address] [place] [id number] HIP, UNI W/ Pelvis 2-3 Views MR#: [id number] Acct: [id number] Name: MELISSA UP Rep #: [id number] : 1980 M 37 From: Cait Villagran MD PCP: Care Physician, No Primary Status: REG CLI Study: HIP, UNI W/ Pelvis 2-3 Views Date of Exam: 04/17/18 Exam# [id number] Ordering Dr: 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 STUDY: X-RAY - LEFT HIP REASON FOR [...] , Service support , CC: 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; No 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: Signed Peyton Dickens Work Phone: left testicle Selina goldberg Plan of Treatment Date Care Activity Detail Author Start: 05-12-2021 Procedure Education Eprescribed prescriptions (G8553) [facility] Work Phone: Start: 07-10-2020 Nursing Care Education Histofreeze - Wart [facility] Work Phone: Start: 07-10-2020 Patient Education Plantar Warts *: plantar wart [facility]; [facility] Work Phone: Start: 07-10-2020 Procedure Education Eprescribed prescriptions (G8553) [facility]; [facility] Work Phone: Start: 07-10-2020 Provider Instructions for Treatment Follow up if no improvement or if symptoms worsen [facility] Work Phone: Start: 07-06-2020 Assay of thyroid stimulating hormone tsh TSH (28897) [facility]; [facility] Work Phone: Start: 07-06-2020 TSH Qn TSH (90937) [facility]; [facility] Work Phone: Start: 07-06-2020 Blood count complete auto&auto difrntl wbc CBC, Platelets & Auto Diff (45864) [facility]; [facility] Work Phone: Start: 07-06-2020 Comprehensive metabolic panel Metabolic Panel, Comprehensive (50078) [facility]; [facility] Work Phone: Start: 07-06-2020 Assay of blood/uric acid URIC ACID BLOOD (15730) [facility]; [facility] Work Phone: Start: 07-06-2020 Procedure Education Eprescribed prescriptions (G8553) [facility]; [facility] Work Phone: Start: 07-06-2020 Provider Instructions for Treatment 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 Monday this week for plantar wart after 1pm, call or leave for pt [facility] Work Phone: Start: 02-04-2020 Procedure Education Eprescribed prescriptions (G8553) [facility] Work Phone: Start: 02-04-2020 Provider Instructions for Treatment [facility] Work Phone: Start: 01-27-2020 Procedure Education Eprescribed prescriptions (G8553) [facility] Work Phone: Start: 01-27-2020 Provider Instructions for Treatment Follow up in 1 week [facility] Work Phone: Start: 01-04-2020 25 hydroxy includes fractions if performed CALCIFEDIOL (32401) [facility] Work Phone: Start: 01-04-2020 Lipid panel LIPID PANEL (87670) [facility] Work Phone: Start: 01-04-2020 Comprehensive metabolic panel Metabolic Panel, Comprehensive (43073) [facility] Work Phone: Start: 01-04-2020 Assay of thyroid stimulating hormone tsh TSH (32541) [facility]; [facility] Work Phone: Start: 01-04-2020 TSH Qn TSH (28002) [facility] Work Phone: Start: 12-30-2019 Procedure Education Eprescribed prescriptions (G8553) [facility] Work Phone: Start: 12-30-2019 Provider Instructions for Treatment [facility] Work Phone: Start: 12-30-2019 25 hydroxy includes fractions if performed CALCIFEDIOL (72697) [facility] Work Phone: Start: 12-30-2019 Lipid panel LIPID PANEL (07731) [facility] Work Phone: Start: 07-01-2019 Procedure Education Eprescribed prescriptions (G8553) [facility] Work Phone: Start: 07-01-2019 Provider Instructions for Treatment [facility] Work Phone: Start: 05-20-2019 Procedure Education Eprescribed prescriptions (G8553) [facility] Work Phone: Start: 05-20-2019 Provider Instructions for Treatment Follow up in 6 weeks [facility] Work Phone: Start: 05-20-2019 25 hydroxy includes fractions if performed CALCIFEDIOL (87302) [facility] Work Phone: Start: 05-20-2019 Comprehensive metabolic panel Metabolic Panel, Comprehensive (96029) [facility] Work Phone: Start: 05-20-2019 Assay of thyroid stimulating hormone tsh TSH (85534) [facility]; [facility] Work Phone: Start: 05-20-2019 TSH Qn TSH (31148) [facility] Work Phone: Start: 05-20-2019 Blood count complete auto&auto difrntl wbc CBC, Platelets & Auto Diff (44376) [facility] Work Phone: Start: 05-20-2019 Lipid panel LIPID PANEL (07172) [facility] Work Phone: Start: 11-05-2018 Procedure Education Eprescribed prescriptions (G8553) [facility] Work Phone: Start: 11-05-2018 Provider Instructions for Treatment [facility] Work Phone: Start: 11-05-2018 TSH Qn TSH (99780) [facility] Work Phone: Start: 11-05-2018 Blood count complete auto&auto difrntl wbc CBC, Platelets & Auto Diff (21890) [facility] Work Phone: Start: 11-05-2018 Comprehensive metabolic panel Metabolic Panel, Comprehensive (42287) [facility] Work Phone: Start: 05-04-2018 Procedure Education Eprescribed prescriptions (G8553) [facility] Work Phone: Start: 05-04-2018 Provider Instructions for Treatment [facility] Work Phone: Start: 04-27-2018 Procedure Education Eprescribed prescriptions (G8553) [facility] Work Phone: Start: 04-27-2018 Provider Instructions for Treatment Reviewed Diagnostic Tests [facility] Work Phone: Start: 04-24-2018 Procedure Education Eprescribed prescriptions (G8553) [facility] Work Phone: Start: 04-24-2018 Provider Instructions for Treatment [facility] Work Phone: Start: 04-17-2018 Provider Instructions for Treatment Follow up in 1 week [facility] Work Phone: Start: 04-17-2018 Iadna s aureus methicillin resist amp probe tq MRSA Culture (97184) [facility] Work Phone: Payers Date Payer Category Payer Unknown [id number] 1980 Unknown [id number] Unknown [facility] Social History Date Type Detail Facility Alcohol use: Current every day smoker [facility] Work Phone: Instructions Note Date & Type Note Facility [facility] Work Phone: Instructions Note Date & Type Note Facility [facility]; [facility] Work Phone: Instructions Note Date & Type Note Facility [facility]; [facility] Work Phone: Family History Unknown Family Member Name Dates Details Maternal Aunt Comments:colon cancer, lung cancer, diabetes Status:Active Maternal Uncle Comments:prostate cancer, di abetes Status:Active Mother Comments:breast cancer, diab etes, asthma Status:Active Unknown Family Member Name Dates Details Maternal Aunt Comments:colon cancer, lung cancer, diabetes Status:Active Maternal Uncle Comments:prostate cancer, di abetes Status:Active Mother Comments:breast cancer, diab etes, asthma Status:Active Unknown Family Member Name Dates Details Maternal Aunt Comments:colon cancer, lung cancer, diabetes Status:Active Maternal Uncle Comments:prostate cancer, di abetes Status:Active Mother Comments:breast cancer, diab etes, asthma Status:Active Unknown Family Member Name Dates Details Maternal Aunt Comments:colon cancer, lung cancer, diabetes Status:Active Maternal Uncle Comments:prostate cancer, di abetes Status:Active Mother Comments:breast cancer, diab etes, asthma Status:Active Unknown Family Member Name Dates Details Maternal Aunt Comments:colon cancer, lung cancer, diabetes Status:Active Maternal Uncle Comments:prostate cancer, di abetes Status:Active Mother Comments:breast cancer, diab etes, asthma Status:Active Unknown Family Member Name Dates Details Maternal Aunt Comments:colon cancer, lung cancer, diabetes Status:Active Maternal Uncle Comments:prostate cancer, di abetes Status:Active Mother Comments:breast cancer, diab etes, asthma Status:Active Unknown Family Member Name Dates Details Maternal Aunt Comments:colon cancer, lung cancer, diabetes Status:Active Maternal Uncle Comments:prostate cancer, di abetes Status:Active Mother Comments:breast cancer, diab etes, asthma Status:Active Unknown Family Member Name Dates Details Maternal Aunt Comments:colon cancer, lung cancer, diabetes Status:Active Maternal Uncle Comments:prostate cancer, di abetes Status:Active Mother Comments:breast cancer, diab etes, asthma Status:Active Unknown Family Member Name Dates Details Maternal Aunt Comments:colon cancer, lung cancer, diabetes Status:Active Maternal Uncle Comments:prostate cancer, di abetes Status:Active Mother Comments:breast cancer, diab etes, asthma Status:Active Unknown Family Member Name Dates Details Maternal Aunt Comments:colon cancer, lung cancer, diabetes Status:Active Maternal Uncle Comments:prostate cancer, di abetes Status:Active Mother Comments:breast cancer, diab etes, asthma Status:Active Unknown Family Member Name Dates Details Maternal Aunt Comments:colon cancer, lung cancer, diabetes Status:Active Maternal Uncle Comments:prostate cancer, di abetes Status:Active Mother Comments:breast cancer, diab etes, asthma Status:Active Unknown Family Member Name Dates Details Maternal Aunt Comments:colon cancer, lung cancer, diabetes Status:Active Maternal Uncle Comments:prostate cancer, di abetes Status:Active Mother Comments:breast cancer, diab etes, asthma Status:Active Unknown Family Member Name Dates Details Maternal Aunt Comments:colon cancer, lung cancer, diabetes Status:Active Maternal Uncle Comments:prostate cancer, di abetes Status:Active Mother Comments:breast cancer, diab etes, asthma Status:Active Unknown Family Member Name Dates Details Maternal Aunt Comments:colon cancer, lung cancer, diabetes Status:Active Maternal Uncle Comments:prostate cancer, di abetes Status:Active Mother Comments:breast cancer, diab etes, asthma Status:Active Unknown Family Member Name Dates Details Maternal Aunt Comments:colon cancer, lung cancer, diabetes Status:Active Maternal Uncle Comments:prostate cancer, di abetes Status:Active Mother Comments:breast cancer, diab etes, asthma Status:Active Instructions Name Dates Details Current smoker : How to acce ss health information online Indication:Current smoker Current smoker : How to acce ss health information online - Detail Indication:Current smoker Current smoker : Patient Ins tructions Indication:Current smoker Name Dates Details Current smoker : How to acce ss health information online Indication:Current smoker Current smoker : How to acce ss health information online - Detail Indication:Current smoker Current smoker : Patient Ins tructions Indication:Current smoker Name Dates Details Current smoker : How to acce ss health information online Indication:Current smoker Current smoker : How to acce ss health information online - Detail Indication:Current smoker Current smoker : Patient Ins tructions Indication:Current smoker Name Dates Details How to access health informa tion online Indication:BMI 26.0-26.9,adult Start:05-Nov-2018 Instruction Type:Patient Education How to access health informa tion online - Detail Indication:BMI 26.0-26.9,adult Start:05-Nov-2018 Instruction Type:Patient Education Patient Instructions Indication:Staph infection Start:05-Nov-2018 Instruction Type:Provider Instructions for Treatment How to access health informa tion online Indication:Current smoker Start:04-May-2018 Instruction Type:Patient Education How to access health informa tion online - Detail Indication:Current smoker Start:04-May-2018 Instruction Type:Patient Education Patient Instructions Indication:Current smoker Start:04-May-2018 Instruction Type:Provider Instructions for Treatment How to access health informa tion online Indication:Current smoker Start:27-Apr-2018 Instruction Type:Patient Education How to access health informa tion online - Detail Indication:Current smoker Start:27-Apr-2018 Instruction Type:Patient Education Patient Instructions Indication:Current smoker Start:27-Apr-2018 Instruction Type:Provider Instructions for Treatment How to access health informa tion online Indication:Current smoker Start:24-Apr-2018 Instruction Type:Patient Education How to access health informa tion online - Detail Indication:Current smoker Start:24-Apr-2018 Instruction Type:Patient Education Patient Instructions Indication:Current smoker Start:24-Apr-2018 Instruction Type:Provider Instructions for Treatment How to access health informa tion online Indication:Current smoker Start:06-Apr-2018 Instruction Type:Patient Education How to access health informa tion online - Detail Indication:Current smoker Start:06-Apr-2018 Instruction Type:Patient Education Patient Instructions Indication:Current smoker Start:06-Apr-2018 Instruction Type:Provider Instructions for Treatment How to access health informa tion online Indication:Current smoker Start:04-Apr-2018 Instruction Type:Patient Education How to access health informa tion online - Detail Indication:Current smoker Start:04-Apr-2018 Instruction Type:Patient Education Patient Instructions Indication:Current smoker Start:04-Apr-2018 Instruction Type:Provider Instructions for Treatment Name Dates Details How to access health informa tion online Indication:Current smoker Start:30-Dec-2019 Instruction Type:Patient Education How to access health informa tion online - Detail Indication:Current smoker Start:30-Dec-2019 Instruction Type:Patient Education Patient Instructions Indication:Current smoker Start:30-Dec-2019 Instruction Type:Provider Instructions for Treatment How to access health informa tion online Indication:Current smoker Start:01-Jul-2019 Instruction Type:Patient Education How to access health informa tion online - Detail Indication:Current smoker Start:01-Jul-2019 Instruction Type:Patient Education Patient Instructions Indication:BMI 24.0-24.9, adult Start:01-Jul-2019 Instruction Type:Provider Instructions for Treatment How to access health informa tion online Indication:Current smoker Start:20-May-2019 Instruction Type:Patient Education How to access health informa tion online - Detail Indication:Current smoker Start:20-May-2019 Instruction Type:Patient Education Patient Instructions Indication:BMI 24.0-24.9, adult Start:20-May-2019 Instruction Type:Provider Instructions for Treatment How to access health informa tion online Indication:BMI 26.0-26.9,adult Start:05-Nov-2018 Instruction Type:Patient Education How to access health informa tion online - Detail Indication:BMI 26.0-26.9,adult Start:05-Nov-2018 Instruction Type:Patient Education Patient Instructions Indication:Staph infection Start:05-Nov-2018 Instruction Type:Provider Instructions for Treatment How to access health informa tion online Indication:Current smoker Start:04-May-2018 Instruction Type:Patient Education How to access health informa tion online - Detail Indication:Current smoker Start:04-May-2018 Instruction Type:Patient Education Patient Instructions Indication:Current smoker Start:04-May-2018 Instruction Type:Provider Instructions for Treatment How to access health informa tion online Indication:Current smoker Start:27-Apr-2018 Instruction Type:Patient Education How to access health informa tion online - Detail Indication:Current smoker Start:27-Apr-2018 Instruction Type:Patient Education Patient Instructions Indication:Current smoker Start:27-Apr-2018 Instruction Type:Provider Instructions for Treatment How to access health informa tion online Indication:Current smoker Start:24-Apr-2018 Instruction Type:Patient Education How to access health informa tion online - Detail Indication:Current smoker Start:24-Apr-2018 Instruction Type:Patient Education Patient Instructions Indication:Current smoker Start:24-Apr-2018 Instruction Type:Provider Instructions for Treatment How to access health informa tion online Indication:Current smoker Start:06-Apr-2018 Instruction Type:Patient Education How to access health informa tion online - Detail Indication:Current smoker Start:06-Apr-2018 Instruction Type:Patient Education Patient Instructions Indication:Current smoker Start:06-Apr-2018 Instruction Type:Provider Instructions for Treatment How to access health informa tion online Indication:Current smoker Start:04-Apr-2018 Instruction Type:Patient Education How to access health informa tion online - Detail Indication:Current smoker Start:04-Apr-2018 Instruction Type:Patient Education Patient Instructions Indication:Current smoker Start:04-Apr-2018 Instruction Type:Provider Instructions for Treatment Name Dates Details How to access health informa tion online Indication:Current smoker Start:30-Dec-2019 Instruction Type:Patient Education How to access health informa tion online - Detail Indication:Current smoker Start:30-Dec-2019 Instruction Type:Patient Education Patient Instructions Indication:Vitamin D deficiency Start:30-Dec-2019 Instruction Type:Provider Instructions for Treatment How to access health informa tion online Indication:Current smoker Start:01-Jul-2019 Instruction Type:Patient Education How to access health informa tion online - Detail Indication:Current smoker Start:01-Jul-2019 Instruction Type:Patient Education Patient Instructions Indication:BMI 24.0-24.9, adult Start:01-Jul-2019 Instruction Type:Provider Instructions for Treatment How to access health informa tion online Indication:Current smoker Start:20-May-2019 Instruction Type:Patient Education How to access health informa tion online - Detail Indication:Current smoker Start:20-May-2019 Instruction Type:Patient Education Patient Instructions Indication:BMI 24.0-24.9, adult Start:20-May-2019 Instruction Type:Provider Instructions for Treatment How to access health informa tion online Indication:BMI 26.0-26.9,adult Start:05-Nov-2018 Instruction Type:Patient Education How to access health informa tion online - Detail Indication:BMI 26.0-26.9,adult Start:05-Nov-2018 Instruction Type:Patient Education Patient Instructions Indication:Staph infection Start:05-Nov-2018 Instruction Type:Provider Instructions for Treatment How to access health informa tion online Indication:Current smoker Start:04-May-2018 Instruction Type:Patient Education How to access health informa tion online - Detail Indication:Current smoker Start:04-May-2018 Instruction Type:Patient Education Patient Instructions Indication:Current smoker Start:04-May-2018 Instruction Type:Provider Instructions for Treatment How to access health informa tion online Indication:Current smoker Start:27-Apr-2018 Instruction Type:Patient Education How to access health informa tion online - Detail Indication:Current smoker Start:27-Apr-2018 Instruction Type:Patient Education Patient Instructions Indication:Current smoker Start:27-Apr-2018 Instruction Type:Provider Instructions for Treatment How to access health informa tion online Indication:Current smoker Start:24-Apr-2018 Instruction Type:Patient Education How to access health informa tion online - Detail Indication:Current smoker Start:24-Apr-2018 Instruction Type:Patient Education Patient Instructions Indication:Current smoker Start:24-Apr-2018 Instruction Type:Provider Instructions for Treatment How to access health informa tion online Indication:Current smoker Start:06-Apr-2018 Instruction Type:Patient Education How to access health informa tion online - Detail Indication:Current smoker Start:06-Apr-2018 Instruction Type:Patient Education Patient Instructions Indication:Current smoker Start:06-Apr-2018 Instruction Type:Provider Instructions for Treatment How to access health informa tion online Indication:Current smoker Start:04-Apr-2018 Instruction Type:Patient Education How to access health informa tion online - Detail Indication:Current smoker Start:04-Apr-2018 Instruction Type:Patient Education Patient Instructions Indication:Current smoker Start:04-Apr-2018 Instruction Type:Provider Instructions for Treatment Name Dates Details How to access health informa tion online Indication:BMI 25.0-25.9,adult Start:27-Jan-2020 Instruction Type:Patient Education How to access health informa tion online - Detail Indication:BMI 25.0-25.9,adult Start:27-Jan-2020 Instruction Type:Patient Education Patient Instructions Indication:BMI 25.0-25.9,adult Start:27-Jan-2020 Instruction Type:Provider Instructions for Treatment How to access health informa tion online Indication:Current smoker Start:30-Dec-2019 Instruction Type:Patient Education How to access health informa tion online - Detail Indication:Current smoker Start:30-Dec-2019 Instruction Type:Patient Education Patient Instructions Indication:Vitamin D deficiency Start:30-Dec-2019 Instruction Type:Provider Instructions for Treatment How to access health informa tion online Indication:Current smoker Start:01-Jul-2019 Instruction Type:Patient Education How to access health informa tion online - Detail Indication:Current smoker Start:01-Jul-2019 Instruction Type:Patient Education Patient Instructions Indication:BMI 24.0-24.9, adult Start:01-Jul-2019 Instruction Type:Provider Instructions for Treatment How to access health informa tion online Indication:Current smoker Start:20-May-2019 Instruction Type:Patient Education How to access health informa tion online - Detail Indication:Current smoker Start:20-May-2019 Instruction Type:Patient Education Patient Instructions Indication:BMI 24.0-24.9, adult Start:20-May-2019 Instruction Type:Provider Instructions for Treatment How to access health informa tion online Indication:BMI 26.0-26.9,adult Start:05-Nov-2018 Instruction Type:Patient Education How to access health informa tion online - Detail Indication:BMI 26.0-26.9,adult Start:05-Nov-2018 Instruction Type:Patient Education Patient Instructions Indication:Staph infection Start:05-Nov-2018 Instruction Type:Provider Instructions for Treatment How to access health informa tion online Indication:Current smoker Start:04-May-2018 Instruction Type:Patient Education How to access health informa tion online - Detail Indication:Current smoker Start:04-May-2018 Instruction Type:Patient Education Patient Instructions Indication:Current smoker Start:04-May-2018 Instruction Type:Provider Instructions for Treatment How to access health informa tion online Indication:Current smoker Start:27-Apr-2018 Instruction Type:Patient Education How to access health informa tion online - Detail Indication:Current smoker Start:27-Apr-2018 Instruction Type:Patient Education Patient Instructions Indication:Current smoker Start:27-Apr-2018 Instruction Type:Provider Instructions for Treatment How to access health informa tion online Indication:Current smoker Start:24-Apr-2018 Instruction Type:Patient Education How to access health informa tion online - Detail Indication:Current smoker Start:24-Apr-2018 Instruction Type:Patient Education Patient Instructions Indication:Current smoker Start:24-Apr-2018 Instruction Type:Provider Instructions for Treatment How to access health informa tion online Indication:Current smoker Start:06-Apr-2018 Instruction Type:Patient Education How to access health informa tion online - Detail Indication:Current smoker Start:06-Apr-2018 Instruction Type:Patient Education Patient Instructions Indication:Current smoker Start:06-Apr-2018 Instruction Type:Provider Instructions for Treatment How to access health informa tion online Indication:Current smoker Start:04-Apr-2018 Instruction Type:Patient Education How to access health informa tion online - Detail Indication:Current smoker Start:04-Apr-2018 Instruction Type:Patient Education Patient Instructions Indication:Current smoker Start:04-Apr-2018 Instruction Type:Provider Instructions for Treatment Name Dates Details How to access health informa tion online Indication:BMI 25.0-25.9,adult Start:27-Jan-2020 Instruction Type:Patient Education How to access health informa tion online - Detail Indication:BMI 25.0-25.9,adult Start:27-Jan-2020 Instruction Type:Patient Education Patient Instructions Indication:BMI 25.0-25.9,adult Start:27-Jan-2020 Instruction Type:Provider Instructions for Treatment How to access health informa tion online Indication:Current smoker Start:30-Dec-2019 Instruction Type:Patient Education How to access health informa tion online - Detail Indication:Current smoker Start:30-Dec-2019 Instruction Type:Patient Education Patient Instructions Indication:Vitamin D deficiency Start:30-Dec-2019 Instruction Type:Provider Instructions for Treatment How to access health informa tion online Indication:Current smoker Start:01-Jul-2019 Instruction Type:Patient Education How to access health informa tion online - Detail Indication:Current smoker Start:01-Jul-2019 Instruction Type:Patient Education Patient Instructions Indication:BMI 24.0-24.9, adult Start:01-Jul-2019 Instruction Type:Provider Instructions for Treatment How to access health informa tion online Indication:Current smoker Start:20-May-2019 Instruction Type:Patient Education How to access health informa tion online - Detail Indication:Current smoker Start:20-May-2019 Instruction Type:Patient Education Patient Instructions Indication:BMI 24.0-24.9, adult Start:20-May-2019 Instruction Type:Provider Instructions for Treatment How to access health informa tion online Indication:BMI 26.0-26.9,adult Start:05-Nov-2018 Instruction Type:Patient Education How to access health informa tion online - Detail Indication:BMI 26.0-26.9,adult Start:05-Nov-2018 Instruction Type:Patient Education Patient Instructions Indication:Staph infection Start:05-Nov-2018 Instruction Type:Provider Instructions for Treatment How to access health informa tion online Indication:Current smoker Start:04-May-2018 Instruction Type:Patient Education How to access health informa tion online - Detail Indication:Current smoker Start:04-May-2018 Instruction Type:Patient Education Patient Instructions Indication:Current smoker Start:04-May-2018 Instruction Type:Provider Instructions for Treatment How to access health informa tion online Indication:Current smoker Start:27-Apr-2018 Instruction Type:Patient Education How to access health informa tion online - Detail Indication:Current smoker Start:27-Apr-2018 Instruction Type:Patient Education Patient Instructions Indication:Current smoker Start:27-Apr-2018 Instruction Type:Provider Instructions for Treatment How to access health informa tion online Indication:Current smoker Start:24-Apr-2018 Instruction Type:Patient Education How to access health informa tion online - Detail Indication:Current smoker Start:24-Apr-2018 Instruction Type:Patient Education Patient Instructions Indication:Current smoker Start:24-Apr-2018 Instruction Type:Provider Instructions for Treatment How to access health informa tion online Indication:Current smoker Start:06-Apr-2018 Instruction Type:Patient Education How to access health informa tion online - Detail Indication:Current smoker Start:06-Apr-2018 Instruction Type:Patient Education Patient Instructions Indication:Current smoker Start:06-Apr-2018 Instruction Type:Provider Instructions for Treatment How to access health informa tion online Indication:Current smoker Start:04-Apr-2018 Instruction Type:Patient Education How to access health informa tion online - Detail Indication:Current smoker Start:04-Apr-2018 Instruction Type:Patient Education Patient Instructions Indication:Current smoker Start:04-Apr-2018 Instruction Type:Provider Instructions for Treatment Name Dates Details How to access health informa tion online Indication:Current smoker Start:04-Feb-2020 Instruction Type:Patient Education How to access health informa tion online - Detail Indication:Current smoker Start:04-Feb-2020 Instruction Type:Patient Education Patient Instructions Indication:Current smoker Start:04-Feb-2020 Instruction Type:Provider Instructions for Treatment How to access health informa tion online Indication:BMI 25.0-25.9,adult Start:27-Jan-2020 Instruction Type:Patient Education How to access health informa tion online - Detail Indication:BMI 25.0-25.9,adult Start:27-Jan-2020 Instruction Type:Patient Education Patient Instructions Indication:BMI 25.0-25.9,adult Start:27-Jan-2020 Instruction Type:Provider Instructions for Treatment How to access health informa tion online Indication:Current smoker Start:30-Dec-2019 Instruction Type:Patient Education How to access health informa tion online - Detail Indication:Current smoker Start:30-Dec-2019 Instruction Type:Patient Education Patient Instructions Indication:Vitamin D deficiency Start:30-Dec-2019 Instruction Type:Provider Instructions for Treatment How to access health informa tion online Indication:Current smoker Start:01-Jul-2019 Instruction Type:Patient Education How to access health informa tion online - Detail Indication:Current smoker Start:01-Jul-2019 Instruction Type:Patient Education Patient Instructions Indication:BMI 24.0-24.9, adult Start:01-Jul-2019 Instruction Type:Provider Instructions for Treatment How to access health informa tion online Indication:Current smoker Start:20-May-2019 Instruction Type:Patient Education How to access health informa tion online - Detail Indication:Current smoker Start:20-May-2019 Instruction Type:Patient Education Patient Instructions Indication:BMI 24.0-24.9, adult Start:20-May-2019 Instruction Type:Provider Instructions for Treatment How to access health informa tion online Indication:BMI 26.0-26.9,adult Start:05-Nov-2018 Instruction Type:Patient Education How to access health informa tion online - Detail Indication:BMI 26.0-26.9,adult Start:05-Nov-2018 Instruction Type:Patient Education Patient Instructions Indication:Staph infection Start:05-Nov-2018 Instruction Type:Provider Instructions for Treatment How to access health informa tion online Indication:Current smoker Start:04-May-2018 Instruction Type:Patient Education How to access health informa tion online - Detail Indication:Current smoker Start:04-May-2018 Instruction Type:Patient Education Patient Instructions Indication:Current smoker Start:04-May-2018 Instruction Type:Provider Instructions for Treatment How to access health informa tion online Indication:Current smoker Start:27-Apr-2018 Instruction Type:Patient Education How to access health informa tion online - Detail Indication:Current smoker Start:27-Apr-2018 Instruction Type:Patient Education Patient Instructions Indication:Current smoker Start:27-Apr-2018 Instruction Type:Provider Instructions for Treatment How to access health informa tion online Indication:Current smoker Start:24-Apr-2018 Instruction Type:Patient Education How to access health informa tion online - Detail Indication:Current smoker Start:24-Apr-2018 Instruction Type:Patient Education Patient Instructions Indication:Current smoker Start:24-Apr-2018 Instruction Type:Provider Instructions for Treatment How to access health informa tion online Indication:Current smoker Start:06-Apr-2018 Instruction Type:Patient Education How to access health informa tion online - Detail Indication:Current smoker Start:06-Apr-2018 Instruction Type:Patient Education Patient Instructions Indication:Current smoker Start:06-Apr-2018 Instruction Type:Provider Instructions for Treatment How to access health informa tion online Indication:Current smoker Start:04-Apr-2018 Instruction Type:Patient Education How to access health informa tion online - Detail Indication:Current smoker Start:04-Apr-2018 Instruction Type:Patient Education Patient Instructions Indication:Current smoker Start:04-Apr-2018 Instruction Type:Provider Instructions for Treatment Name Dates Details Patient Instructions Indication:BMI 25.0-25.9,adult Start:06-Jul-2020 Instruction Type:Provider Instructions for Treatment How to Access Health Informa tion Online using Patient Portal and 3rd [employer] Apps Indication:Current smoker Start:06-Jul-2020 Instruction Type:Patient Education How to access health informa tion online Indication:Current smoker Start:04-Feb-2020 Instruction Type:Patient Education How to access health informa tion online - Detail Indication:Current smoker Start:04-Feb-2020 Instruction Type:Patient Education Patient Instructions Indication:Current smoker Start:04-Feb-2020 Instruction Type:Provider Instructions for Treatment How to access health informa tion online Indication:BMI 25.0-25.9,adult Start:27-Jan-2020 Instruction Type:Patient Education How to access health informa tion online - Detail Indication:BMI 25.0-25.9,adult Start:27-Jan-2020 Instruction Type:Patient Education Patient Instructions Indication:BMI 25.0-25.9,adult Start:27-Jan-2020 Instruction Type:Provider Instructions for Treatment How to access health informa tion online Indication:Current smoker Start:30-Dec-2019 Instruction Type:Patient Education How to access health informa tion online - Detail Indication:Current smoker Start:30-Dec-2019 Instruction Type:Patient Education Patient Instructions Indication:Vitamin D deficiency Start:30-Dec-2019 Instruction Type:Provider Instructions for Treatment How to access health informa tion online Indication:Current smoker Start:01-Jul-2019 Instruction Type:Patient Education How to access health informa tion online - Detail Indication:Current smoker Start:01-Jul-2019 Instruction Type:Patient Education Patient Instructions Indication:BMI 24.0-24.9, adult Start:01-Jul-2019 Instruction Type:Provider Instructions for Treatment How to access health informa tion online Indication:Current smoker Start:20-May-2019 Instruction Type:Patient Education How to access health informa tion online - Detail Indication:Current smoker Start:20-May-2019 Instruction Type:Patient Education Patient Instructions Indication:BMI 24.0-24.9, adult Start:20-May-2019 Instruction Type:Provider Instructions for Treatment How to access health informa tion online Indication:BMI 26.0-26.9,adult Start:05-Nov-2018 Instruction Type:Patient Education How to access health informa tion online - Detail Indication:BMI 26.0-26.9,adult Start:05-Nov-2018 Instruction Type:Patient Education Patient Instructions Indication:Staph infection Start:05-Nov-2018 Instruction Type:Provider Instructions for Treatment How to access health informa tion online Indication:Current smoker Start:04-May-2018 Instruction Type:Patient Education How to access health informa tion online - Detail Indication:Current smoker Start:04-May-2018 Instruction Type:Patient Education Patient Instructions Indication:Current smoker Start:04-May-2018 Instruction Type:Provider Instructions for Treatment How to access health informa tion online Indication:Current smoker Start:27-Apr-2018 Instruction Type:Patient Education How to access health informa tion online - Detail Indication:Current smoker Start:27-Apr-2018 Instruction Type:Patient Education Patient Instructions Indication:Current smoker Start:27-Apr-2018 Instruction Type:Provider Instructions for Treatment How to access health informa tion online Indication:Current smoker Start:24-Apr-2018 Instruction Type:Patient Education How to access health informa tion online - Detail Indication:Current smoker Start:24-Apr-2018 Instruction Type:Patient Education Patient Instructions Indication:Current smoker Start:24-Apr-2018 Instruction Type:Provider Instructions for Treatment How to access health informa tion online Indication:Current smoker Start:06-Apr-2018 Instruction Type:Patient Education How to access health informa tion online - Detail Indication:Current smoker Start:06-Apr-2018 Instruction Type:Patient Education Patient Instructions Indication:Current smoker Start:06-Apr-2018 Instruction Type:Provider Instructions for Treatment How to access health informa tion online Indication:Current smoker Start:04-Apr-2018 Instruction Type:Patient Education How to access health informa tion online - Detail Indication:Current smoker Start:04-Apr-2018 Instruction Type:Patient Education Patient Instructions Indication:Current smoker Start:04-Apr-2018 Instruction Type:Provider Instructions for Treatment Name Dates Details Patient Instructions Indication:Current smoker Start:10-Jul-2020 Instruction Type:Provider Instructions for Treatment How to Access Health Informa tion Online using Patient Portal and [employer]rd [employer] Apps Indication:Current smoker Start:10-Jul-2020 Instruction Type:Patient Education Patient Instructions Indication:BMI 25.0-25.9,adult Start:06-Jul-2020 Instruction Type:Provider Instructions for Treatment How to Access Health Informa tion Online using Patient Portal and [employer]rd [employer] Apps Indication:Current smoker Start:06-Jul-2020 Instruction Type:Patient Education How to access health informa tion online Indication:Current smoker Start:04-Feb-2020 Instruction Type:Patient Education How to access health informa tion online - Detail Indication:Current smoker Start:04-Feb-2020 Instruction Type:Patient Education Patient Instructions Indication:Current smoker Start:04-Feb-2020 Instruction Type:Provider Instructions for Treatment How to access health informa tion online Indication:BMI 25.0-25.9,adult Start:27-Jan-2020 Instruction Type:Patient Education How to access health informa tion online - Detail Indication:BMI 25.0-25.9,adult Start:27-Jan-2020 Instruction Type:Patient Education Patient Instructions Indication:BMI 25.0-25.9,adult Start:27-Jan-2020 Instruction Type:Provider Instructions for Treatment How to access health informa tion online Indication:Current smoker Start:30-Dec-2019 Instruction Type:Patient Education How to access health informa tion online - Detail Indication:Current smoker Start:30-Dec-2019 Instruction Type:Patient Education Patient Instructions Indication:Vitamin D deficiency Start:30-Dec-2019 Instruction Type:Provider Instructions for Treatment How to access health informa tion online Indication:Current smoker Start:01-Jul-2019 Instruction Type:Patient Education How to access health informa tion online - Detail Indication:Current smoker Start:01-Jul-2019 Instruction Type:Patient Education Patient Instructions Indication:BMI 24.0-24.9, adult Start:01-Jul-2019 Instruction Type:Provider Instructions for Treatment How to access health informa tion online Indication:Current smoker Start:20-May-2019 Instruction Type:Patient Education How to access health informa tion online - Detail Indication:Current smoker Start:20-May-2019 Instruction Type:Patient Education Patient Instructions Indication:BMI 24.0-24.9, adult Start:20-May-2019 Instruction Type:Provider Instructions for Treatment How to access health informa tion online Indication:BMI 26.0-26.9,adult Start:05-Nov-2018 Instruction Type:Patient Education How to access health informa tion online - Detail Indication:BMI 26.0-26.9,adult Start:05-Nov-2018 Instruction Type:Patient Education Patient Instructions Indication:Staph infection Start:05-Nov-2018 Instruction Type:Provider Instructions for Treatment How to access health informa tion online Indication:Current smoker Start:04-May-2018 Instruction Type:Patient Education How to access health informa tion online - Detail Indication:Current smoker Start:04-May-2018 Instruction Type:Patient Education Patient Instructions Indication:Current smoker Start:04-May-2018 Instruction Type:Provider Instructions for Treatment How to access health informa tion online Indication:Current smoker Start:27-Apr-2018 Instruction Type:Patient Education How to access health informa tion online - Detail Indication:Current smoker Start:27-Apr-2018 Instruction Type:Patient Education Patient Instructions Indication:Current smoker Start:27-Apr-2018 Instruction Type:Provider Instructions for Treatment How to access health informa tion online Indication:Current smoker Start:24-Apr-2018 Instruction Type:Patient Education How to access health informa tion online - Detail Indication:Current smoker Start:24-Apr-2018 Instruction Type:Patient Education Patient Instructions Indication:Current smoker Start:24-Apr-2018 Instruction Type:Provider Instructions for Treatment How to access health informa tion online Indication:Current smoker Start:06-Apr-2018 Instruction Type:Patient Education How to access health informa tion online - Detail Indication:Current smoker Start:06-Apr-2018 Instruction Type:Patient Education Patient Instructions Indication:Current smoker Start:06-Apr-2018 Instruction Type:Provider Instructions for Treatment How to access health informa tion online Indication:Current smoker Start:04-Apr-2018 Instruction Type:Patient Education How to access health informa tion online - Detail Indication:Current smoker Start:04-Apr-2018 Instruction Type:Patient Education Patient Instructions Indication:Current smoker Start:04-Apr-2018 Instruction Type:Provider Instructions for Treatment Name Dates Details Patient Instructions Indication:Current smoker Start:10-Jul-2020 Instruction Type:Provider Instructions for Treatment How to Access Health Informa tion Online using Patient Portal and [employer]rd [employer] Apps Indication:Current smoker Start:10-Jul-2020 Instruction Type:Patient Education Patient Instructions Indication:BMI 25.0-25.9,adult Start:06-Jul-2020 Instruction Type:Provider Instructions for Treatment How to Access Health Informa tion Online using Patient Portal and [employer]rd [employer] Apps Indication:Current smoker Start:06-Jul-2020 Instruction Type:Patient Education How to access health informa tion online Indication:Current smoker Start:04-Feb-2020 Instruction Type:Patient Education How to access health informa tion online - Detail Indication:Current smoker Start:04-Feb-2020 Instruction Type:Patient Education Patient Instructions Indication:Current smoker Start:04-Feb-2020 Instruction Type:Provider Instructions for Treatment How to access health informa tion online Indication:BMI 25.0-25.9,adult Start:27-Jan-2020 Instruction Type:Patient Education How to access health informa tion online - Detail Indication:BMI 25.0-25.9,adult Start:27-Jan-2020 Instruction Type:Patient Education Patient Instructions Indication:BMI 25.0-25.9,adult Start:27-Jan-2020 Instruction Type:Provider Instructions for Treatment How to access health informa tion online Indication:Current smoker Start:30-Dec-2019 Instruction Type:Patient Education How to access health informa tion online - Detail Indication:Current smoker Start:30-Dec-2019 Instruction Type:Patient Education Patient Instructions Indication:Vitamin D deficiency Start:30-Dec-2019 Instruction Type:Provider Instructions for Treatment How to access health informa tion online Indication:Current smoker Start:01-Jul-2019 Instruction Type:Patient Education How to access health informa tion online - Detail Indication:Current smoker Start:01-Jul-2019 Instruction Type:Patient Education Patient Instructions Indication:BMI 24.0-24.9, adult Start:01-Jul-2019 Instruction Type:Provider Instructions for Treatment How to access health informa tion online Indication:Current smoker Start:20-May-2019 Instruction Type:Patient Education How to access health informa tion online - Detail Indication:Current smoker Start:20-May-2019 Instruction Type:Patient Education Patient Instructions Indication:BMI 24.0-24.9, adult Start:20-May-2019 Instruction Type:Provider Instructions for Treatment How to access health informa tion online Indication:BMI 26.0-26.9,adult Start:05-Nov-2018 Instruction Type:Patient Education How to access health informa tion online - Detail Indication:BMI 26.0-26.9,adult Start:05-Nov-2018 Instruction Type:Patient Education Patient Instructions Indication:Staph infection Start:05-Nov-2018 Instruction Type:Provider Instructions for Treatment How to access health informa tion online Indication:Current smoker Start:04-May-2018 Instruction Type:Patient Education How to access health informa tion online - Detail Indication:Current smoker Start:04-May-2018 Instruction Type:Patient Education Patient Instructions Indication:Current smoker Start:04-May-2018 Instruction Type:Provider Instructions for Treatment How to access health informa tion online Indication:Current smoker Start:27-Apr-2018 Instruction Type:Patient Education How to access health informa tion online - Detail Indication:Current smoker Start:27-Apr-2018 Instruction Type:Patient Education Patient Instructions Indication:Current smoker Start:27-Apr-2018 Instruction Type:Provider Instructions for Treatment How to access health informa tion online Indication:Current smoker Start:24-Apr-2018 Instruction Type:Patient Education How to access health informa tion online - Detail Indication:Current smoker Start:24-Apr-2018 Instruction Type:Patient Education Patient Instructions Indication:Current smoker Start:24-Apr-2018 Instruction Type:Provider Instructions for Treatment How to access health informa tion online Indication:Current smoker Start:06-Apr-2018 Instruction Type:Patient Education How to access health informa tion online - Detail Indication:Current smoker Start:06-Apr-2018 Instruction Type:Patient Education Patient Instructions Indication:Current smoker Start:06-Apr-2018 Instruction Type:Provider Instructions for Treatment How to access health informa tion online Indication:Current smoker Start:04-Apr-2018 Instruction Type:Patient Education How to access health informa tion online - Detail Indication:Current smoker Start:04-Apr-2018 Instruction Type:Patient Education Patient Instructions Indication:Current smoker Start:04-Apr-2018 Instruction Type:Provider Instructions for Treatment Summary Purpose Advance Directives No Advanced Directives Records Found Additional Source Comments (unrecognized sect ion and content) No Status Records Found INFORMATION SOURCE (unrecogn ized section and content) FOR RECORDS PERTAINING TO PATIENTS WHO ARE OR HAVE BEEN ENROLLED IN A CHEMICAL DEPENDENCY/SUBSTANCEABUSE PROGRAM, SOME INFORMATION MAY BE OMITTED. This clinical summary was aggregated from multiple sources. Caution should be exercised in using it in the provision of clinical care. This summary normalizes information from multiple sources, and as a consequence, information in this document may materially change the coding, format and clinical context of patient data. In addition, data may be omitted in some cases. CLINICAL DECISIONS SHOULD BE BASED ON THE PRIMARY CLINICAL RECORDS. [facility] [facility]. provides no warranty or guarantee of the accuracy or completeness of information in this document.
[2023-07-16 14:14] LABS: Absolute Lymphocyte Count 2.06 X10^3/uL (0.83-4.51); Absolute Neutrophil Count 2.3 X10^3/uL (2.0-7.7); Basophil# 0.04 X10^3/uL; Basophil% 0.8 % (0-1); Eosinophil# 0.11 X10^3/uL; Eosinophils% 2.3 % (0-5); Hematocrit 44.4 % (40-54); Hemoglobin 15.2 g/dL (13.0-16.5); Lymphocyte # 2.06 X10^3/ul (0.83-4.51); Lymphocyte % 42.2 % (19-41); Mean Corp Hgb Conc 34.2 g/dL (32-36); Mean Corpuscular Hgb 34.9 pg (27.0-32.0); Mean Corpuscular Volume 102.1 fL (80-94); Mean Platelet Vol. 8.9 fl (6.2-12.0); Monocyte# 0.36 X10^3/uL; Monocyte% 7.4 % (0-10); NRBC Flagged by Analyzer 0 % (0-5); Neutrophil # 2.28 X10^3/uL (2.7-7.7); Neutrophil % 46.7 % (47-70); Platelet Count 180 K/mm3 (150-450); RBC Distribution Width CV 12.8 % (11.6-14.6); RBC Distribution Width SD 48.2 fl (35.1-43.9); Red Blood Count 4.35 M/mm3 (4.6-6.2); White Blood Count 4.9 K/mm3 (4.4-11.0)
[2023-07-16 14:15] LABS: Bacteria 0 SEEN /hpf (None Seen); Mucous, Urine 0 SEEN /hpf (<or=2+); Red Blood Cells-Urine 0 SEEN /hpf (0-5); Squamous Epithelial Cells - UA 0 SEEN /hpf (0-5)
[2023-07-16 14:19] LABS: Color, Urine Yellow (Yellow); Glucose, Dipstick Normal (Normal); Ketone-Dipstick 5 mg/dl (Negative); Leukocyte Esterase-Dipstick 25 /ul (Negative); Nitrite-Dipstick Negative (Negative); Occult Blood-Urine 10 /ul (Negative); Protein-Dipstick 30 mg/dl (Negative); Specific Gravity, Urine 1.025 (1.002-1.030); Urine Clarity Clear (Clear); Urine Urobilinogen 1 mg/dl (Normal)
[2023-07-16 14:21] LABS: Urine Bilirubin Dipstick 1 mg/dL (Negative)
[2023-07-16 14:22] LABS: White Blood Cells 0-5 SEEN /hpf (0-5)
[2023-07-16 14:25] LABS: Anion Gap 8 (5-15); BUN 11 mg/dL (7-18); BUN/Creat Ratio 12.5 RATIO (10-20); Calcium,Total 8.7 mg/dL (8.5-10.1); Chloride 109 mmol/L (98-107); Creatinine, Serum 0.88 mg/dL (0.70-1.30); EST Glomerular Filtration Rate 100 mL/min (>60); Est Glom Filt Rate - Afr Amer 121 mL/min (>60); Estimated Creatinine Clearance 121.06 ml/min; Glucose 87 mg/dL (74-106); Potassium 3.7 mmol/L (3.5-5.1); Sodium Level 140 mmol/L (136-145)
[2023-07-16 14:44] VITALS: BP 146/103; PULSE 70; RESP 16; TEMP 36.8; O2SAT 98
== END 2023-07-16 14:45 | disposition home or self-care (01) ==
PROVIDERS: Physician Assistant; Emergency Provider Emergency Medicine; Visit Provider Emergency Medicine
DX: R34 Anuria and oliguria (principal); I10 Essential (primary) hypertension; F17.210 Nicotine dependence, cigarettes, uncomplicated
CPT/HCPCS: 80048; 81001; 85025; 99283

== ENCOUNTER → 2023-08-03 | Outpatient (CLI) | payer OTHER, SELFPAY ==
--- NOTE | 2023-08-03 18:44 | CT_ITS ---
STUDY: CT ABDOMEN AND PELVIS WITHOUT CONTRAST REASON FOR EXAM: Male, 43 years old. rule out kidney stones -- STONE protocol RADIATION DOSAGE (If Supplied By Facility): CTDIvol = ( 6.61 ) mGy, DLP = ( 371.51 ) mGycm TECHNIQUE: Transaxial images were obtained from the dome of the diaphragm to the symphysis pubis without oral contrast, and without intravenous contrast. Sagittal and coronal images were reconstructed. Individualized dose optimization techniques were used for this CT. COMPARISON: None. FINDINGS: The visualized lung bases are unremarkable. The visualized portions of the heart are within normal limits. Normal liver. Normal gallbladder and extrahepatic biliary system. Normal spleen. Normal pancreas. Normal bilateral adrenal glands. Normal right kidney. Normal left kidney. Normal visualized stomach. Normal small intestine. Normal colon. The appendix is visualized and appears normal. Normal abdominal aorta. Normal inferior vena cava. Normal retroperitoneum. Normal urinary bladder. Normal abdominal wall. Normal osseous structures. CT/Abdomen/Pelvis without Cont IMPRESSION: Normal unenhanced CT of the abdomen and pelvis. No renal stones or hydronephrosis. Electronically Signed: Phan Moya DO at 19:20 EDT Reading Location ID and State: [facility] / [place] Tel [phone], Service support ,
== END | disposition home or self-care (01) ==
LOC: CT 18:44
PROVIDERS: Visit Provider Physician Assistant
DX: R10.9 Unspecified abdominal pain (principal); R34 Anuria and oliguria
CPT/HCPCS: 74176

== ENCOUNTER → 2023-09-04 | Outpatient (CLI) | payer OTHER, SELFPAY ==
--- NOTE | 2023-09-04 16:30 | RAD_ITS ---
STUDY: X-RAY - THORACIC SPINE REASON FOR EXAM: Male, 43 years old. Left lower back pain. TECHNIQUE: 3 view(s) of the thoracic spine were obtained. COMPARISON: None. FINDINGS: There is an increase in the normal thoracic kyphosis. There is no substantial scoliosis. There is multilevel endplate spondylosis of the thoracic vertebrae. There is multilevel disc space narrowing of the thoracic spine. The soft tissue structures are unremarkable. RAD/Thoracic Spine 3 Views IMPRESSION: Multilevel disc space narrowing and spondylosis more prominent in the mid and lower dorsal spine. Increased kyphosis. Electronically Signed: Maco Rivera MD at 14:51 EDT ,
== END | disposition home or self-care (01) ==
LOC: RAD 16:30
PROVIDERS: PCP Internal Medicine; Referring Provider Physician Assistant; Visit Provider Physician Assistant
DX: M54.6 Pain in thoracic spine (principal)
CPT/HCPCS: 72072

== ENCOUNTER 2025-02-06 18:57 | Emergency (ER) | payer OTHER, SELFPAY ==
[2025-02-06 19:01] VITALS: BP 162/100; PULSE 88; RESP 16; TEMP 36.9; O2SAT 98
--- NOTE | 2025-02-06 19:24 | EX.ED.DYSGE1 ---
HPI History of Present Illness Chief Complaint: Abd Pain Detail of Chief Complaint: Abdominal discomfort. Informant: patient Onset/Context/Timing Onset: Today (Constant today) and Yesterday (Intermittent yesterday.) Context: - (Patient did not describe it coming on abruptly.) Timing: Continuous Quality: When he is sitting up he feels as if his stomach is folded over. When he l Location: Upper abdomen bilaterally Current Severity: Mild Maximum Severity: Moderate Worsened by: When he sits up and when he is flat and stretches out Relieved by: Nothing Associated Symptoms Associated Symptoms: No constitutional symptoms. No GI symptoms Narrative Narrative: Patient is a 44-year-old gentleman. He presents with abdominal discomfort. He states that feels as if his stomach is folded over when he is sitting upright. When he lies flat he feels a tightness in his abdomen. Nothing alleviates the discomfort. He has not take anything. He denies prior history. He denies intolerance to greasy or fried foods. He denies nausea, vomiting or diarrhea. He denies constipation. He states he had a normal bowel movement last evening. He denies urologic symptoms. Triage documented flank pain. He is denying flank pain. He does admit to smoking 1 pack/day for 25 to 30 years. He denies new cough, chest pain, pressure, tightness, heaviness or pleuritic pain. He does have a slight cough. His cough is nonproductive. He has no upper respiratory tract infectious symptoms. He denies dysuria, frequency, urgency or hematuria. He denies history of renal ureterolithiasis. Prior similar symptoms: No Recent Illness/Hospitalization: No PFSH PFSH Medical History Tear of lateral meniscus of right knee Patellar tendonitis of both knees Bilateral primary osteoarthritis of knee Hypertension Alcohol abuse Smoker Home Medications ?Medication ?Instructions ?Recorded ?Last Taken ?Type famotidine 20 mg tablet (Pepcid) 20 mg PO BID #30 tabs 02/06/25 Unknown Rx Allergy/AdvReac Type Severity Reaction Status Date / Time No Known Allergies Allergy Verified 02/06/25 19:02 Family History Mother Hypertension Father Hypertension Social History Smoking Status: Current every day smoker tobacco type: cigarettes alcohol intake: current alcohol intake frequency: a few times a month ROS ROS ED Constitutional Constitutional ED: Denies chills, fever(s), subjective, sweats or weight loss ENT ENT ED: Denies ear pain, rhinorrhea or sore throat Cardiovascular Cardiovascular: Denies chest pain, orthopnea, palpitations, paroxysmal nocturnal dyspnea or racing heartbeat Respiratory/Chest Respiratory/Chest: Reports cough, dyspnea and other Details: Mother informed that he complained of shortness of breath. ; Denies dyspnea on exertion, orthopnea, paroxysmal nocturnal dyspnea or sputum Gastrointestinal Gastrointestinal: Reports abdominal pain; Denies constipation, diarrhea, melena, nausea or vomiting Genitourinary Genitourinary ED: Denies dysuria or urinary frequency Musculoskeletal Musculoskeletal: Denies arthralgias, back pain or myalgias Integumentary Denies Abrasions or rash Neurologic Neurologic: Denies headache(s) or paresthesias Psychiatric Psychiatric: Denies anxiety or depression Endocrine Endocrinology: Denies cold intolerance or heat intolerance EXAM Physical Exam Const Vital Signs: 02/06/25 19:01 Temperature 98.4 F Temperature Source Oral Pulse Rate 88 Respiratory Rate 16 Blood Pressure 162/100 H Blood Pressure Mean 120 Pulse Ox 98 Oxygen Delivery Method Room Air Positive well nourished and well developed General Appearance ED: well developed and NAD; Negative for cyanotic or diaphoretic HEENT Reports moist mucous membranes HEENT Narrative: Head is atraumatic and normocephalic. Ears are normal. Nares patent. Posterior pharynx is normal. Uvula is midline. There is no deviation tongue or protrusion Eyes PERRL and EOMs intact bilaterally General Eye ED: Negative for pale conjunctiva or scleral icterus Neck no lymphadenopathy, supple and no JVD Chest Wall inspection of chest normal and palpation of chest normal Resp normal respiratory effort and clear to auscultation bilaterally Cardio regular rate, regular rhythm, S1 normal heart sound and S2 normal heart sound GI normal to inspection, nondistended, normoactive bowel sounds, non-tender and no masses; Negative for non-distended or hepatosplenomegaly GI Narrative: Patient is tympanitic to percussion throughout. Narrative: There is no inguinal adenopathy or mass noted right or left. Extremity normal to inspection General Extremety ED: Negative for edema or tenderness General Extremity: Negative for edema Neuro oriented x3 and CN's II-XII intact bilaterally Sensorium / Orientation: alert Psych mental status grossly normal Skin no rashes or lesions noted, no wounds and skin turgor normal General Skin Exam: elasticity normal MDM MDM MDM Narrative Medical decision making narrative: Patient with abnormal upper abdominal pain. Will obtain CBC to assess white count and differential. Since he does not have intolerance to greasy or fried foods negative right upper quadrant tenderness or Frankel sign hepatic profile was not obtained. Because it was reported that he had flank pain we will obtain UA to assess for blood doubt infection. There is blood will CT to rule out ureteral lithiasis. History & Record Review Additional record(s) reviewed:: Prior outpatient record (Urgent care visit for intercostal muscle pain July 2023. Orthopedic outpatient visit May [address] Serna.) and Prior ED visit (ED visit July 2023 for decreased urination.) Lab Data Attestation: I reviewed the patient's lab results. Lab results narrative: CBC reveals macrocytic indices. Basic metabolic panel reveals slight elevation in glucose otherwise unremarkable. UA is unremarkable other than slight ketones Labs: Laboratory Results - last 24 hr 02/06/25 02/06/25 19:45 20:40 WBC 5.1 RBC 4.21 L Hgb 15.0 Hct 42.4 MCV 100.7 H MCH 35.6 H MCHC 35.4 RDW Std Deviation 45.0 H RDW Coeff of Shea 12.1 Plt Count 138 L MPV 9.1 Immature Gran % (Auto) 0.200 Neut % (Auto) 67.7 Lymph % (Auto) 25.3 [place]ven % (Auto) 4.8 Eos % (Auto) 1.4 Baso % (Auto) 0.6 Absolute Neuts (auto) 3.4 Absolute Lymphs (auto) 1.28 Nucleated RBC % 0 Sodium 136 Potassium 3.8 Chloride 101 Carbon Dioxide 22.7 Anion Gap 13 BUN 11 Creatinine 0.95 Est GFR (MDRD) Non-Af 101 BUN/Creatinine Ratio 11.5 Glucose 108 H Calcium 9.4 Urine Color Yellow Urine Clarity Clear Urine pH 6.0 Ur Specific [place] 1.015 Urine Protein 30 H Urine Glucose (UA) Normal Urine Ketones 5 H Urine Occult Blood Negative Urine Nitrite Negative Urine Bilirubin Negative Urine Urobilinogen 1 H Ur Leukocyte Esterase Negative Urine RBC 0 SEEN Urine WBC 0 SEEN Ur Squamous Epith Cells 0 SEEN Urine Bacteria 1+ Urine Mucus 0 SEEN Patient was informed of his results. He has no urinary symptoms will not treat the 1+ bacteria specimen since no pyuria and he is asymptomatic. Since patient's exam was not remarkable and his blood work was unremarkable he was given a GI cocktail. When he was reassessed at 2114 he reports significant improvement. Will discharge on H2 monet and have him follow-up with his doctor. Discharge Plan Triage Chief Complaint: Abd Pain Other Complaint: Flank Pain ED Provider: Aravind Wall Dx/Rx/DC Orders Clinical Impression: Bilateral upper abdominal pain, Ketosis, Macrocytosis, Tobacco dependence, Bilateral primary osteoarthritis of knee Instructions: ED Peptic Ulcer Prescriptions: New famotidine [Pepcid] 20 mg tablet 20 mg PO BID Qty: 30 0RF Primary Care Provider: Enid Jones Referrals: Enid Jones MD [Primary Care Provider, Internal Medicine] - 1-2 Weeks Activity Restrictions/Additional Instructions: Return if you vomit what appears to look like coffee grounds, black stool or maroon stool. Otherwise follow-up with your doctor Print Language: Georgian Disposition Disposition: Home, Self Care
[2025-02-06 19:58] LABS: Hematocrit 42.4 % (40-54); Hemoglobin 15.0 g/dL (13.0-16.5); Immature Granulocytes Count 0.010 X10^3/uL (0.0-0.0); Mean Corp Hgb Conc 35.4 g/dL (32-36); Mean Corpuscular Volume 100.7 fL (80-94); Mean Platelet Vol. 9.1 fl (6.2-12.0); NRBC Flagged by Analyzer 0 % (0-5); Platelet Count 138 K/mm3 (150-450); RBC Distribution Width CV 12.1 % (11.6-14.6); RBC Distribution Width SD 45.0 fl (35.1-43.9); Red Blood Count 4.21 M/mm3 (4.6-6.2); White Blood Count 5.1 K/mm3 (4.4-11.0)
[2025-02-06 20:15] LABS: Anion Gap 13 (5-15); BUN 11 mg/dL (4-19); BUN/Creat Ratio 11.5 RATIO (10-20); Calcium,Total 9.4 mg/dL (7.6-11.0); Carbon Dioxide 22.7 mmol/L (21.0-32.0); Chloride 101 mmol/L (98-108); Glucose 108 mg/dL (70-99); Potassium 3.8 mmol/L (3.3-5.1)
[2025-02-06] MEDS: Lidocaine 2% Viscous15 ML UDC 15 ML PO (20:22)
[2025-02-06 20:43] LABS: Mucous, Urine 0 SEEN /hpf (<or=2+); Red Blood Cells-Urine 0 SEEN /hpf (0-5); Squamous Epithelial Cells - UA 0 SEEN /hpf (0-5)
[2025-02-06 20:49] LABS: Color, Urine Yellow (Yellow); Glucose, Dipstick Normal (Normal); Ketone-Dipstick 5 mg/dl (Negative); Leukocyte Esterase-Dipstick Negative /ul (Negative); Nitrite-Dipstick Negative (Negative); Occult Blood-Urine Negative /ul (Negative); Protein-Dipstick 30 mg/dl (Negative); Specific Gravity, Urine 1.015 (1.002-1.030); Urine Bilirubin Dipstick Negative (Negative)
[2025-02-06 21:00] VITALS: BP 128/95; PULSE 75; RESP 16; TEMP 36.8; O2SAT 98
[2025-02-06 21:37] VITALS: BP 128/95; PULSE 75; RESP 16; TEMP 36.8; O2SAT 98
== END 2025-02-06 21:39 | disposition home or self-care (01) ==
PROVIDERS: Emergency Provider Emergency Medicine; PCP Internal Medicine; Visit Provider Emergency Medicine
DX: R10.11 Right upper quadrant pain (principal); E88.89 Other specified metabolic disorders; D75.89 Other specified diseases of blood and blood-forming organs; M19.91 Primary osteoarthritis, unspecified site; I10 Essential (primary) hypertension; F17.210 Nicotine dependence, cigarettes, uncomplicated; R05.9 Cough, unspecified; R06.00 Dyspnea, unspecified; R10.12 Left upper quadrant pain
CPT/HCPCS: 80048; 81001; 85025; 99285; A4216